=== PATIENT | male | born 1960 | race Caucasian/White ===

== ENCOUNTER 2022-02-05 01:37 | Inpatient (IN) | payer BC, OTHER ==
--- OUTSIDE RECORDS SUMMARY | 2022-02-05 01:39 | XMS REPORT | Continuity of Care Document ---
:1960 Author Organization [facility] t Address [address] [place] [address] Care Team Providers Name Role Phone Jorge Luis Gutierrez Jeffrey Attending Clinician Unavailable Eula Leal Attending Clinician Unavailable Eula Leal Admitting Clinician Unavailable Payers Payer Name Policy Type Policy Number Effective Date Expiration Date S ource Problems This patient has no known problems. Allergies, Adverse Reactions, Alerts This patient has no known allergies or adverse reactions. Medications This patient has no known medications. Procedures This patient has no known procedures. Encounters Start End Encounter Admission Attending Care Care Encounter Source Date/Time Date/Time Type Type Clinicians Facility Department ID 2021-07-07 Outpatient Matt AGUSTO [facility] Common 14:24:33 Jorge Luis [id number] [facility] 2021-07-07 Outpatient SHANELLE Gutierrez [facility] [id number] Common 14:15:52 Jorge Luis [id number] [facility] 2021-07-07 Outpatient Gutierrez, STLMLC [facility] [id number] Common 14:07:36 Jorge Luis 86893 [facility] 2021-07-07 Outpatient Gutierrez, STLMLC ST[facility] [id number] Common 13:48:57 Jorge Luis 32339 [facility] 2021-07-07 Outpatient Gutierrez, STLMLC STL[facility]C [id number] Common 13:38:11 Jorge Luis 54437 [facility] 2021-07-07 Outpatient Gutierrez, STLMLC STLMLC [id number] Common 13:37:43 Jorge Luis 36094 [facility] 2021-07-07 Outpatient Gutierrez, STLMLC STLMLC [id number] Common 13:37:06 Jorge Luis [id number] [facility] 2021-07-07 Outpatient Gutierrez, STLMLC STLMLC [id number] Common 13:16:26 Jorge Luis 40325 [facility] 2021-07-07 Outpatient Gutierrez, STLMLC STLMLC [id number] Common 13:06:08 Jorge Luis 80489 [facility] 2021-07-07 Outpatient Gutierrez, STLMLC STLMLC [id number] Common 12:05:34 Jorge Luis 24046 [facility] 2021-07-07 Outpatient Gutierrez, STLMLC ST[facility]C [id number] Common 11:49:58 Jorge Luis [id number] [facility] 2022-01-07 2022-01-07 [facility] [id number] 08:10:00 08:10:00 Eula [address] [facility] 2021-05-10 2021-05-10 ambulatory STLMLC STL[facility]C [id number] Common 00:00:00 00:00:00 [facility] 2021-04-15 2021-04-15 ambulatory STLMLC STL[facility]C [id number] Common 00:00:00 00:00:00 [facility] 2021-04-14 2021-04-14 ambulatory STLMLC ST[facility] [id number] Common 00:00:00 00:00:00 [facility] 2021-04-07 2021-04-07 Outpatient STLMLC [facility] [id number] Common : 00:00:00 [facility] 2021-03-18 2021-03-18 Outpatient STLMLC [facility] [id number] Common : 00:00:00 [facility] 2021-01-22 2021-01-22 Outpatient STLMLC STLMLC [id number] Common 00:00: 00:00:00 [facility] 2020-11-27 2020-11-27 Outpatient STLMLC STL[facility]C [id number] Common 00:00 00:00:00 [facility] 2020-10-30 2020-10-30 Outpatient STLMLC ST[facility]C [id number] Common 00:0000 00:00:00 [facility] 2020-04-06 2020-04-06 Outpatient STLMLC ST[facility] [id number] Common 00:00 00:00:00 [facility] 2020-03-27 2020-03-27 Outpatient STLMLC [facility] [id number] Common 00:0000 00:00:00 [facility] 2020-03-10 2020-03-10 Outpatient STLMLC ST[facility]C [id number] Common 00:00:00 00:00:00 [facility] Results Test Description Test Time Test Comments Results Result [facility] e Comments - CT LD LUNG CA 2022-01-10 SCREENING 00:00:00 [facility] Dia : 1960 Sex: M Name: JEB [facility] Berkey : 1960 Age/S: 61 / M [address] [place] [address] Unit #: [id number] Loc: [place] [address] Phys: Eula Leal MD Acct: [id number] Dis Date: Status: DEP CLI PHONE #: [phone] Exam Date: 01/07/2022 08 FAX #: [phone] Reason: TOBACCO USE EXAMS: CPT CODE: [id number] CT LD LUNG CA SCREENING 02981 PROCEDURE INFORMATION: Exam: CT Chest For Lung Cancer Screening Without Contrast Exam date and time: 01/07/2022 8:28 AM Age: 61 years old Clinical indication: Screening exam; Personal history of tobacco use/personal history of nicotine dependence Additional history: Asymptomatic patient meeting high-risk criteria for lung screening. Patient is currently a smoker. There is a 45 pack-year history of smoking. Baseline. TECHNIQUE: Imaging protocol: CT Chest. Low-dose for lung cancer screening without contrast. 3D rendering (Not supervised by radiologist): MIP and/or 3D reconstructed images were created by the technologist. Radiation optimization: All CT scans at this facility use at least one of these dose optimization techniques: automated exposure control; mA and/or kV adjustment per patient size (includes targeted exams where dose is matched to clinical indication); or iterative reconstruction. COMPARISON: No relevant prior studies available. FINDINGS: Lungs: The hypopharyngeal recesses are distended. The central tracheobronchial tree is grossly normal without intraluminal mass. Smooth interlobular septal thickening is noted at the lung bases which may represent mild pulmonary edema. Small nonspecific foci ground-glass pulmonary parenchymal opacity are noted at the lateral basal right lower lobe, ventral right middle lobe and the ventral upper lobes bilaterally. Ssoc-om-mtlhhovb centrilobular and paraseptal emphysema. A calcified granuloma at the ventral left upper lobe. Reticular scarring is present at the right middle lobe. Lung nodules: Nodule 1: Right lung. 4.5 mm solid nodule. Baseline. Series 4, image 42. Nodule 2: Right lung. 4.8 mm solid nodule. Baseline. Series 4, image 91. Nodule 3: Right lung. 3.2 mm solid nodule. Baseline. Series 4, image 119. Nodule 4: Right lung. 3.2 mm solid nodule. Baseline. Series 4, image 226. Nodule 5: Left lung. 4.2 mm solid nodule. Baseline. Series 4, image 211. Up to 5 most suspicious nodules are described. Pleural space: Nonspecific fissural thickening. No pneumothorax. No pleural effusion. PAGE 1 Signed Report (CONTINUED) Name: JEB [facility] Berkey : 1960 Age/S: 61 / M [address] [place] [address] Blvd Unit #: [id number] Loc: [place] [address] Phys: Eula Leal MD Acct: [id number] Dis Date: Status: DEP CLI PHONE #: [phone] Exam Date: 01/07/2022825 FAX #: [phone] Reason: TOBACCO USE EXAMS: CPT CODE: [id number] CT LD LUNG CA SCREENING 87699 (Continued) Heart: Yinh-hd-irvzftqx cardiomegaly with coronary artery calcifications. No pericardial fluid collection. Mediastinum: Unremarkable. Vasculature: Vascular calcification great vessels arising from the arch. Vascular calcification normal caliber thoracic aorta. Vascular calcification normal caliber proximal abdominal aorta with extension into the celiac and splenic arteries. Lymph nodes: Non threhold mediastinal lymph nodes. No enlarged lymph nodes. Stomach and bowel: Air is present within the esophageal lumen which may represent evidence of reflux and/or esophageal dysmotility. Physiologic fluid at the mediastinal pericardial recesses. Bones/joints: No acute osseous abnormality. Subcentimeter benign bone islands are noted at several of the thoracic and upper lumbar vertebral bodies. Soft tissues: Unremarkable. Other findings: None. IMPRESSION: 1.Category 2S: Negative, benign findings with no evidence of malignancy. Suggest next LDCT in 12 months if age less than 77 years. 2. Mild interstitial edema at the bases. 3. Scattered ground-glass pulmonary parenchymal opacities which could represent acute airspace disease. ASSESSMENT: Lung-RADS Score 2S at 1211 Reported and signed by: Milton Harris M.D. CC: Eula Leal MD Technologist:Chikis London RT(R)(CT) CTDI: DLP: Trnscb Date/Time: 01/10/2022 (1211) [email or web address] Orig Print D/T: S: 01/10/2022 (6222) PAGE 2 Signed Report COMPREHENSIVE METABOLIC PANEL 2021-11-22 03:38:27 Test Item Value Reference Range Interpretation Comme nts GLUCOSE (test code = 2216) 77 MG/DL 70-99 BUN (test code = 2207) 8 MG/DL 8-23 CREATININE (test code = 0.78 MG/DL 0.80-1.40 L 2213) eGFR (2020 CKD-EPI) (test 102 ML/MIN/1.73 >60 code = 23464) CALC BUN/CREAT (test code = 10 RATIO 6-28 2234) SODIUM (test code = 2230) 139 MEQ/L 133-146 POTASSIUM (test code = 4.1 MEQ/L 3.5-5.4 2227) CHLORIDE (test code = 2214) 99 MEQ/L 95-107 CARBON DIOXIDE (test code = 23 MEQ/L 19-31 2205) CALCIUM (test code = 2208) 9.9 MG/DL 8.5-10.5 PROTEIN, TOTAL (test code = 7.1 G/DL 6.1-8.3 2228) ALBUMIN (test code = 220) 4.6 G/DL 3.5-5.2 CALC GLOBULIN (test code = 2.5 G/DL 1.9-3.7 2239) CALC A/G RATIO (test code = 1.8 RATIO 1.0-2.6 2233) BILIRUBIN, TOTAL (test code 0.4 MG/DL See_Comment [Automated message] The = 2206) system which ge nerated this result transmit teresa reference range: <=1.2. T he reference range was not u sed to interpret this result as normal/abnormal . ALKALINE PHOSPHATASE (test 55 U/L 40-123 code = 2204) AST (test code = 2218) 31 U/L 9-50 ALT (test code = 2219) 20 U/L 5-50 UNLE SS OTHERWISE INDICATED, ALL TESTING PER FORMED [facility], [place] [address] [facility], [facility] [address] CTOR: MICHELLE BENTLEY M.D. CLIA NUMBER [id number] [place]. [id number]
[2022-02-05 02:06] LABS: Hematocrit 47.6 % (39.6-49.0); Lymphocytes % 16.4 % (15.3-44.8); MCV 99.4 fL (80-100); MPV 12.3 fL (7.6-11.3); RBC Red Blood Cell Count 4.79 M/uL (4.33-5.43)
[2022-02-05 02:26] LABS: Potassium 4.5 mmol/L (3.5-5.1); Troponin High Sensitivity 54.9 pg/mL (<58.9)
[2022-02-05 02:48] LABS: Blood Morphology Comment NOT SEEN (NOT SEEN); Platelet Estimate DECR; Platelets, Giant 1+; White Blood Cell Scan OK (OK)
--- NOTE | 2022-02-05 05:08 | EDPHYS ---
Physician Documentation [facility] Name: Jeb Choudhury Age: 61 yrs Sex: Male : 1960 Arrival Date: 02/05/2022 Time: 01:39 Bed 7 Private MD: ED Physician Jesse Alexandra HPI: 02/05 02:01 This 61 yrs old Male presents to ER via Ambulatory with complaints of Breathing ms3 Difficulty. 02:01 The patient has shortness of breath at rest. Onset: The symptoms/episode began/occurred ms3 acutely, 1.5 month(s) ago. Duration: The symptoms are continuous. The patient's shortness of breath has no apparent modifying factors. Associated signs and symptoms: The patient has no apparent associated signs or symptoms. Severity of symptoms: At their worst the symptoms were moderate in the emergency department the symptoms are unchanged. Historical: - Allergies: 01:54 No Known Allergies; bb - Home Meds: 01:54 trelegy [Active]; Atrovent Inhl [Active]; rosuvastatin oral [Active]; bb - PMHx: 01:54 Chronic obstructive lung disease; Hypertensive disorder; bb - Immunization history:: Flu vaccine is up to date. - Social history:: Smoking status: Patient/guardian denies using tobacco, Stopped _ months ago 1. ROS: 02:01 Constitutional: Negative for fever, and chills. Neck: Negative for injury, pain, and ms3 swelling, Cardiovascular: Negative for chest pain, and palpitations. Abdomen/GI: Negative for abdominal pain, nausea, vomiting, diarrhea, and constipation, MS/Extremity: Negative for injury and deformity, Skin: Negative for injury, rash, and discoloration, Neuro: Negative for headache, weakness, numbness, tingling. 02:01 Respiratory: Positive for dyspnea on exertion, orthopnea, shortness of breath. Exam: 02:01 Constitutional: This is a well developed, well nourished patient who is awake, alert, ms3 and in no acute distress. Head/Face: Normocephalic, atraumatic. Neck: Trachea midline, no cervical lymphadenopathy. Supple, full range of motion without nuchal rigidity, or vertebral point tenderness. No Meningismus. Chest/axilla: Normal chest wall appearance and motion. Nontender with no deformity. Respiratory: Lungs have equal breath sounds bilaterally, clear to auscultation and percussion. No rales, rhonchi or wheezes noted. No increased work of breathing, no retractions or nasal flaring. 02:01 Skin: Warm, dry with normal turgor. Normal color with no rashes, no lesions, and no evidence of cellulitis. Psych: Awake, alert, with orientation to person, place and time. Behavior, mood, and affect are within normal limits. 02:01 Cardiovascular: Rate: tachycardic, Rhythm: regular, Pulses: no pulse deficits are appreciated, Heart sounds: normal. 02:01 ECG was reviewed by the Attending Physician. Vital Signs: 01:51 BP 105 / 85; Pulse 124; Resp 28; Temp 98(A); Pulse Ox 95% on R/A; Weight 63.5 kg (R); bb Height 5 ft. 6 in. (167.64 cm) (R); 02:30 BP 113 / 88; Pulse 123; Resp 20; Pulse Ox 96% on R/A; jb4 04:00 BP 107 / 93; Pulse 124; Resp 20; Pulse Ox 100% on R/A; jb4 05:10 BP 120 / 91; Pulse 126; Resp 32; Pulse Ox 96% on R/A; tw5 06:01 BP 92 / 66; Pulse 111; Resp 25; Pulse Ox 93% on R/A; tw5 01:51 Body Mass Index 22.60 (63.50 kg, 167.64 cm) bb MDM: 02:01 Differential diagnosis: Anemia CHF exacerbation, Chronic Obstructive Pulmonary Disease ms3 Myocardial Infarction pulmonary edema. Data reviewed: vital signs, nurses notes, lab test result(s), EKG, radiologic studies, and as a result, I will admit patient. Data interpreted: monitoring analyst: rate is 125 beats/min, rhythm is sinus tachycardia, with no ectopy, Interpretation: normal rate, normal rhythm. Counseling: I had a detailed discussion with the patient and/or guardian regarding: the historical points, exam findings, and any diagnostic results supporting the discharge/admit diagnosis, lab results, radiology results, the need for further work-up and treatment in the hospital. ED course: No source of infection identified at this time. Pulmonary edema present 2/2 congestive heart failure. 02:16 Patient medically screened. ms3 02/05 01:53 Order name: Basic Metabolic Panel; Complete Time: 02:56 02/05 01:53 Order name: CBC with Diff; Complete Time: 02:56 02/05 01:53 Order name: Troponin HS; Complete Time: 02:56 tw02/05 01:54 Order name: SARS-COV-2 RT PCR (Document "Date of Onset" if Symptomatic); Complete Time: 02:56 02/05 02:12 Order name: CBC Smear Scan; Complete Time: 02:56 EDMS 02/05 02:57 Order name: BNP; Complete Time: 03:35 ms3 02/05 01:53 Order name: XRAY Chest (1 view) 02/05 01:53 Order name: EKG; Complete Time: 01:54 02/05 01:53 Order name: Cardiac monitoring; Complete Time: 01:53 tw02/05 01:53 Order name: EKG - Nurse/Tech; Complete Time: 02:01 02/05 01:53 Order name: IV Saline Lock; Complete Time: 01:53 02/05 02:17 Order name: CT Chest For PE Angio ms3 02/05 01:53 Order name: Labs collected and sent; Complete Time: 01:53 02/05 01:53 Order name: O2 Per Protocol; Complete Time: 02:01 02/05 01:53 Order name: O2 Sat Monitoring; Complete Time: 02:01 EC:01 Rate is 125 beats/min. Rhythm is regular. QRS [place] is Normal. [place] interval is normal. ms3 Clinical impression: Sinus tachycardia. Interpreted by me. Reviewed by me. Administered Medications: 05:11 Drug: Metoprolol 5 mg Route: IVP; Site: right antecubital; tw5 06:00 Follow up: Response: No adverse reaction 06:00 Drug: XANax (alprazolam) Tablet 0.5 mg Route: PO; tw5 Disposition Summary: 02/05/22 05:07 Hospitalization Ordered Hospitalization Status: Inpatient Admission ms3 Provider: Manish Gomes ms3 Condition: Stable ms3 Problem: new ms3 Symptoms: are unchanged ms3 Bed/Room Type: Standard ms3 Location: Telemetry/MedSurg (Inpatient)(08/27/22 10:56) dw Room Assignment: 416(02/05/22 10:56) dw Diagnosis - Tachycardia, unspecified ms3 - Shortness of breath ms3 - Congestive heart failure ms3 - pulmonary edema ms3 Forms: - Medication Reconciliation Form ms3 - SBAR form ms3 Signatures: Dispatcher [employer] EDMS Mercedes Clemente RN RN mw Woody, Diana, RN RN dw Ballard, Brenda, RN RN bb Sims, Marcus, DO DO ms3 Lisa Mackey tw5 Farrah Burton PA PA sb3 Corrections: (The following items were deleted from the chart) 05:12 05:08 This 61 yrs old Male presents to ER via Ambulatory with complaints of Breathing ms3 Difficulty. ms3 05:43 05:07 Telemetry/MedSurg (Inpatient) ms3 mw 05:43 05:07 ms3 mw 10:56 05:43 [facility] ER HOLD mw dw 10:56 05:43 ERHOLD- mw dw
--- NOTE | 2022-02-05 05:08 | ER ---
Nurse's Notes [facility] Name: Jeb Choudhury Age: 61 yrs Sex: Male : 1960 Arrival Date: 02/05/2022 Time: 01:39 Bed 7 Private MD: Diagnosis: Tachycardia, unspecified;Shortness of breath;Congestive heart failure;pulmonary edema Presentation: 02/05 01:51 Chief complaint: Spouse and/or significant other states: pt recently diagnosed with bb COPD and has had difficulty breathing for several months but it has gotten worse. Coronavirus screen: Client presents with at least one sign or symptom that may indicate coronavirus-19. Standard/surgical mask placed on the client. Ebola Screen: No symptoms or risks identified at this time. Initial Sepsis Screen: Does the patient meet any 2 criteria? No. Patient's initial sepsis screen is negative. Does the patient have a suspected source of infection? No. Patient's initial sepsis screen is negative. Risk Assessment: Do you want to hurt yourself or someone else? Patient reports no desire to harm self or others. Onset of symptoms was February 05, 2022. 01:51 Method Of Arrival: Ambulatory bb 01:51 Acuity: CHAD 3 bb Triage Assessment: 02:00 General: Appears uncomfortable, Behavior is appropriate for age, anxious. Respiratory: tw5 Reports shortness of breath at rest Onset: The symptoms/episode began/occurred the patient has moderate shortness of breath. Historical: - Allergies: 01:54 No Known Allergies; bb - Home Meds: 01:54 trelegy [Active]; Atrovent Inhl [Active]; rosuvastatin oral [Active]; bb - PMHx: 01:54 Chronic obstructive lung disease; Hypertensive disorder; bb - Immunization history:: Flu vaccine is up to date. - Social history:: Smoking status: Patient/guardian denies using tobacco, Stopped _ months ago 1. Screenin:53 Abuse screen: Denies threats or abuse. Denies injuries from another. Nutritional tw5 screening: No deficits noted. Tuberculosis screening: No symptoms or risk factors identified. Fall Risk None identified. Assessment: 01:43 General: Reports "I am not hurting, I just feel like I cannot breath. Pain: Denies tw5 pain. Neuro: Level of Consciousness is awake, alert, obeys commands, Oriented to person, place, time, situation. Cardiovascular:. Cardiovascular: Pulses are palpable in right radial artery and left radial artery. Respiratory: Airway is patent Trachea midline Respiratory effort is labored, Breath sounds are clear. 01:52 Cardiovascular: Rhythm is sinus tachycardia. tw5 03:00 Reassessment: Patient appears in no apparent distress at this time. Patient and/or jb4 family updated on plan of care and expected duration. Pain level reassessed. Patient is alert, oriented x 3, equal unlabored respirations, skin warm/dry/pink. 04:00 Reassessment: Patient appears in no apparent distress at this time. Patient and/or jb4 family updated on plan of care and expected duration. Pain level reassessed. Patient is alert, oriented x 3, equal unlabored respirations, skin warm/dry/pink. Patient states feeling better. 05:12 Reassessment: Patient appears in no apparent distress at this time. No changes from tw5 previously documented assessment. Patient and/or family updated on plan of care and expected duration. Pain level reassessed. Patient is alert, oriented x 3, equal unlabored respirations, skin warm/dry/pink. General: Appears in no apparent distress. Behavior is calm, cooperative. 05:52 Reassessment: Pt placed on 2L NC per providers instruction. jb4 Vital Signs: 01:51 BP 105 / 85; Pulse 124; Resp 28; Temp 98(A); Pulse Ox 95% on R/A; Weight 63.5 kg (R); bb Height 5 ft. 6 in. (167.64 cm) (R); 02:30 BP 113 / 88; Pulse 123; Resp 20; Pulse Ox 96% on R/A; jb4 04:00 BP 107 / 93; Pulse 124; Resp 20; Pulse Ox 100% on R/A; jb4 05:10 BP 120 / 91; Pulse 126; Resp 32; Pulse Ox 96% on R/A; tw5 06:01 BP 92 / 66; Pulse 111; Resp 25; Pulse Ox 93% on R/A; tw5 01:51 Body Mass Index 22.60 (63.50 kg, 167.64 cm) ED Course: 01:39 Patient arrived in ED. ja2 01:43 Lisa Mackey is Primary Nurse. tw5 01:53 Placed in gown. Bed in low position. Call light in reach. Side rails up X 1. Cardiac tw5 monitor on. Pulse ox on. NIBP on. Door closed. Noise minimized. Moved to private room. Warm blanket given. Verbal reassurance given. 01:53 Initial lab(s) drawn, by me, sent to lab. Inserted saline lock: 20 gauge in right tw5 antecubital area, using aseptic technique. Blood collected. 01:54 Triage completed. bb 02:00 Arm band placed on right wrist. tw5 02:01 Basic Metabolic Panel Sent. tw5 02:01 CBC with Diff Sent. tw5 02:01 Troponin HS Sent. tw5 02:01 SARS-COV-2 RT PCR (Document "Date of Onset" if Symptomatic) Sent. tw5 02:01 EKG done, by tech writer. reviewed by Jesse Alexandra DO. tw5 02:04 Jesse Alexandra DO is Attending Physician. ms3 02:09 XRAY Chest (1 view) In Process Unspecified. EDMS 03:26 CT Chest For PE Angio In Process Unspecified. EDMS 05:07 Manish Gomes is Hospitalizing Provider. ms3 05:11 No provider procedures requiring assistance completed. tw5 08:16 Patient admitted, IV remains in place. ph Administered Medications: 05:11 Drug: Metoprolol 5 mg Route: IVP; Site: right antecubital; tw5 06:00 Follow up: Response: No adverse reaction tw5 06:00 Drug: XANax (alprazolam) Tablet 0.5 mg Route: PO; tw5 Medication: 05:12 VIS not applicable for this client. tw5 Outcome: 05:07 Decision to Hospitalize by Provider. ms3 08:16 Admitted to ER Hold. Please see [facility] for further documentation. ph 08:16 Condition: stable 08:16 Instructed on the need for admit. 13:17 Patient left the ED. ll1 Signatures: Dispatcher [employer] Leonarda Adame RN RN bb Hall, Patricia, RN RN ph Bryson, James, RN RN jb4 Lewis, Lynsay, RN RN ll1 Jesse Alexandra DO DO ms3 Criselda Christian buddyShade Lisa Mackey tw5
[2022-02-05] MEDS ORDERED: METOPROLOL TARTRATE 5 MG/5 ML INJ IV ONE (05:17)
--- NOTE | 2022-02-05 05:48 | P.HP ---
Certification for Inpatient Patient admitted to: Inpatient With expected LOS: <2 Midnights Patient will require the following post-hospital care: None Practitioner: I am a practitioner with admitting privileges, knowledge of patient current condition, hospital course, and medical plan of care. Services: Services provided to patient in accordance with Admission requirements found in Title 42 Section 412.3 of the Code of Federal Regulations Patient History Date of Service: 02/05/22 Reason for admission: CHF/COPD History of Present Illness: Patient is a 61-year-old male with COPD and hypertension who presented to the ED with complaints of worsening shortness of breath. Patient states that he has been short of breath for about 2 months now but it has gotten worse to the point where he has to sit up when he sleeps at night he. He states he saw diesel technician mechanic about 2 weeks ago who started him on Trelegy and Atrovent and has been worse since starting those medications. He also reports that he saw a hotel reservationist for the first time today and was started on metoprolol and rosuvastatin. He is tachycardic and tachypneic upon arrival to the ER. Sa turating 95% on room air. CT chest showed small to moderate size right and small left pleural effusions. BNP elevated at 9000. WBC 12. 5 mg IV metoprolol given for tachycardia. He is admitted for further evaluation and treatment. Home medications list reviewed: Yes - Past Medical/Surgical History Diabetic: No -: Hypertension -: COPD Past Surgical History: Patient denies surgical history Psychosocial/ Personal History: Patient is . - Family History Family History: Reviewed- Non-Contributory - Social History Smoking Status: Former smoker Alcohol use: Yes CD- Drugs: No Caffeine use: Yes Place of Residence: Home Review of Systems Respiratory: Shortness of Breath Physical Examination - Physical Exam General: Alert, In no apparent distress, Mild distress HEENT: Atraumatic, PERRLA, EOMI, Sclerae nonicteric Neck: Supple, 2+ carotid pulse no bruit, No LAD, Without JVD or thyroid abnorm ality Respiratory: Clear to auscultation bilaterally, Normal air movement Cardiovascular: Regular rate/rhythm, Normal S1 S2 Gastrointestinal: Normal bowel sounds, No tenderness Musculoskeletal: No tenderness Integumentary: No rashes Neurological: Normal speech, Normal strength at 5/5 x4 extr, Normal tone, Normal affect - Studies Laboratory Data (last 24 hrs) 02/05/22 01:50: WBC 12.00 H, Hgb 15.8, Hct 47.6, Plt Count 91 L 02/05/22 01:50: Sodium 136, Potassium 4.5, BUN 14, Creatinine 1.30, Glucose 128 H Assessment and Plan - Problems (Diagnosis) (1) COPD (chronic obstructive pulmonary disease) Current Visit: Yes Status: Acute Qualifiers: COPD type: emphysema Emphysema type: unspecified Qualified Code(s): J43.9 - Emphysema, unspecified (2) CHF (congestive heart failure) Current Visit: Yes Status: Acute Qualifiers: Heart failure type: unspecified Heart failure chronicity: acute on chronic Qualified Code(s): I50.9 - Heart failure, unspecified (3) Hypertension Current Visit: Yes Status: Chronic Qualifiers: Hypertension type: primary hypertension Qualified Code(s): I10 - Essential (primary) hypertension - Plan -Patient denies history of CHF. BNP elevated and chest CT with pleural effusions. -Cardiology consulted. Echo ordered -Supplemental O2 and breathing treatments as needed. Monitor pulse ox -Lipid panel -Monitor and replete electrolytes per protocol -Reconcile and continue home medications -Lovenox for VTE ppx -Full code Discharge Plan: Home Plan to discharge in: 48 Hours - Advance Directives Does patient have a Living Will: No Does patient have a Durable POA for Healthcare: No - Code Status/Comfort Care Code Status Assessed: Yes (Full) Critical Care: No Time Spent Managing Pts Care (In Minutes): 50
[2022-02-05] MEDS ORDERED: ALPRAZOLAM 0.5 MG TABLET ONE (06:05)
[2022-02-05] MEDS ORDERED: ACETAMINOPHEN 500 MG TAB PO PRN (08:26)
[2022-02-05] MEDS ORDERED: ALBUTEROL 2.5 MG/3 ML NEB SOL NEB PRN (08:26)
[2022-02-05] MEDS ORDERED: ONDANSETRON 4 MG/2 ML VIAL IV PRN (08:26)
[2022-02-05] MEDS: ENOXAPARIN 40 MG/0.4 ML SQ SCH (09:00)
[2022-02-05] MEDS ORDERED: ENOXAPARIN 40 MG/0.4 ML SQ ONE (11:22)
[2022-02-05 11:42] VITALS: BMI 22.6
--- NOTE | 2022-02-05 13:10 | P.PN ---
Date of Service: 02/05/22 Patient seen and examined. He is still complaining of significant shortness of breath though his symptoms have improved. Physical examination reveal bilateral diminished breath sounds. Diagnosis: COPD exacerbation Acute CHF. Plan: IV steroid, scheduled bronchodilators. Start IV Lasix. Start oral Levaquin Echocardiogram is pending.
[2022-02-05] MEDS ORDERED: levoFLOXacin 750 MG TAB PO SCH (14:00)
[2022-02-05] MEDS: IPRATROPIUM BROM 0.5MG/2.5ML NEB SCH ×2 (14:34→20:35)
--- NOTE | 2022-02-05 15:18 | EKG ---
Test Date: 2022-02-05 Test Time: 02:01:41 Qa Software Test Engineer: ALINA MEASUREMENT RESULTS: Intervals: Rate: 125 GA: 160 QRSD: 98 QT: 314 QTc: 453 [place]: P: 23 GA: 160 QRS: 25 T: 79 INTERPRETIVE STATEMENTS: Sinus tachycardia Possible Left atrial enlargement Anterior infarct, age undetermined Abnormal ECG Compared to ECG 08/06/2010 20:06:28 Myocardial infarct finding now present Sinus rhythm no longer present Early repolarization no longer present Electronically Signed On 02-05-22 15:18:02 CDT by Remi Espinal
--- NOTE | 2022-02-05 15:42 | CON ---
Date of Consultation: 02/05/2022 Reason For Consultation: CHF/shortness of breath. History Of Present Illness: This is a 61-year-old male with history of COPD, hypertension, presented with worsening shortness of breath and some chest pressure that is happening for the past 2 months a nd worsening lately. The patient also has significant orthopnea, lower extremity edema, admitted wit h heart failure symptoms, started on diuresis. He feels better already. Past Medical History: Hypertension, COPD. Medications: Refer to reconciliation sheet for detailed list. Allergies: NO KNOWN DRUG ALLERGIES. Family History: No premature coronary artery disease or cancer. Social History: Ex-smoker. Does not drink or use any drugs. Review of Systems: All systems reviewed and they were negative except for what mentioned in HPI. Physical Examination: Vital Signs: Reviewed. Head and Neck: Pupils are equal, reactive to light. Intact eye movements. No JVD. No cervical lym phadenopathy. Neck is supple. Thyroid is not enlarged. Lungs: Clear to auscultation bilaterally. No rhonchi, wheezing, or crackles. No accessory muscle u se. Heart: Irregular. No extra sounds. Abdomen: Soft, nontender. Bowel sounds positive. No organomegaly. No masses or hernia. No rigidi ty or rebound. Extremities: No clubbing or cyanosis. Intact pulses. Skin: No rash. Neurologic: Alert, awake, oriented x3. No acute focal deficits appreciated. Investigations: BUN 14, creatinine 1.3. NT-proBNP is 9213 and his white blood cell count is 12,000, hemoglobin is 15.8. Assessment And Recommendations: 1.Chronic obstructive pulmonary disease exacerbation, on steroids and inhalers. 2.Congestive heart failure symptoms. The patient is known to have heart disease. Carefully use Las ix as his blood pressure is soft and maybe decrease the dose to 20 mg twice a day and monitor BUN, cr eatinine, and electrolytes very closely and we will plan for an echocardiogram and exercise stress te st as an outpatient. Please trend 2 more troponins. SR/MODL Voice ID: [id number] Report ID: [id number]
[2022-02-05] MEDS: FUROSEMIDE 40 MG/4 ML VIAL IV SCH ×2 (16:07→17:00)
[2022-02-05] MEDS: METHYLPREDNISOLONE 40 MG INJ IV SCH (17:52)
[2022-02-05 18:53] LABS: Urine Blood 2+ (Negative); Urine Clarity Clear (Clear); Urine Glucose Negative (Negative); Urine Protein 3+ (Negative)
[2022-02-05 19:08] LABS: Urine Color DK YELLOW (Yellow)
[2022-02-05 19:09] LABS: Urine Bacteria <20 /HPF (<20); Urine RBC <5 /HPF (None Seen)
[2022-02-05 19:17] LABS: Urine Bilirubin NEGATIVE (Negative)
[2022-02-06] MEDS: METHYLPREDNISOLONE 40 MG INJ IV SCH ×5 (00:46→23:40)
[2022-02-06] MEDS: IPRATROPIUM BROM 0.5MG/2.5ML NEB SCH ×4 (01:35→19:45)
[2022-02-06 06:23] LABS: Hematocrit 47.1 % (39.6-49.0); Lymphocytes % 6.6 % (15.3-44.8); MCV 99.1 fL (80-100); MPV 13.6 fL (7.6-11.3); RBC Red Blood Cell Count 4.75 M/uL (4.33-5.43)
[2022-02-06 06:38] LABS: Phosphorus 5.7 mg/dL (2.5-4.9); Potassium 4.7 mmol/L (3.5-5.1)
[2022-02-06 06:39] LABS: Magnesium 2.2 mg/dL (1.8-2.4); Thyroid Stimulating Hormone 1.71 uIU/mL (0.360-3.740)
[2022-02-06] MEDS: ENOXAPARIN 40 MG/0.4 ML SQ SCH (08:07)
[2022-02-06 08:14] LABS: Platelet Estimate ADEQ; Platelets, Giant 2
[2022-02-06 08:15] LABS: Blood Morphology Comment NOT SEEN (NOT SEEN)
[2022-02-06] MEDS ORDERED: FUROSEMIDE 40 MG/4 ML VIAL IV SCH (09:00)
--- NOTE | 2022-02-06 14:05 | PN ---
Date of Progress Note: 02/06/2022 Subjective: Seen by bedside. Continues to have significant shortness of breath on exertion. Review of Systems: No chest pain. Positive shortness of breath. No orthopnea. No nausea, vomiting, diarrhea, abdomina l pain. All other systems reviewed and they were negative. Physical Examination: Vital Signs: Reviewed. Head and Neck: Pupils are equal, reactive to light. Intact eye movements. No JVD. No cervical lym phadenopathy. Neck is supple. Thyroid is not enlarged. Lungs: Clear to auscultation bilaterally. No rhonchi, wheezing, or crackles. No accessory muscle u se. Heart: Regular rate and rhythm. No extra sounds. Abdomen: Soft, nontender. Bowel sounds positive. No organomegaly. No masses or hernia. No rigidi ty or rebound. Extremities: No clubbing or cyanosis. Intact pulses. Skin: No rash. Neurologic: Alert, awake, oriented x3. No acute focal deficits appreciated. Lymph Nodes: No cervical or axillary lymphadenopathy. Investigations: Creatinine is 1.77, up from 1.3. BUN is 33, up from 14. Hemoglobin 15.7. Assessment And Recommendations: 1.Shortness of breath, likely due to chronic obstructive pulmonary disease exacerbation. The patien t is on management with steroids and nebulizers. 2.Chronic diastolic heart failure. Please discontinue the Lasix. The patient is dehydrated and he might require some fluid boluses to restore the fluid status. 3.Acute renal failure due to diuresis. Discontinue Lasix and hydrate gently. SR/MODL Voice ID: [id number] Report ID: [id number]
--- NOTE | 2022-02-06 14:10 | P.PN ---
Subjective Date of Service: 02/06/22 Chief Complaint: CHF/COPD Patient states his shortness of breath is improved but states he is quite short of breath with ambulation. He is currently tolerating room air. Physical Examination - Vital Signs Temperature: 98.1 F Blood Pressure: 109/75 Pulse: 124 Respirations: 16 Pulse Ox (%): 94 Assessment And Plan - Plan Physical Exam General: Alert, In no apparent distress. Neck: Without JVD. Respiratory: Bilateral diminished breath sounds. No wheezes or rhonchi. Cardiovascular: Regular rate/rhythm, Normal S1 S2 Gastrointestinal: Normal bowel sounds, No tenderness Musculoskeletal: No tenderness Integumentary: No rashes Neurological: Normal speech, Normal strength at 5/5 x4 extr. Plan: Continue scheduled bronchodilators IV steroid Transition IV Lasix to p.o. Lasix. No indication for antibiotics at this time Home oxygen evaluation tomorrow. Increase activity as tolerated.
[2022-02-06] MEDS ORDERED: NA CHLORIDE 0.9% 1,000 ML ONE (23:41)
[2022-02-06] MEDS ORDERED: NA CHLORIDE 0.9% 1,000 ML IV SCH (23:45)
[2022-02-07] MEDS: IPRATROPIUM BROM 0.5MG/2.5ML NEB SCH ×2 (01:05→08:00)
[2022-02-07 05:44] LABS: Hematocrit 48.4 % (39.6-49.0); MCV 100.6 fL (80-100); MPV 12.5 fL (7.6-11.3); RBC Red Blood Cell Count 4.81 M/uL (4.33-5.43)
[2022-02-07 06:31] LABS: Blood Morphology Comment NOT SEEN (NOT SEEN); Platelet Estimate DECR; Platelets, Giant MANY
[2022-02-07] MEDS: METHYLPREDNISOLONE 40 MG INJ IV SCH ×2 (06:40→12:00)
--- NOTE | 2022-02-07 07:57 | RAD REPORT ---
EXAM DESCRIPTION: RAD - Chest Single View - 02/07/2022 6:54 am CLINICAL HISTORY: follow up pleural effusion COMPARISON: Chest Single View dated 02/05/2022; Chest For Pe Angio dated 02/05/2022 FINDINGS: Lines: None. Lungs: Increased right perihilar and left basilar opacities. Atelectasis is easily effusions. Increas ed pulmonary vascular markings. Pleural: Small effusions are present bilaterally. Cardiac: Cardiomegaly. Bones: No acute fractures. Other: IMPRESSION: Small pleural effusions without significant change. Increased perihilar and left basilar opacities likely representing atelectasis.
[2022-02-07] MEDS ORDERED: FUROSEMIDE 40 MG TABLET PO SCH (09:00)
[2022-02-07] MEDS ORDERED: ASPIRIN 81 MG CHEWABLE TABLET PO SCH (09:00)
[2022-02-07] MEDS ORDERED: ROSUVASTATIN 10 MG TAB PO SCH (09:00)
[2022-02-07] MEDS ORDERED: Fluticasone/Umeclidin/Vilanter [Trelegy Ellipta 100-62.5-25] Blst.W.Dev IH SCH (09:00)
--- NOTE | 2022-02-07 09:07 | P.DS ---
Admission Date: 02/05/22 Discharge Date: 02/07/22 Disposition: ROUTINE DISCHARGE Discharge Condition: FAIR Reason for Admission: CHF/COPD - Problems (1) Acute systolic heart failure Status: Acute (2) COPD exacerbation Status: Acute (3) Acute respiratory failure with hypoxia Status: Acute (4) Pleural effusion Status: Acute (5) Hypertension Status: Chronic Qualifiers: Hypertension type: primary hypertension Qualified Code(s): I10 - Essential (primary) hypertension Brief History of Present Illness: Patient is a 61-year-old male with COPD and hypertension who presented to the ED with complaints of worsening shortness of breath. Patient stated that he has been short of breath for about 2 months now but it got worse to the point where he had to sit up when he sleeps at night. He states he saw trestle mechanic about 2 weeks ago who started him on Trelegy and Atrovent made his symptoms worse. He also reported that he saw a supervisor/port director for the first time and was started on metoprolol and rosuvastatin. He was tachycardic and tachypneic upon arrival to the ER. Saturating 95% on room air. CT chest showed small to moderate size right and small left pleural effusions. BNP elevated at 9000. WBC 12. 5 mg IV metoprolol given for tachycardia. Patient admitted for further management. Hospital Course: Patient admitted to the medical floor and treated with scheduled bronchodilators, IV steroid for COPD exacerbation and IV Lasix for pleural effusion. Serum creatinine trended up a bit. IV Lasix was transitioned to oral Lasix. Serum creatinine trended down with oral Lasix No indication for antibiotics at this time Patient tolerated room air with good oxygen saturation. He is ambulatory Patient did echocardiogram which per cardiology report EF of 15 to 20%. Spouse mentioned patient is an alcoholic. 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 Case discussed with cardiology who follow-up with him in the office. He may also need a LifeVest Patient prescribed Entresto, Coreg. He is also prescribed bronchodilators and prednisone for COPD exacerbation. Vital Signs/Physical Exam: Temp Pulse Resp BP Pulse Ox 97.2 F 119 H 16 114/75 96 02/07/22 08:00 02/07/22 09:04 02/07/22 08:00 02/07/22 09:04 02/07/22 08:00 General: Alert, In no apparent distress, Oriented x3 HEENT: Mucous membr. moist/pink Neck: Supple, JVD not distended Respiratory: Normal air movement, Diminished (Bilateral) Cardiovascular: No edema, Regular rate/rhythm, Normal S1 S2 Gastrointestinal: Soft and benign, Non-distended, No ascites Integumentary: No rashes Neurological: Normal strength at 5/5 x4 extr Laboratory Data at Discharge: WBC 18.80 K/uL (4.3-10.9) H D 02/07/22 05:12 Hgb 15.9 g/dL (13.6-17.9) 02/07/22 05:12 Hct 48.4 % (39.6-49.0) 02/07/22 05:12 Plt Count 66 K/uL (152-406) L 02/07/22 05:12 Sodium 132 mmol/L (136-145) L 02/07/22 05:12 Potassium 4.0 mmol/L (3.5-5.1) 02/07/22 05:12 BUN 32 mg/dL (7-18) H 02/07/22 05:12 Creatinine 1.29 mg/dL (0.55-1.3) 02/07/22 05:12 Glucose 219 mg/dL (74-106) H 02/07/22 05:12 Phosphorus 5.7 mg/dL (2.5-4.9) H 02/06/22 05:41 Magnesium 2.2 mg/dL (1.8-2.4) 02/06/22 05:41 Triglycerides 90 mg/dL (<150) 02/06/22 05:41 Cholesterol 94 mg/dL (<200) 02/06/22 05:41 HDL Cholesterol 37 mg/dL (40-60) L 02/06/22 05:41 Cholesterol/HDL Ratio 2.54 02/06/22 05:41 Home Medications: Aspirin Chewable [Aspirin Chewable*] 81 mg PO DAILY 02/05/22 Fluticasone/Umeclidin/Vilanter [Trelegy Ellipta 100-62.5-25] 1 puff DAILY 02/05/22 Metoprolol Tartrate [Lopressor*] 25 mg PO BID 02/05/22 Rosuvastatin [Crestor*] 10 mg PO DAILY 02/05/22 Albuterol Neb [Proventil 0.083% Neb Soln] 2.5 mg NEB [id number] PRN #120 amp 02/07/22 Furosemide [Lasix*] 40 mg PO DAILY #30 tab 02/07/22 Ipratropium Neb [Atrovent*] 0.5 mg NEB [id number] #120 amp 02/07/22 Sacubitril/Valsartan [Entresto 24 mg-26 mg Tablet] 1 tab PO BID #60 tab 02/07/22 levoFLOXacin [Levaquin*] 750 mg PO Q48H #3 tab 02/07/22 predniSONE [Deltasone*] 10 mg PO DAILY #30 tab 02/07/22 New Medications: Ipratropium Neb [Atrovent*] 0.5 mg NEB [id number] #120 amp Albuterol Neb [Proventil 0.083% Neb Soln] 2.5 mg NEB [id number] PRN #120 amp PRN Reason: Shortness Of Breath predniSONE [Deltasone*] 10 mg PO DAILY #30 tab Sacubitril/Valsartan [Entresto 24 mg-26 mg Tablet] 1 tab PO BID #60 tab Furosemide [Lasix*] 40 mg PO DAILY #30 tab levoFLOXacin [Levaquin*] 750 mg PO Q48H #3 tab Physician Discharge Instructions: Alcohol cessation advised. Diet: AHA Activity: Fall precautions Followup: NONE,NONE [Primary Care Provider] - Time spent managing pt's care (in minutes): 36
[2022-02-07 09:19] VITALS: O2SAT 94
--- NOTE | 2022-02-07 11:30 | RAD REPORT ---
EXAM DESCRIPTION: CT - Chest For Pe Angio - 02/05/2022 6:21 am CLINICAL HISTORY: Shortness of breath, tachycardia COMPARISON: None Available TECHNIQUE: Multiple helical axial tomographic images were obtained of the chest following administra tion of intravenous contrast per angiographic protocol. MIP reformatted images were obtained. This exam was performed according to our departmental dose-optimization program, which includes autom ated exposure control, adjustment of the mA and/or kV according to patient size and/or use of iterati ve reconstruction technique. FINDINGS: Thyroid gland: unremarkable. Axilla: unremarkable. Pulmonary arteries: Evaluation of the peripheral subsegmental pulmonary arteries in the right lower l obe limited due to suboptimal opacification. Remainder of the pulmonary arteries appear patent. No ev idence of pulmonary embolism. Aorta: Aortic atherosclerosis is present. Evaluation of the aorta is limited due to suboptimal enhanc ement. Mediastinum: Unremarkable. No adenopathy. Heart: Heart is enlarged. Coronary artery calcifications are present. Lungs/airways: Airways are patent. There is a 3 mm nodule in the left lower lobe (series 401, image 6 1). There is a 3 mm subpleural nodule in the left upper lobe (series 401, image 124). There is a 3 mm subpleural nodule in the right middle lobe (series 401, image 59). There is a calcified granuloma in the left upper lobe anteriorly. There are few small opacities in both lungs. Mild centrilobular emph ysematous changes are present. Mild dependent atelectasis noted bilaterally. There is mild pulmonary interstitial thickening. Pleural spaces: There are small to moderate size right and small left pleural effusions. No pneumotho rax. Osseous: Unremarkable. Soft tissues: Unremarkable. Visualized abdomen: There is reflux of contrast into the hepatic veins and IVC suggesting right heart dysfunction. IMPRESSION: 1. Limited evaluation of the peripheral pulmonary arteries in the right lower lobe as ab ove. Otherwise, no evidence of pulmonary embolism. 2. Small to moderate size right and small left pleural effusions. 3. Few small opacities in both lungs which may be infectious or inflammatory. 4. Few small pulmonary nodules measuring up to 3 mm. A non-contrast Chest CT at 12 months is optional . If performed and the nodule is stable at 12 months, no further follow-up is recommended. These guid elines do not apply to immunocompromised patients and patients with cancer. Follow up in patients wit h significant comorbidities as clinically warranted. For lung cancer screening, adhere to Lung-RADS g uidelines. Reference: Radiology. 2017; 284(1):228-43. 5. Reflux of contrast into hepatic veins and IVC suggesting right heart dysfunction. 6. Emphysematous changes. 7. Mild pulmonary interstitial thickening which may reflect mild pulmonary edema. Electronically signed by: Ricky Wolff MD 02/05/2022 4:42 AM CDT Due to temporary technical issues with the PACS/Fluency reporting system, reports are being signed by the in house radiologists without review as a courtesy to insure prompt reporting. The interpreting radiologist is fully responsible for the content of the report.
--- NOTE | 2022-02-07 11:44 | RAD REPORT ---
EXAM DESCRIPTION: RAD - Chest Single View - 02/05/2022 2:07 am CLINICAL HISTORY: The patient is 61 years old and is Male; SOB TECHNIQUE: Frontal view of the chest. COMPARISON: No relevant prior studies available. FINDINGS: Lungs: Prominent interstitial markings which may indicate mild interstitial edema. No co nsolidation. Pleural space: Unremarkable. No pneumothorax. Heart: Cardiac silhouette appears enlarged. Mediastinum: Unremarkable. Bones/joints: Unremarkable. IMPRESSION: 1. Prominent interstitial markings which may indicate mild interstitial edema. No cons olidation. 2. Cardiac silhouette appears enlarged. Electronically signed by: Terrell Rivera MD 02/05/2022 2:36 AM CDT Due to temporary technical issues with the PACS/Fluency reporting system, reports are being signed by the in house radiologists without review as a courtesy to insure prompt reporting. The interpreting radiologist is fully responsible for the content of the report.
--- NOTE | 2022-02-07 12:09 | PN ---
Date of Progress Note: 02/07/2022 Mr. Choudhury was admitted to Dr. Gomes on 02/05/2022 with congestive heart failure and COPD exacerbat ion. He has elevated creatinine, sinus tachycardia, white count of 8000, creatinine of 1.29. BNP is 9213. He has COPD. We think he may be dehydrated. I think he needs to be gently hydrated. Lasix should be stopped. Continue inhalers, steroid, antibiotics, and Lovenox. Echocardiogram is pending for today. We will see what that shows before making further decisions. Meanwhile, hold the Lasix a nd hydrate gently. NB/MODL Voice ID: [id number] Report ID: [id number]
[2022-02-07 13:06] VITALS: BP 112/72; TEMP 97.4
--- NOTE | 2022-02-07 14:32 | ECHO ---
HEIGHT: 5 ft 6 in WEIGHT: 140 lb 0 oz DATE OF STUDY: 02/07/[address]: Farrah Burton 2-DIMENSIONAL: YES M.MODE: YES DOPPLER: YES COLOR FLOW: YES TDS: PORTABLE: YES DEFINITY: BUBBLE STUDY: DIAGNOSIS: CONGESTIVE HEART FAILURE CARDIAC HISTORY: CATHERIZATION: NO SURGERY: NO PROSTHETIC VALVE: NO PACEMAKER: NO MEASUREMENTS (cm) DIASTOLIC (NORMALS) SYSTOLIC (NORMALS) IVSd 1.1 (0.6-1.2) LA Diam 3.4 (1.9-4.0) LVEF 15-20% LVIDd 6.7 (3.5-5.7) LVIDs 5.9 (2.0-3.5) %FS 11% LVPWd 1.1 (0.6-1.2) Ao Diam 2.8 (2.0-3.7) 2 DIMENSIONAL ASSESSMENT: RIGHT ATRIUM: NORMAL LEFT ATRIUM: NORMAL RIGHT VENTRICLE: NORMAL LEFT VENTRICLE: SEVERELY DILATED TRICUSPID VALVE: MILD TRICUSPID REGURGITATION MITRAL VALVE: MODERATE MITRAL REGURGITATION PULMONIC VALVE: NORMAL AORTIC VALVE: NORMAL PERICARDIAL EFFUSION: TRACE AORTIC ROOT: NORMAL LEFT VENTRICULAR WALL MOTION: SEVERE GLOBAL HYPOKINESIS DOPPLER/COLOR FLOW: SEE BELOW COMMENTS: SEVERELY DEPRESSED LEFT VENTRICULAR EJECTION FRACTION 15-20%. SEVERE GLOBAL HYPOKINESIS. MODERATE MITRAL REGURGITATION. MILD TRICISPID REGURGITATION. LARGE PLEURAL EFFUSION. TECHNOLOGIST: BRYSON MALIK
--- NOTE | 2022-02-08 08:17 | EKG ---
Test Date: 2022-02-06 Test Time: 22:59:18 Industrial Relations Commissioner: RT-O MEASUREMENT RESULTS: Intervals: Rate: 126 AL: 164 QRSD: 104 QT: 322 QTc: 466 [place]: P: -11 AL: 164 QRS: -9 T: 118 INTERPRETIVE STATEMENTS: Sinus tachycardia Anterior infarct, age undetermined T wave abnormality, consider lateral ischemia Abnormal ECG Compared to ECG 02/05/2022 02:01:41 T-wave abnormality now present Possible ischemia now present Myocardial infarct finding still present Electronically Signed On 02-08-22 08:12:34 CDT by Artemio Christopher
== END 2022-02-07 13:00 | disposition home or self-care (01) | DRG 291 ==
LOC: ER 01:37 → ERHOLD 05:33 → 4TH 12:02
PROVIDERS: ADMIT Internal Medicine; ATTEND Internal Medicine
DX: I11.0 Hypertensive heart disease with heart failure (principal); I50.21 Acute systolic (congestive) heart failure; J96.01 Acute respiratory failure with hypoxia; N17.9 Acute kidney failure, unspecified; J43.9 Emphysema, unspecified; I42.6 Alcoholic cardiomyopathy; E86.0 Dehydration; T50.2X5A Adverse effect of carbonic-anhydrase inhibitors, benzothiadiazides and other diuretics, initial encounter; Z87.891 Personal history of nicotine dependence; Z79.899 Other long term (current) drug therapy; Z79.82 Long term (current) use of aspirin; Z79.52 Long term (current) use of systemic steroids; Z20.822 Contact with and (suspected) exposure to COVID-19
CPT/HCPCS: 36415; 71045; 71275; 80048; 80061; 81001; 83735; 83880; 84100; 84443; 84484; 85025; 93005; 93306; 94640; 94760; 96374; 99285; J1650; J1940; J2920; J7030; Q9967; U0003

== ENCOUNTER 2022-02-15 21:53 | Inpatient (IN) | payer OTHER ==
--- OUTSIDE RECORDS SUMMARY | 2022-02-15 21:56 | XMS REPORT | Continuity of Care Document ---
:1960 Author Organization [facility] t Address [address] [place] [address] Care Team Providers Name Role Phone Jorge Luis Gutierrez Jeffrey Attending Clinician Unavailable Eula Leal Attending Clinician Unavailable Eula Lela Admitting Clinician Unavailable Payers Payer Name Policy [...] Facility Department ID 2021-07-07 Outpatient Matt AGUSTO [facility] Common 14:24:33 Jorge Luis [id number] [facility] 2021-07-07 Outpatient SHANELLE Gutierrez [facility] [id number] Common 14:15:52 Jorge Luis [id number] [facility] 2021-07-07 Outpatient Gutierrez, STLMLC STLMLC [id number] Common 14:07:36 Jorge Luis 45807 [facility] 2021-07-07 Outpatient Gutierrez, STLMLC STLMLC [id number] Common 13:48:57 Jorge Luis 19361 [facility] 2021-07-07 Outpatient Gutierrez, STLMLC STLMLC [id number] Common 13:38:11 Jorge Luis 93218 [facility] 2021-07-07 Outpatient Gutierrez, STLMLC STLMLC [id number] Common 13:37:43 Jorge Luis 72416 [facility] 2021-07-07 Outpatient Gutierrez, STLMLC STLMLC [id number] Common 13:37:06 Jorge Luis [id number] [facility] 2021-07-07 Outpatient Gutierrez, STLMLC STLMLC [id number] Common 13:16:26 Jorge Luis 20421 [facility] 2021-07-07 Outpatient Gutierrez, STLMLC STLMLC [id number] Common 13:06:08 Jorge Luis 37008 [facility] 2021-07-07 Outpatient Gutierrez, STLMLC STLMLC [id number] Common 12:05:34 Jorge Luis 05513 [facility] 2021-07-07 Outpatient Gutierrez, STLMLC STLMLC [id number] Common 11:49:58 Jorge Luis 10207 [facility] 2022-01-07 2022-01-07 [facility] [id number] [facility] 08:10:00 08:10:00 Eula [address] [facility] 2021-05-10 2021-05-10 ambulatory STLMLC STLMLC [id number] Common 00:00:00 00:00:00 [facility] 2021-04-15 2021-04-15 ambulatory STLMLC STLMLC [id number] Common 00:00:00 00:00:00 [facility] 2021-04-14 2021-04-14 ambulatory STLMLC STLMLC [id number] Common 00:00:00 00:00:00 [facility] 2021-04-07 2021-04-07 Outpatient STLMLC STLMLC [id number] Common : 00:00:00 [facility] 2021-03-18 2021-03-18 Outpatient STLMLC STLMLC [id number] Common : 00:00:00 [facility] 2021-01-22 2021-01-22 Outpatient STLMLC STLMLC [id number] Common 00:00: 00:00:00 [facility] 2020-11-27 2020-11-27 Outpatient STLMLC STLMLC [id number] Common 00:00 00:00:00 [facility] 2020-10-30 2020-10-30 Outpatient STLMLC STLMLC [id number] Common 00:0000 00:00:00 [facility] 2020-04-06 2020-04-06 Outpatient STLMLC STLMLC [id number] Common 00:00 00:00:00 [facility] 2020-03-27 2020-03-27 Outpatient STLMLC STLMLC [id number] Common 00:0000 00:00:00 [facility] 2020-03-10 2020-03-10 Outpatient STLMLC STLMLC [id number] Common 00:00:00 00:00:00 [facility] Results Test Description Test Time Test Comments Results Result [facility] e Comments - CT LD LUNG CA 2022-01-10 SCREENING 00:00:00 [facility] ROBERJEB Dia : 1960 Sex: M Name: JEB HOSKINS [facility] Velma : 1960 Age/S: 61 / M [address] [place] [address] Unit #: [id number] Loc: [place] [address] Phys: Eula Leal MD Acct: [id number] Dis Date: Status: DEP CLI PHONE #: [phone] Exam Date: 01/07/2022 08 FAX #: [phone] Reason: TOBACCO USE EXAMS: CPT CODE: [id number] CT LD LUNG CA SCREENING 31921 PROCEDURE INFORMATION: Exam: CT Chest For Lung [...] lobe and the ventral upper lobes bilaterally. Xbdb-hj-icubfqgw centrilobular and paraseptal emphysema. A calcified granuloma [...] 1 Signed Report (CONTINUED) Name: JEB HOSKINS [facility] Velma : 1960 Age/S: 61 / M [address] [place] [address] Blvd Unit #: [id number] Loc: [place] [address] Phys: Eula Leal MD Acct: [id number] Dis Date: Status: DEP CLI PHONE #: [phone] Exam Date: 01/07/2022825 FAX #: [phone] Reason: TOBACCO USE EXAMS: CPT CODE: [id number] CT LD LUNG CA SCREENING 08026 (Continued) Heart: Xlly-cn-xcadnbio cardiomegaly with coronary artery calcifications. No pericardial [...] (1211) [email or web address] Orig Print D/T: S: 01/10/2022 (0992) PAGE 2 Signed Report COMPREHENSIVE METABOLIC PANEL 2021-11-22 03:38:27 Test Item Value Reference Range Interpretation Comme nts GLUCOSE (test code = 2216) 77 MG/DL 70-99 BUN (test code = 2207) 8 MG/DL 8-23 CREATININE (test code = 0.78 MG/DL 0.80-1.40 L 2213) eGFR (2020 CKD-EPI) (test 102 ML/MIN/1.73 >60 code = 41715) CALC BUN/CREAT (test code = 10 RATIO [...] [facility] [place] [address] [facility], [facility] [address] LABORATORY DIRE CTOR: MICHELLE BENTLEY M.D. CLIA NUMBER [id number] [place] [id number]
[2022-02-15 23:03] LABS: Protime INR 1.19
[2022-02-15 23:16] LABS: Absolute Lymphocytes (CBC) 2.4 K/uL (0.7-4.9); Lymphocytes % 16.2 % (15.3-44.8); MCV 97.9 fL (80-100); MPV 12.1 fL (7.6-11.3); RBC Red Blood Cell Count 5.01 M/uL (4.33-5.43)
[2022-02-15 23:41] LABS: Magnesium 1.8 mg/dL (1.8-2.4); Potassium 3.3 mmol/L (3.5-5.1)
[2022-02-15 23:44] LABS: Troponin High Sensitivity 124.3 pg/mL (<58.9)
[2022-02-15] MEDS ORDERED: NA CHLORIDE 0.9% 500 ML ONE (23:55)
[2022-02-16 00:19] LABS: Blood Morphology Comment NOT SEEN (NOT SEEN); Platelet Estimate DECR; White Blood Cell Scan OK (OK)
[2022-02-16 00:25] LABS: Urine Blood Negative (Negative); Urine Glucose Negative (Negative); Urine Protein Negative (Negative); Urine Specific Gravity 1.015 (1.005-1.030)
[2022-02-16 00:43] LABS: Urine Mucus Slight /HPF (None Seen); Urine RBC <5 /HPF (None Seen)
[2022-02-16] MEDS ORDERED: METOPROLOL TAR 25 MG TAB ONE (02:04)
[2022-02-16] MEDS ORDERED: NA CHLORIDE 0.9% 250 ML ONE (02:04)
[2022-02-16] MEDS ORDERED: VANCOMYCIN 1 GM/VIAL ONE (02:04)
[2022-02-16] MEDS ORDERED: DIGOXIN 0.25 MG/ML AMP ONE (02:04)
[2022-02-16] MEDS ORDERED: CEFEPIME 1 GM/VIAL ONE (02:05)
[2022-02-16] MEDS ORDERED: NA CHLORIDE 0.9% 100 ML ONE (02:05)
--- NOTE | 2022-02-16 02:19 | ER ---
Nurse's Notes [facility] Name: Jeb Choudhury Age: 61 yrs Sex: Male : 1960 Arrival Date: 02/15/2022 Time: 21:54 Bed 3 Private MD: Diagnosis: Unspecified combined systolic (congestive) and diastolic (congestive) heart failure;Cellulitis of abdominal wall;Hypotension, unspecified Presentation: 02/15 22:01 Chief complaint: Patient states: abdominal rash started 2 days ago and now spreading to 3 buttocks. Ebola Screen: No symptoms or risks identified at this time. Initial Sepsis Screen: Does the patient meet any 2 criteria? RR > 20 per min. Systolic BP < 90 mmHg. HR > 90 bpm. Does the patient have a suspected source of infection? Yes: Skin breakdown/wound If YES to both, name of provider notified: Drake Colon MD. 22:01 Method Of Arrival: Ambulatory [facility] 22:09 Coronavirus screen: Vaccine status: Patient reports receiving the 2nd dose of the covid eh3 vaccine. Initial Sepsis Screen: Does the patient meet any 2 criteria?. Risk Assessment: Do you want to hurt yourself or someone else? Patient reports no desire to harm self or others. Onset of symptoms was February 12, 2022. 22:09 Acuity: CHAD 2 eh3 Triage Assessment: 22:11 General: Appears in no apparent distress. comfortable, Behavior is calm, cooperative, eh3 appropriate for age. Pain: Denies pain. Neuro: Level of Consciousness is awake, alert, obeys commands, Oriented to person, place, time, situation. Cardiovascular: Capillary refill < 3 seconds Patient's skin is warm and dry. Respiratory: Airway is patent Respiratory effort is even, labored, shallow. GI: No signs and/or symptoms were reported involving the gastrointestinal system. : No signs and/or symptoms were reported regarding the genitourinary system. Derm: Rash noted that is papular, red, raised, on right lower quadrant and left lower quadrant. Musculoskeletal: No signs and/or symptoms reported regarding the musculoskeletal system. Historical: - Allergies: 22:11 No Known Allergies; eh3 - Home Meds: 22:11 Atrovent Inhl [Active]; rosuvastatin Oral [Active]; trelegy [Active]; eh3 - PMHx: 22:11 Chronic obstructive lung disease; Hypertensive disorder; eh3 - Immunization history:: Adult Immunizations up to date. - Social history:: Smoking status: Patient/guardian denies using tobacco, Stopped _ months ago 2 Patient uses alcohol, occasionally. Screenin:40 Abuse screen: Denies threats or abuse. Denies injuries from another. Nutritional kd3 screening: No deficits noted. Tuberculosis screening: No symptoms or risk factors identified. Fall Risk IV access (20 points). Assessment: 22:40 General: Appears in no apparent distress. Behavior is calm, cooperative. Neuro: Level kd3 of Consciousness is awake, alert, obeys commands, Oriented to person, place, time, situation. Cardiovascular: Patient's skin is warm and dry. Respiratory: Airway is patent Trachea midline Respiratory effort is even, unlabored, Respiratory pattern is regular, symmetrical. 23:22 Reassessment: No changes from previously documented assessment. Patient and/or family kd3 updated on plan of care and expected duration. Pain level reassessed. Patient is alert, oriented x 3, equal unlabored respirations, skin warm/dry/pink. 02/16 02:44 Reassessment: No changes from previously documented assessment. Patient and/or family kd3 updated on plan of care and expected duration. Pain level reassessed. Patient is alert, oriented x 3, equal unlabored respirations, skin warm/dry/pink. Patient denies pain at this time. Vital Signs: 02/15 22:09 BP 83 / 62; Pulse 99; Resp 24; Temp 98.2(TE); Pulse Ox 100% on R/A; Weight 65.77 kg; 3 Height 5 ft. 6 in. (167.64 cm); Pain 0/10; 22:15 BP 115 / 69; Pulse 103; Resp 20; Pulse Ox 98% on R/A; kd3 22:48 BP 89 / 61; Pulse 95; Resp 20; Pulse Ox 97% on R/A; kd3 23:22 BP 86 / 58; Pulse 95; Resp 20; Pulse Ox 97% on R/A; kd3 02/16 00:26 BP 102 / 73; Pulse 104; Resp 16; Pulse Ox 96% on R/A; kd3 01:20 BP 97 / 60; Pulse 127; Resp 19; Pulse Ox 96% on R/A; kd3 01:26 BP 90 / 63 RA (man/); aa9 01:26 BP 100 / 67 RA (man/); aa9 01:51 BP 105 / 67; Pulse 125; Resp 19; Pulse Ox 97% on R/A; kd3 02:21 BP 103 / 64; Pulse 122; Pulse Ox 96% on R/A; aa9 02:43 BP 118 / 75; Pulse 120; Resp 19; Pulse Ox 99% ; kd3 05:03 BP 90 / 59; Pulse 99; Resp 18; Pulse Ox 98% on R/A; kd3 06:17 BP 91 / 64; Pulse 102; Resp 18; Pulse Ox 95% on R/A; kd3 02/15 22:09 Body Mass Index 23.40 (65.77 kg, 167.64 cm) 3 ED Course: 02/15 21:54 Patient arrived in ED. ja2 21:57 Drake Soto PA is PHCP. cp 21:57 Drake Colon MD is Attending Physician. cp 22:10 Triage completed. eh3 22:11 Arm band placed on right wrist. eh3 22:36 Camilla Vuong, JESSI is Primary Nurse. kd3 22:40 Patient has correct armband on for positive identification. kd3 22:40 No provider procedures requiring assistance completed. Inserted saline lock: 20 gauge kd3 in right forearm, using aseptic technique. Blood collected. 22:46 Troponin HS Sent. kd3 22:46 PT-INR Sent. kd3 22:46 NT PRO-BNP Sent. kd3 22:46 Magnesium Sent. kd3 22:46 CBC with Diff Sent. kd3 22:46 Basic Metabolic Panel Sent. kd3 22:57 XRAY Chest (1 view) In Process Unspecified. EDMS 23:54 US Extremity Venous W Compression Merlin In Process Unspecified. EDMS 02/16 00:20 Blood Culture Adult (2) Sent. kd3 00:20 Lactate Sent. kd3 00:20 Procalcitonin Sent. kd3 00:26 Urine Microscopic Only Sent. kd3 02:16 Manish Gomes is Hospitalizing Provider. cp 05:05 Patient admitted, IV remains in place. kd3 Administered Medications: 02/15 23:48 Drug: NS 0.9% 500 ml Route: IV; Rate: bolus; Site: right forearm; aa9 02/16 05:07 Follow up: IV Status: Completed infusion kd3 02:13 Drug: vancoMYCIN 1 grams Route: IVPB; Infused Over: 2 hrs; Site: right antecubital; kd3 05:04 Follow up: IV Status: Completed infusion kd3 02:13 Drug: Cefepime 1 grams Route: IVPB; Rate: 200 ml/hr; Infused Over: 30 mins; Site: left kd3 antecubital; 05:04 Follow up: IV Status: Completed infusion; IV Intake: 250ml kd3 02:13 Drug: Digoxin 0.5 mg Route: IVP; Site: right antecubital; kd3 05:04 Follow up: Response: No adverse reaction kd3 02:13 Drug: Metoprolol 25 mg Route: PO; kd3 05:04 Follow up: Response: No adverse reaction kd3 02:43 Drug: Potassium Effervescent Tablet 25 mEq Route: PO; kd3 05:04 Follow up: Response: No adverse reaction kd3 02:43 Drug: Lovenox (enoxaparin) 1 mg/kg Route: Sub-Q; Site: right upper arm; kd3 05:04 Follow up: Response: No adverse reaction kd3 Medication: 02/15 22:40 VIS not applicable for this client. kd3 Intake: 02/16 05:04 IV: 250ml; Total: 250ml. kd3 Outcome: 02:18 Decision to Hospitalize by Provider. cp 05:05 Admitted to ER Hold. Please see [facility] for further documentation. kd3 05:05 Condition: stable 05:05 Discharge instructions given to patient, family, Instructed on the need for admit, Demonstrated understanding of instructions. 20:26 Patient left the ED. bb Signatures: Dispatcher [employer] Leonarda Adame RN RN bb Drake Soto PA PA cp Alexander, Jessica ja2 Doucette, Kyli, RN RN kd3 Juana Howard RN RN eh3 Paulette Robb RN RN aa9
--- NOTE | 2022-02-16 02:19 | EDPHYS ---
Physician Documentation [facility] Name: Jeb Choudhury Age: 61 yrs Sex: Male : 1960 Arrival Date: 02/15/2022 Time: 21:54 Bed 3 Private MD: ED Physician Drake Colon HPI: 02/15 22:30 This 61 yrs old Male presents to ER via Ambulatory with complaints of Rash, Leg cp Swelling. 22:30 The patient's rash thought to be caused by an unknown cause. The rash is located on the cp lower abdomen and buttock and soles of feet. The rash can be described as erythematous. Onset: The symptoms/episode began/occurred several days ago. Associated signs and symptoms: Pertinent positives: swelling of lower legs, Pertinent negatives: fever, Pain. Severity of symptoms: in the emergency department the symptoms are worse. Historical: - Allergies: 22:11 No Known Allergies; eh3 - Home Meds: 22:11 Atrovent Inhl [Active]; rosuvastatin Oral [Active]; trelegy [Active]; eh3 - PMHx: 22:11 Chronic obstructive lung disease; Hypertensive disorder; eh3 - Immunization history:: Adult Immunizations up to date. - Social history:: Smoking status: Patient/guardian denies using tobacco, Stopped _ months ago 2 Patient uses alcohol, occasionally. ROS: 22:35 Constitutional: Negative for body aches, chills, fever, poor PO intake. cp 22:35 Cardiovascular: Positive for edema, Negative for chest pain, palpitations. cp 22:35 Respiratory: Negative for cough, shortness of breath, wheezing. 22:35 Abdomen/GI: Negative for abdominal pain, nausea, vomiting, and diarrhea. 22:35 ENT: Negative for drainage from ear(s), ear pain, sore throat, difficulty swallowing, cp difficulty handling secretions. 22:35 Skin: Positive for rash, of the lower abdomen and buttocks and soles of feet. cp 22:35 Neuro: Negative for altered mental status. Exam: 22:40 Constitutional: The patient appears in no acute distress, alert, awake, cp non-diaphoretic, non-toxic, well developed, well nourished. 22:40 Head/Face: Normocephalic, atraumatic. cp 22:40 Eyes: Periorbital structures: appear normal, Conjunctiva: normal, no exudate, no injection, Sclera: no appreciated abnormality, Lids and lashes: appear normal, bilaterally. 22:40 ENT: External ear(s): are unremarkable, Nose: is normal, Mouth: Lips: moist, Oral mucosa: pink and intact, moist, Posterior pharynx: Airway: no evidence of obstruction, patent. 22:40 Neck: ROM/movement: is normal, is supple, without pain, no range of motions limitations. 22:40 Chest/axilla: Inspection: normal, Palpation: is normal, no crepitus, no tenderness. 22:40 Cardiovascular: Rate: tachycardic, Rhythm: regular, Edema: is not appreciated, JVD: is not appreciated. 22:40 Respiratory: the patient does not display signs of respiratory distress, Respirations: normal, no use of accessory muscles, no retractions, labored breathing, is not present, Breath sounds: are clear throughout, no decreased breath sounds, no stridor, no wheezing. 22:40 Abdomen/GI: Inspection: well circumscribed, erythematous rash to lower abdomen, Bowel cp sounds: active, all quadrants, Palpation: soft, in all quadrants, mild abdominal tenderness, in the right lower quadrant and left lower quadrant, rebound tenderness, is not appreciated, involuntary guarding, is not appreciated. 22:40 Neuro: Orientation: to person, place \T\ time. Mentation: is normal, Motor: moves all fours, strength is normal, Gait: is steady. 22:45 ECG was reviewed by the Attending Physician. cp Vital Signs: 22:09 BP 83 / 62; Pulse 99; Resp 24; Temp 98.2(TE); Pulse Ox 100% on R/A; Weight 65.77 kg; eh3 Height 5 ft. 6 in. (167.64 cm); Pain 0/10; 22:15 BP 115 / 69; Pulse 103; Resp 20; Pulse Ox 98% on R/A; kd3 22:48 BP 89 / 61; Pulse 95; Resp 20; Pulse Ox 97% on R/A; kd3 23:22 BP 86 / 58; Pulse 95; Resp 20; Pulse Ox 97% on R/A; kd3 09/07 00:26 BP 102 / 73; Pulse 104; Resp 16; Pulse Ox 96% on R/A; kd3 01:20 BP 97 / 60; Pulse 127; Resp 19; Pulse Ox 96% on R/A; kd3 01:26 BP 90 / 63 RA (man/); aa9 01:26 BP 100 / 67 RA (man/); aa9 01:51 BP 105 / 67; Pulse 125; Resp 19; Pulse Ox 97% on R/A; kd3 02:21 BP 103 / 64; Pulse 122; Pulse Ox 96% on R/A; aa9 02:43 BP 118 / 75; Pulse 120; Resp 19; Pulse Ox 99% ; kd3 05:03 BP 90 / 59; Pulse 99; Resp 18; Pulse Ox 98% on R/A; kd3 06:17 BP 91 / 64; Pulse 102; Resp 18; Pulse Ox 95% on R/A; kd3 02/15 22:09 Body Mass Index 23.40 (65.77 kg, 167.64 cm) eh3 MDM: 02/15 22:09 Patient medically screened. [facility] 02/16 02:00 Data reviewed: vital signs, nurses notes, lab test result(s), EKG, radiologic studies, cp CT scan, plain films, I have discussed the patient's presentation/case with the attending Emergency Department Physician; and as a result, I will admit patient. 02:00 Test interpretation: by ED physician or midlevel provider: ECG, plain radiologic cp studies. 02/15 22:25 Order name: Basic Metabolic Panel; Complete Time: 23:45 cp 02/15 23:45 Interpretation: Normal except: K 3.3; BUN 19. cp 02/15 22:25 Order name: CBC with Diff; Complete Time: 00:35 cp 02/15 23:44 Interpretation: Normal except: WBC 14.50; PLT 68; MPV 12.1; NEUT A 10.2; MNA 1.8. cp 02/15 22:25 Order name: Magnesium; Complete Time: 23:45 cp 02/15 22:25 Order name: NT PRO-BNP; Complete Time: 23:45 cp 02/15 23:45 Interpretation: Abnormal: NT PRO-BNP 2523. cp 02/15 22:25 Order name: PT-INR; Complete Time: 23:44 cp 02/15 22:25 Order name: Troponin HS; Complete Time: 23:45 cp 02/16 00:36 Interpretation: Abnormal: Troponin HS 124.3. cp 02/15 23:21 Order name: CBC Smear Scan; Complete Time: 00:35 EDMS 02/16 00:35 Interpretation: Reviewed. cp 02/15 23:50 Order name: Urine Microscopic Only cp 02/15 23:50 Order name: Lactate cp 02/15 23:50 Order name: Procalcitonin cp 02/15 23:50 Order name: Blood Culture Adult (2) cp 02/16 00:25 Order name: Urine Dipstick-Ancillary; Complete Time: 00:35 EDMS 02/16 00:44 Order name: Urine Microscopic Only; Complete Time: 01:21 EDMS 02/16 01:07 Order name: Lactate; Complete Time: 01:21 EDMS 02/15 22:25 Order name: XRAY Chest (1 view) 02/15 22:26 Order name: US Extremity Venous W Compression Merlin 02/15 23:54 Order name: CT Chest For PE Angio cp 02/15 23:54 Order name: CT Abd/Pelvis - IV Contrast Only 02/16 01:07 Order name: Procalcitonin; Complete Time: 01:21 EDDE 02/16 02:46 Order name: CT EDDE 02/16 02:47 Order name: CT EDDE 02/16 07:17 Order name: CBC with Automated Diff EDDE 02/16 07:21 Order name: Basic Metabolic Panel EDDE 02/16 07:21 Order name: Creatine Phosphokinase EDDE 02/16 07:21 Order name: CKMB Creatine Kinase MB EDDE 02/16 07:21 Order name: Troponin High Sensitivity EDDE 02/16 07:21 Order name: Magnesium EDDE 02/16 09:06 Order name: SARS RAPID bd 02/16 10:19 Order name: SARS-COV-2 Antigen Rapid EDDE 02/16 18:28 Order name: Troponin High Sensitivity EDDE 02/15 22:25 Order name: EKG; Complete Time: 22:38 cp 02/15 22:25 Order name: Cardiac monitoring; Complete Time: 22:44 cp 02/15 22:25 Order name: EKG - Nurse/Tech; Complete Time: 22:44 cp 02/15 22:25 Order name: IV Saline Lock; Complete Time: 22:44 cp 02/15 22:25 Order name: Labs collected and sent; Complete Time: 22:44 cp 02/15 22:25 Order name: O2 Per Protocol; Complete Time: 22:44 cp 02/15 22:25 Order name: O2 Sat Monitoring; Complete Time: 22:44 cp 02/15 23:50 Order name: Urine Dipstick-Ancillary (obtain specimen); Complete Time: 00:26 cp EC/06 22:45 Rate is 95 beats/min. Rhythm is regular. OK interval is normal. QRS interval is cp prolonged at 104 msec. QT interval is prolonged at 402 msec. T waves are Inverted in leads I, aVL, V4, V5, V6. Interpreted by me. Reviewed by me. Administered Medications: 23:48 Drug: NS 0.9% 500 ml Route: IV; Rate: bolus; Site: right forearm; aa9 02/16 05:07 Follow up: IV Status: Completed infusion kd3 02:13 Drug: vancoMYCIN 1 grams Route: IVPB; Infused Over: 2 hrs; Site: right antecubital; kd3 05:04 Follow up: IV Status: Completed infusion kd3 02:13 Drug: Cefepime 1 grams Route: IVPB; Rate: 200 ml/hr; Infused Over: 30 mins; Site: left kd3 antecubital; 05:04 Follow up: IV Status: Completed infusion; IV Intake: 250ml kd3 02:13 Drug: Digoxin 0.5 mg Route: IVP; Site: right antecubital; kd3 05:04 Follow up: Response: No adverse reaction kd3 02:13 Drug: Metoprolol 25 mg Route: PO; kd3 05:04 Follow up: Response: No adverse reaction kd3 02:43 Drug: Potassium Effervescent Tablet 25 mEq Route: PO; kd3 05:04 Follow up: Response: No adverse reaction kd3 02:43 Drug: Lovenox (enoxaparin) 1 mg/kg Route: Sub-Q; Site: right upper arm; kd3 05:04 Follow up: Response: No adverse reaction kd3 Disposition Summary: 02/16/22 02:18 Hospitalization Ordered Hospitalization Status: Inpatient Admission cp Provider: Manish Gomes cp Condition: Stable cp Problem: new cp Symptoms: are unchanged cp Bed/Room Type: Standard cp Location: Telemetry/MedSurg (Inpatient)(02/16/22 19:54) Room Assignment: 223(02/16/22 19:54) dw Diagnosis - Unspecified combined systolic (congestive) and diastolic (congestive) heart failure cp - Cellulitis of abdominal wall cp - Hypotension, unspecified cp Discharge Instructions: - Discharge Summary Sheet kd3 Forms: - Medication Reconciliation Form cp - SBAR form kd3 Signatures: Dispatcher [employer] Karli Del Castillo RN RN Drake Wood MD MD cha Page, Corey, Matilde Chowdary cp RN Camilla Sanchez RN RN 3 Juana Howard RN RN 3 Paulette Robb, RN RN aa9 Corrections: (The following items were deleted from the chart) 04: 02:18 Telemetry/MedSurg (Inpatient) cp cg 04: 02:18 cp cg 06:21 06:19 Constitutional: The patient appears in no acute distress, alert, awake, cp non-diaphoretic, non-toxic, well developed, well nourished, unkempt, cp 19:54 04:29 [facility] ER HOLD cg dw 19:54 04:29 ERHOLD- cg dw
[2022-02-16] MEDS ORDERED: POTASSIUM 25 MEQ EFFERV TAB ONE (02:43)
[2022-02-16] MEDS ORDERED: ENOXAPARIN 60 MG/0.6 ML SQ ONE (02:44)
--- NOTE | 2022-02-16 02:45 | RAD REPORT ---
EXAM DESCRIPTION: CT - Chest For Pe Angio - 02/16/2022 12:51 am CLINICAL HISTORY: edema COMPARISON: Chest For Pe Angio dated 02/05/2022; Lung Cancer Screening CT W/O dated 03/20/2020 TECHNIQUE: Dynamically enhanced axial 3 mm thick images of the chest were obtained during administra tion of <100> mL Isovue 370 IV contrast. Coronal and oblique reconstruction images were generated and reviewed. Exam utilizes a protocol for optimal evaluation of pulmonary arterial tree. Maximum intensity projections 3D imaging was utilized All CT scans are performed using dose optimization technique as appropriate and may include automated exposure control or mA/KV adjustment according to patient size. FINDINGS: Chest Wall: No suspicious thyroid nodules or pathologic lymphadenopathy. Lungs: Emphysema. Calcifications along the left upper lobe. No acute process. Subpleural, non masslik e nodularity along the right upper lobe is noted. A few other tiny pulmonary nodules noted. Pleura: Small pleural effusions. Mediastinum/kvng: No pathologic lymphadenopathy. Pulmonary arteries/Aorta: No filling defect identified. No aortic aneurysm. Heart: No significant pericardial effusion. Normal heart size. Scattered coronary artery calcificatio ns. Upper abdomen: No acute abnormality. Bones: No acute abnormality. IMPRESSION: Negative for pulmonary embolism. Small pleural effusions which are decreased from prior. Overall, there has been improved aeration of the lungs compared with 02/05/2022. Pulmonary nodules which can be further evaluated with a 12 month follow-up chest CT.
--- NOTE | 2022-02-16 02:47 | RAD REPORT ---
EXAM DESCRIPTION: CTAbdomen Pelvis W Contrast - 02/16/2022 12:51 am CLINICAL HISTORY: abdomen pain COMPARISON: No comparisons TECHNIQUE: CT of the abdomen and pelvis was performed. All CT scans are performed using dose optimization technique as appropriate and may include automated exposure control or mA/KV adjustment according to patient size. FINDINGS: Lower chest: Small pleural effusions. Liver: No acute abnormality or suspicious lesions. Biliary: Contracted gallbladder. Stomach: No significant focal abnormality. Duodenum: No significant focal abnormality. Pancreas: No significant abnormality. Spleen: No significant abnormality. Adrenal: No suspicious lesions. Kidney/ureter: No hydronephrosis. No renal calculi. Retroperitoneum: No retroperitoneal adenopathy. Vascular: No aneurysm. Atherosclerosis. Bowel: No significant focal abnormality. Moderate stool in the colon. No appendicitis. Peritoneum: No ascites or free air. Bladder: Grossly unremarkable. Reproductive: No adnexal masses. Bones: No acute fracture. Sclerotic focus in T12 is likely a bone island. Other: n/a IMPRESSION: No acute intra-abdominal or pelvic finding.
--- NOTE | 2022-02-16 04:40 | P.HP ---
Certification for Inpatient Patient admitted to: Inpatient With expected LOS: >2 Midnights Patient will require the following post-hospital care: None Practitioner: I am a practitioner with admitting privileges, knowledge of patient current condition, hospital course, and medical plan of care. Services: Services provided to patient in accordance with Admission requirements found in Title 42 Section 412.3 of the Code of Federal Regulations Patient History Date of Service: 02/16/22 Reason for admission: CHF, Elevated Troponin History of Present Illness: Patient is a 61-year-old male with COPD, hypertension, alcohol abuse, and systolic CHF (EF 15-20%) who presented to the ED with complaints of lower abdominal circumferential rash and pedal edema. He states he first noticed the rash about 2 days ago and states that it itches. Patient was discharged from this facility 1 week ago after new diagnosis of CHF and treatment of COPD exacerbation. He was discharged with entresto, coreg, bronchodilators, lasix, and prednisone. He states he has been taking his medications as prescribed. His labs today are significant for WBC 14.5, K 3.3, trop HS 124, BNP 2500, procal 0.33, lactic acid 1.8. Patient is afebrile and tachycardic (although he is chronically tachycardic). He also got slightly hypotensive in the ED. He received 1/2 fluid and was started on vanc and cefepime for suspected cellulitus. He denies chest pain. He is admitted for further evaluation and treatment of CHF, cellulitus, and hypotension. Allergies No Known Allergies Allergy (Unverified 02/05/22 08:26) Home medications list reviewed: Yes Home Medications: Aspirin Chewable [Aspirin Chewable*] 81 mg PO DAILY 02/05/22 Fluticasone/Umeclidin/Vilanter [Trelegy Ellipta 100-62.5-25] 1 puff DAILY 02/05/22 Metoprolol Tartrate [Lopressor*] 25 mg PO BID 02/05/22 Rosuvastatin [Crestor*] 10 mg PO DAILY 02/05/22 Albuterol Neb [Proventil 0.083% Neb Soln] 2.5 mg NEB [id number] PRN #120 amp 02/07/22 Furosemide [Lasix*] 40 mg PO DAILY #30 tab 02/07/22 Ipratropium Neb [Atrovent*] 0.5 mg NEB [id number] #120 amp 02/07/22 Sacubitril/Valsartan [Entresto 24 mg-26 mg Tablet] 1 tab PO BID #60 tab 02/07/22 levoFLOXacin [Levaquin*] 750 mg PO Q48H #3 tab 02/07/22 predniSONE [Deltasone*] 10 mg PO DAILY #30 tab 02/07/22 - Past Medical/Surgical History Diabetic: No -: Hypertension -: COPD Past Surgical History: Patient denies surgical history Psychosocial/ Personal History: Patient is . - Family History Family History: Reviewed- Non-Contributory - Social History Smoking Status: Former smoker Alcohol use: Yes CD- Drugs: No Caffeine use: Yes Place of Residence: Home Review of Systems Musculoskeletal: Pedal edema Integumentary: Rash Physical Examination - Physical Exam General: Alert, In no apparent distress HEENT: Atraumatic, PERRLA, EOMI, Sclerae nonicteric Neck: Supple, 2+ carotid pulse no bruit, No LAD, Without JVD or thyroid abnormality Respiratory: Clear to auscultation bilaterally, Normal air movement Cardiovascular: Edema, Irregular heart rate/rhythm Gastrointestinal: Normal bowel sounds, No tenderness Integumentary: Rash(es) Neurological: Normal speech, Normal strength at 5/5 x4 extr, Normal tone, Normal affect - Studies Laboratory Data (last 24 hrs) 02/15/22 22:34: WBC 14.50 H D, Hgb 16.5, Hct 49.0, Plt Count 68 L 02/15/22 22:34: Sodium 138, Potassium 3.3 L, BUN 19 H, Creatinine 0.88, Glucose 102, Magnesium 1.8 02/15/22 22:25: PT 13.1 H, INR 1.19 Assessment and Plan - Problems (Diagnosis) (1) Sinus tachycardia Current Visit: Yes Status: Chronic (2) Elevated troponin Current Visit: Yes Status: Acute (3) Rash and nonspecific skin eruption Current Visit: Yes Status: Acute (4) CHF (congestive heart failure) Current Visit: Yes Status: Chronic Qualifiers: Heart failure type: systolic Heart failure chronicity: acute on chronic Qualified Code(s): I50.23 - Acute on chronic systolic (congestive) heart failure (5) COPD (chronic obstructive pulmonary disease) Current Visit: Yes Status: Chronic Qualifiers: COPD type: unspecified COPD Qualified Code(s): J44.9 - Chronic obstructive pulmonary disease, unspecified (6) Hypertension Current Visit: Yes Status: Chronic Qualifiers: Hypertension type: primary hypertension Qualified Code(s): I10 - Essential (primary) hypertension - Plan -Initial troponin elevated at 124. Recent history of CHF. Could be secondary to demand ischemia. Will repeat and trend. -Cardiology consult -Rash could be secondary to new medications although unknown at this point. He complains only of itch. Received cefepime and vanc in ED. -Chest xray showed bilateral pleural effusions, improved, but similar to previous imaging. 1+ pedal edema bilaterally noted. -Monitor on telemetry -Reconcile and continue home medications -Monitor and replete electrolytes per protocol -Lovenox for VTE ppx -Full code Discharge Plan: Home Plan to discharge in: 48 Hours - Advance Directives Does patient have a Living Will: No Does patient have a Durable POA for Healthcare: No - Code Status/Comfort Care Code Status Assessed: Yes (Full) Critical Care: No Time Spent Managing Pts Care (In Minutes): 50
[2022-02-16] MEDS ORDERED: ACETAMINOPHEN 500 MG TAB PO PRN (06:00)
[2022-02-16] MEDS ORDERED: ALBUTEROL 2.5 MG/3 ML NEB SOL NEB PRN ×2 (06:00→13:00)
[2022-02-16] MEDS ORDERED: ONDANSETRON 4 MG/2 ML VIAL IV PRN (06:00)
[2022-02-16 07:03] LABS: Absolute Lymphocytes (CBC) 2.1 K/uL (0.7-4.9); Hematocrit 46.7 % (39.6-49.0); MCV 98.2 fL (80-100); MPV 11.5 fL (7.6-11.3); RBC Red Blood Cell Count 4.76 M/uL (4.33-5.43)
[2022-02-16 07:20] LABS: CKMB Creatine Kinase MB 2.4 ng/mL (1.0-3.6); Magnesium 1.9 mg/dL (1.8-2.4); Potassium 4.1 mmol/L (3.5-5.1)
[2022-02-16 07:21] LABS: Troponin High Sensitivity 118.5 pg/mL (<58.9)
[2022-02-16 10:18] LABS: SARS-CoV-2 Antigen Rapid Res Positive (Negative)
[2022-02-16] MEDS ORDERED: HYDROCORTISONE 1 % CREAM 30GM TOP PRN (11:00)
--- NOTE | 2022-02-16 12:47 | EKG ---
Test Date: 2022-02-15 Test Time: 22:40:21 Housetrailer Servicer: ALEJANDRINA MEASUREMENT RESULTS: Intervals: Rate: 95 SD: 168 QRSD: 104 QT: 402 QTc: 505 [place]: P: 60 SD: 168 QRS: -20 T: 85 INTERPRETIVE STATEMENTS: Normal sinus rhythm Possible Left atrial enlargement T wave abnormality, consider lateral ischemia Prolonged QT Abnormal ECG Compared to ECG 02/06/2022 22:59:18 Prolonged QT interval now present Sinus tachycardia no longer present Myocardial infarct finding no longer present T-wave abnormality still present Possible ischemia still present Electronically Signed On 02-16-22 12:46:36 CDT by Remi Espinal
[2022-02-16] MEDS ORDERED: ENOXAPARIN 40 MG/0.4 ML SQ SCH (15:00)
--- NOTE | 2022-02-16 16:26 | P.PN ---
Date of Service: 02/16/22 Patient seen and examined. Patient has pruritic rash-erythematous, maculopapular. I suspect contact dermatitis versus psoriasis. Patient seen by cardiology for advanced heart failure, EF 15 to 20%. Dr. Espinal is planning cardiac catheterization. He is COVID-positive but asymptomatic. Plan: Start hydrocortisone cream for the dermatitis. Resume Home medications for heart failure. Resume Lasix. Cardiology is planning cardiac catheterization. Monitor and optimize electrolytes.
--- NOTE | 2022-02-16 19:34 | CON ---
Date of Consultation: 02/16/2022 Reason For Consultation: Elevated troponin and congestive heart failure. History Of Present Illness: This 61-year-old male known to me very well, saw him recently in the [facility]. EF is below 20%. No ischemia workup was done on him in the past. The patient was stabilized and sent home. Apparently he comes back short of breath, generally weak and troponin is elevated an d also he was diagnosed with COVID. He is having some low-grade fever, but no significant cough or s hortness of breath. Past Medical History: Severe systolic heart failure with ejection fraction less than 20%. He has hi story of hypertension, COPD. He is alcoholic. Medications: Refer reconciliation sheet for detailed list. Medication list reviewed. Allergies: NO KNOWN DRUG ALLERGIES. Family History: No premature coronary artery disease or cancers. Social History: He is an ex-smoker. He drinks alcohol on a regular basis heavily and does not use a ny drugs. Review of Systems: All systems reviewed and are negative except as mentioned in HPI. Physical Examination: Vital Signs: Reviewed. Head And Neck: Pupils are equal and reactive to light. Intact eye movements. No JVD. No cervical lymphadenopathy. Neck is supple. Thyroid is not enlarged. Lungs: Clear to auscultation bilaterally. No rhonchi, rales, or crackles. No accessory muscle use. Heart: Regular rate and rhythm. No extra sounds. Abdomen: Soft, nontender. Bowel sounds positive. No organomegaly. No masses or hernia. No rigidi ty or rebound. Extremities: No clubbing or cyanosis. Positive edema bilaterally 1+. Neurologic: Alert, awake, and oriented x3. No acute focal deficits appreciated. Investigations: Troponin 124 and then 118. BUN is 19, creatinine 0.7. Hemoglobin is 15.4, white bl ood cell count 14.2. Assessment And Recommendations: 1.Elevated troponin. This is likely demand. Patient has tested positive for COVID. The patient is known to have severely depressed heart function and will need ischemic evaluation once his COVID con dition is more stable. 2.Severe systolic heart failure, borderline elevated troponin. Patient will need a coronary angiogr am, however, not on an emergent basis. We will wait until his COVID status is under control and plan for coronary angiogram and likely we plan to do it before discharge during this hospital stay. Thank you for the consult. SR/MODL Voice ID: [id number] Report ID: [id number]
[2022-02-16] MEDS: SACUBITRIL/VALSARTAN 24/26 MG TAB PO SCH (20:16)
[2022-02-17 02:36] VITALS: BMI 22.4
[2022-02-17 06:29] LABS: Absolute Lymphocytes (CBC) 1.6 K/uL (0.7-4.9); Hematocrit 45.8 % (39.6-49.0); Lymphocytes % 11.6 % (15.3-44.8); RBC Red Blood Cell Count 4.67 M/uL (4.33-5.43)
[2022-02-17 06:43] LABS: Magnesium 1.8 mg/dL (1.8-2.4); Potassium 3.8 mmol/L (3.5-5.1)
[2022-02-17] MEDS ORDERED: POTASSIUM CL SA 10 MEQ TAB PO ONE (09:00)
[2022-02-17] MEDS ORDERED: MAGNESIUM SULFATE 1 gm IVPB 1 GM/100 ML BAG IV ONE (09:00)
[2022-02-17] MEDS: ASPIRIN 81 MG CHEWABLE TABLET PO SCH (09:40)
[2022-02-17] MEDS: FUROSEMIDE 40 MG TABLET PO SCH (09:40)
[2022-02-17] MEDS: SACUBITRIL/VALSARTAN 24/26 MG TAB PO SCH ×2 (09:40→21:45)
[2022-02-17] MEDS: carvediloL 3.125 MG TAB PO SCH ×2 (09:41→17:02)
[2022-02-17] MEDS: ROSUVASTATIN 10 MG TAB PO SCH (09:41)
--- NOTE | 2022-02-17 11:15 | RAD REPORT ---
EXAM DESCRIPTION: US - Extrem Venous W Compress Merlin - 02/15/2022 11:48 pm CLINICAL HISTORY: The patient is 61 years old and is Male; SWELLING TECHNIQUE: Real-time duplex ultrasound scan of the bilateral lower extremity veins integrating B-mod e two-dimensional vascular structure, Doppler spectral analysis, color flow Doppler imaging and compr ession. COMPARISON: No relevant prior studies available. FINDINGS: Right deep veins: Unremarkable. No DVT in the visualized common femoral, femoral, or p opliteal veins. The veins demonstrate normal color flow, are normally compressible where visualized , with normal phasic flow and/or augmentation response. Left deep veins: Unremarkable. No DVT in the visualized common femoral, femoral, or popliteal v eins. The veins demonstrate normal color flow, are normally compressible where visualized, with nor mal phasic flow and/or augmentation response. Soft tissues: No acute findings. IMPRESSION: No evidence of DVT in the bilateral lower extremity veins. Electronically signed by: Terrell Rivera MD 02/16/2022 12:12 AM CDT Due to temporary technical issues with the PACS/Fluency reporting system, reports are being signed by the in house radiologists without review as a courtesy to insure prompt reporting. The interpreting radiologist is fully responsible for the content of the report.
--- NOTE | 2022-02-17 11:26 | RAD REPORT ---
EXAM DESCRIPTION: RAD - Chest Single View - 02/15/2022 10:56 pm CLINICAL HISTORY: 61 years Male edema COMPARISON: None TECHNIQUE: AP view of the chest was obtained. FINDINGS: Cardiac silhouette is enlarged. Central vessels are moderately increased. Small bilateral pleural effusions. Mild perihilar and infrahilar airspace opacities bilaterally. No p neumothorax. IMPRESSION: Enlarged heart with mild congestive heart failure. Atelectatic change versus infiltrate or pulmonary congestion lower lungs bilaterally. Electronically signed by: Ashley Pack MD 02/15/2022 11:24 PM CDT Due to temporary technical issues with the PACS/Fluency reporting system, reports are being signed by the in house radiologists without review as a courtesy to insure prompt reporting. The interpreting radiologist is fully responsible for the content of the report.
--- NOTE | 2022-02-17 14:21 | P.PN ---
Subjective Date of Service: 02/17/22 Chief Complaint: CHF, Elevated Troponin Patient denies any shortness of breath. He is not orthopnea. He has an inguinal and suprapubic skin rash which is improving. Physical Examination - Vital Signs Temperature: 97.9 F Blood Pressure: 102/67 Pulse: 95 Respirations: 20 Pulse Ox (%): 97 Assessment And Plan - Current Problems (Diagnosis) (1) Chronic systolic heart failure Current Visit: Yes Status: Acute (2) Elevated troponin Current Visit: Yes Status: Acute (3) Rash and nonspecific skin eruption Current Visit: Yes Status: Acute (4) COPD (chronic obstructive pulmonary disease) Current Visit: Yes Status: Chronic Qualifiers: COPD type: unspecified COPD Qualified Code(s): J44.9 - Chronic obstructive pulmonary disease, unspecified (5) Sinus tachycardia Current Visit: Yes Status: Chronic (6) Pleural effusion Current Visit: No Status: Acute - Plan Physical Exam General: Alert, In no apparent distress Neck: Supple, No LAD, Without JVD. Respiratory: Clear to auscultation bilaterally, Normal air movement Cardiovascular: Edema, Irregular heart rate/rhythm Gastrointestinal: Normal bowel sounds, No tenderness Integumentary: Rash-inguinal, suprapubic area, bilateral gluteal and posterior aspect of right upper thigh which is improving Neurological: Normal speech, Normal strength at 5/5 x4 extr, Normal affect. Plan: Patient appears to be compensated for CHF. Continue maintenance Lasix, Entresto. Added Coreg given tachycardia. Cardiology-Dr. Espinal recommend cardiac catheterization for newly diagnosed LV dysfunction. LV dysfunction likely alcohol related. I suspect contact dermatitis and treating with hydrocortisone cream. Rash is improving. Bronchodilators as needed for COPD. Cardiology to follow.
--- NOTE | 2022-02-17 21:40 | PN ---
Date of Progress Note: 02/17/2022 Subjective: Seen at bedside, lying comfortably in the bed. No complaints. Review of Systems: No chest pain, but has shortness of breath on minimal exertion. No orthopnea. No nausea, vomiting, or diarrhea. No abdominal pain. No dysuria, polyuria, or urinary urgency. No skin rash. All other systems were reviewed and they were negative. Objective: Vital Signs: Reviewed. Head and Neck: Pupils are equal and reactive to light. Intact eye movements. No JVD. No cervical lymphadenopathy. Neck is supple. Thyroid is not enlarged. Lungs: Clear to auscultation bilaterally. No rhonchi, rales, or crackles. No accessory muscle use. Heart: Irregularly irregular. No extra sounds. Abdomen: Soft, nontender. Bowel sounds positive. No organomegaly. No masses or hernia. No rigidi ty or rebound. Extremities: No edema, clubbing, or cyanosis. Intact pulses. Skin: No rash. Neurologic: Alert, awake, oriented x3. No acute focal deficits appreciated. Investigation: Labs were reviewed. Assessment And Recommendation: 1.Severe systolic heart failure. I recommend to start low-dose Entresto and continue with Coreg and will adjust the doses based on the blood pressure response. We will start the patient on Entresto t kristina and evaluate his blood pressure. 2.Elevated troponin with severely depressed LV function. Plan for coronary angiogram tomorrow. 3.Positive COVID, however, no signs of active pneumonia. We will monitor. SR/MODL Voice ID: [id number] Report ID: [id number]
[2022-02-18 05:05] LABS: Hematocrit 49.3 % (39.6-49.0); Lymphocytes % 11.7 % (15.3-44.8); MCV 100.3 fL (80-100); MPV 10.7 fL (7.6-11.3); RBC Red Blood Cell Count 4.91 M/uL (4.33-5.43)
[2022-02-18 05:18] LABS: Magnesium 1.8 mg/dL (1.8-2.4); Potassium 3.9 mmol/L (3.5-5.1)
[2022-02-18] MEDS: carvediloL 3.125 MG TAB PO SCH ×3 (06:00→17:42)
[2022-02-18] MEDS ORDERED: HEPA 1000U/500MLS 1,000 UNIT/500 ML BAG IV ONE ×3 (06:27→12:54)
[2022-02-18] MEDS ORDERED: LIDOCAINE 1% 20 ML MDV ONE (06:27)
[2022-02-18] MEDS: ASPIRIN 81 MG CHEWABLE TABLET PO SCH (06:50)
[2022-02-18] MEDS: SACUBITRIL/VALSARTAN 24/26 MG TAB PO SCH ×2 (06:50→21:41)
[2022-02-18] MEDS ORDERED: NA CHLORIDE 0.9% 250 ML ONE (08:37)
[2022-02-18] MEDS: FUROSEMIDE 40 MG TABLET PO SCH (08:58)
[2022-02-18] MEDS: ROSUVASTATIN 10 MG TAB PO SCH (08:59)
[2022-02-18] MEDS ORDERED: KCL 20 MEQ/100 mL IVPB 20 MEQ/100 ML BAG IV SCH (09:00)
[2022-02-18] MEDS ORDERED: CLOPIDOGREL 75 MG TABLET ONE (09:52)
[2022-02-18] MEDS ORDERED: ATROPINE SULF 1 MG/10 ML SYR IV ONE (09:52)
[2022-02-18] MEDS ORDERED: ASPIRIN 325 MG TAB ONE (09:52)
[2022-02-18] MEDS ORDERED: TICAGRELOR 90 MG TABLET PO ONE (09:52)
[2022-02-18] MEDS ORDERED: MAGNESIUM SULFATE 1 gm IVPB 1 GM/100 ML BAG IV ONE (11:00)
[2022-02-18 12:14] LABS: Hematocrit 52.9 % (39.6-49.0); Lymphocytes % 11.8 % (15.3-44.8); MCV 98.8 fL (80-100); MPV 12.5 fL (7.6-11.3); RBC Red Blood Cell Count 5.35 M/uL (4.33-5.43)
[2022-02-18] MEDS ORDERED: NA CHLORIDE 0.9% 500 ML ONE (12:36)
[2022-02-18] MEDS ORDERED: MIDAZOLAM HCL 2 MG/2 ML INJ ONE (12:42)
[2022-02-18] MEDS ORDERED: FENTANYL CITR 100 MCG/2 ML ONE (12:42)
[2022-02-18] MEDS ORDERED: METOPROLOL TARTRATE 5 MG/5 ML INJ IV ONE (13:04)
--- NOTE | 2022-02-18 18:13 | P.PN ---
Subjective Date of Service: 02/18/22 Chief Complaint: CHF, Elevated Troponin Patient has no complaint today and wants to go home. His inguinal and suprapubic skin rash continue to improve. Physical Examination - Vital Signs Temperature: 97.6 F Blood Pressure: 82/61 Pulse: 107 Respirations: 20 Pulse Ox (%): 98 Assessment And Plan - Current Problems (Diagnosis) (1) Chronic systolic heart failure Current Visit: Yes Status: Acute (2) Elevated troponin Current Visit: Yes Status: Acute (3) Rash and nonspecific skin eruption Current Visit: Yes Status: Acute (4) COPD (chronic obstructive pulmonary disease) Current Visit: Yes Status: Chronic Qualifiers: COPD type: unspecified COPD Qualified Code(s): J44.9 - Chronic obstructive pulmonary disease, unspecified (5) Sinus tachycardia Current Visit: Yes Status: Chronic (6) Pleural effusion Current Visit: No Status: Acute - Plan Physical Exam General: Alert, In no apparent distress Neck: Supple, No LAD, Without JVD. Respiratory: Clear to auscultation bilaterally, Normal air movement Cardiovascular: Edema, Irregular heart rate/rhythm Gastrointestinal: Normal bowel sounds, No tenderness Integumentary: Rash-inguinal, suprapubic area, bilateral gluteal and posterior aspect of right upper thigh is improving Neurological: Normal speech, Normal strength at 5/5 x4 extr, Normal affect. Plan: Patient appears to be compensated for CHF. Continue maintenance Lasix, Entresto. Status post cardiac catheterization today. Patient has normal coronary arteries per Dr. Espinal. Change Coreg to metoprolol XL to control his heart rate per Dr. Espinal recommendation. Patient's systolic blood pressure is running low in the high 80s to 90s and will avoid beta-blockers for now. Midodrine as needed for hypotension LV dysfunction likely alcohol related. Continue hydrocortisone cream for contact dermatitis. Bronchodilators as needed for COPD. Possible discharge in a.m.
[2022-02-18] MEDS: MIDODRINE HCL 5 MG TABLET PO SCH (21:41)
[2022-02-18] MEDS ORDERED: NA CHLORIDE 0.9% 250 ML IV ONE (22:30)
--- NOTE | 2022-02-18 23:10 | PN ---
Date of Progress Note: 02/18/2022 Subjective: Seen at bedside. His breathing is significantly better. He does not have any shortness of breath, orthopnea, cough, nausea, vomiting, or diarrhea. All other systems reviewed and are nega tive. Status post coronary angiogram with clean coronaries. Objective: Vital Signs: Temperature is 97.5, heart rate 104, breathing at 16, blood pressure is 103 /75, saturating 99%. General: A pleasant middle-aged male, in no apparent distress. Head And Neck: Pupils are equal and reactive to light. Intact eye movements. No JVD. No cervical lymphadenopathy. Neck: Supple. Thyroid is not enlarged. Lungs: Clear to auscultation bilaterally. No rhonchi, rales, or crackles. No accessory muscle use. Heart: Regular rate and rhythm. No extra sounds. Abdomen: Soft, nontender. Bowel sounds positive. No organomegaly. No masses or hernia. No rigidi ty or rebound. Extremities: No edema, clubbing, or cyanosis. Intact pulses. Skin: No rash. Neurologic: Alert, awake, and oriented x3. No acute focal deficits appreciated. Lymph Nodes: No cervical or axillary lymphadenopathy. Investigations: Labs reviewed. Assessment And Recommendations: 1.Severe systolic heart failure, ejection fraction less than 20%. Coronary angiogram was done today and has normal coronary arteries and he appears to be euvolemic. His LVEDP was within normal range. Recommendations will be to discontinue the Coreg and start Toprol-XL 25 mg daily and adjust further as needed. His heart rate is very high and need to control the heart rate and if blood pressure vincent erates that, then the next step will be to increase the Entresto. 2.Elevated troponin. This is demand ischemia. Coronary angiogram was done today and was totally no rmal. SR/MODL Voice ID: [id number] Report ID: [id number]
--- NOTE | 2022-02-19 00:22 | OP ---
Date of Procedure: 02/18/2022 Surgeon: SUSSY MINA Procedures Performed: 1.Selective coronary angiogram. 2.Left heart catheterization. Indications: 1.Severe systolic heart failure with ejection fractions less than 20%. 2.Elevated troponin. Access: Right femoral artery 6-English closed with StarClose. Complications: None. Estimated Blood Loss: Bleeding less than 10 mL. Anesthesia: Total sedation time was 25 minutes, used fentanyl and Versed. Description Of Procedure: After risks, benefits, and alternatives were explained, the patient agreed to the procedure and signed informed consent. The patient was brought into the cardiac catheterizat ion laboratory and prepped and draped in sterile fashion. Then we accessed right femoral artery usin g micropuncture kit, fluoroscopy ultrasound guidance and placed 6-English [place] sheath. I then too k 6-English JL4 catheter in the aortic root, engaged left main, took standard views and exchanged for a 6-English JR4 catheter and engaged the RCA and took standard views and then catheter was pushed acro ss aortic valve into the LV, measured LVEDP and then pullback did not record any gradient. Then, we removed the catheter and the sheath and StarClose was used with good hemostasis. Findings: 1.Left main: Large and normal. 2.LAD: Large vessel, normal. Normal diagonal branches. 3.Left circumflex: Small, nondominant and normal. 4.RCA: Very large and dominant and normal. 5.LVEDP borderline at 12 mmHg. Conclusion: 1.Normal coronary arteries and this is nonischemic cardiomyopathy. 2.Borderline LVEDP at 12 mmHg. Recommendations: To use guideline directed medical therapy for a systolic heart failure including En tresto and beta-austin and follow medically. SR/MODL Voice ID: [id number] Report ID: [id number]
[2022-02-19] MEDS: carvediloL 3.125 MG TAB PO SCH (06:00)
[2022-02-19 06:33] LABS: Absolute Lymphocytes (CBC) 1.5 K/uL (0.7-4.9); Hematocrit 46.3 % (39.6-49.0); Lymphocytes % 10.3 % (15.3-44.8); MCV 98.1 fL (80-100); MPV 11.6 fL (7.6-11.3); RBC Red Blood Cell Count 4.72 M/uL (4.33-5.43)
[2022-02-19 06:50] LABS: Magnesium 1.8 mg/dL (1.8-2.4); Potassium 3.7 mmol/L (3.5-5.1)
[2022-02-19] MEDS: ROSUVASTATIN 10 MG TAB PO SCH (08:42)
[2022-02-19] MEDS: MIDODRINE HCL 5 MG TABLET PO SCH (08:42)
[2022-02-19] MEDS: ASPIRIN 81 MG CHEWABLE TABLET PO SCH (08:42)
[2022-02-19] MEDS: FUROSEMIDE 40 MG TABLET PO SCH (08:42)
[2022-02-19] MEDS: SACUBITRIL/VALSARTAN 24/26 MG TAB PO SCH ×2 (08:42→20:15)
[2022-02-19] MEDS ORDERED: POTASSIUM CL SA 10 MEQ TAB PO ONE (08:45)
[2022-02-19] MEDS ORDERED: MAGNESIUM SULFATE 1 gm IVPB 1 GM/100 ML BAG IV ONE (08:45)
[2022-02-19] MEDS ORDERED: METOPROLOL XL 25 MG TAB PO SCH (11:00)
[2022-02-19 11:45] VITALS: O2SAT 98
--- NOTE | 2022-02-19 11:58 | P.DS ---
Admission Date: 02/16/22 Discharge Date: 02/20/22 Disposition: ROUTINE DISCHARGE Discharge Condition: FAIR Reason for Admission: CHF, Elevated Troponin - Problems (1) Chronic systolic heart failure Status: Acute (2) Elevated troponin Status: Acute (3) Rash and nonspecific skin eruption Status: Acute (4) COPD (chronic obstructive pulmonary disease) Status: Chronic Qualifiers: COPD type: unspecified COPD Qualified Code(s): J44.9 - Chronic obstructive pulmonary disease, unspecified (5) Sinus tachycardia Status: Chronic (6) Pleural effusion Status: Acute (7) COVID-19 virus infection Status: Acute Brief History of Present Illness: Patient is a 61-year-old male with COPD, hypertension, alcohol abuse, and systolic CHF (EF 15-20%) who presented to the ED with complaints of lower abdominal circumferential pruritic rash and pedal edema. He states he first noticed the rash about 2 days prior. Patient was discharged from this facility 1 week prior after new diagnosis of CHF and treatment of COPD exacerbation. He was discharged with entresto, coreg, bronchodilators, lasix, and prednisone. He states he has been taking his medications as prescribed. His labs today are significant for WBC 14.5, K 3.3, trop HS 124, BNP 2500, procal 0.33, lactic acid 1.8. Patient was afebrile and tachycardic (although he is chronically tachycardic). He also got slightly hypotensive in the ED. He received 1/2 fluid and was started on vanc and cefepime for suspected cellulitus. He denied chest pain. He was admitted for further management. Hospital Course: Patient admitted to the medical floor and treated with hydrocortisone cream for contact dermatitis. He appeared compensated for CHF. His home medications for heart failure were continued as much as his BP will tolerate. His troponin was mildly elevated, patient was seen in consultation by cardiology Dr. Espinal who performed cardiac catheterization due to recently diagnosed CHF with EF of 15 to 20%. Cardiac cath did not show any coronary artery occlusion, Dr. Espinal recommended medical management, and specifically Toprol-XL to control his tachycardia. His blood pressure was soft occasionally hypotensive limiting use of beta-blockers and Entresto. He tested positive for COVID-19 but has been asymptomatic. Patient is clinically stable, he denies any symptoms, his lower abdomen rash has significantly improved. His intermittent hypotension is chronic. Patient is deemed stable for discharge. Vital Signs/Physical Exam: Temp Pulse Resp BP Pulse Ox 97.8 F 133 H 18 104/78 98 02/19/22 11:44 02/19/22 11:44 02/19/22 11:44 02/19/22 11:44 02/19/22 11:44 General: Alert, In no apparent distress, Oriented x3 HEENT: Mucous membr. moist/pink Neck: JVD not distended Respiratory: Clear to auscultation bilaterally, Normal air movement Cardiovascular: No edema, Normal S1 S2, Other (Tachycardia) Gastrointestinal: Soft and benign, Non-distended, No tenderness Musculoskeletal: No swelling Integumentary: Other (Scaly erythematous rash-groin and suprapubic area, bilateral gluteal and posterior right thigh.) Neurological: Normal strength at 5/5 x4 extr Lymphatics: No axilla or inguinal lymphadenopathy Laboratory Data at Discharge: WBC 14.30 K/uL (4.3-10.9) H D 02/19/22 05:54 Hgb 15.5 g/dL (13.6-17.9) 02/19/22 05:54 Hct 46.3 % (39.6-49.0) 02/19/22 05:54 Plt Count 89 K/uL (152-406) L 02/19/22 05:54 PT 13.1 SECONDS (9.5-12.5) H 02/15/22 22:25 INR 1.19 02/15/22 22:25 Sodium 137 mmol/L (136-145) 02/19/22 05:54 Potassium Cancelled 02/19/22 Unknown BUN 15 mg/dL (7-18) 02/19/22 05:54 Creatinine 0.72 mg/dL (0.55-1.3) 02/19/22 05:54 Glucose 104 mg/dL (74-106) 02/19/22 05:54 Magnesium 1.8 mg/dL (1.8-2.4) 02/19/22 05:54 Home Medications: Aspirin Chewable [Aspirin Chewable*] 81 mg PO DAILY 02/05/22 Rosuvastatin [Crestor*] 10 mg PO DAILY 02/05/22 Albuterol Neb [Proventil 0.083% Neb Soln] 2.5 mg NEB [id number] PRN #120 amp 02/07/22 Furosemide [Lasix*] 40 mg PO DAILY #30 tab 02/07/22 Ipratropium Neb [Atrovent*] 0.5 mg NEB [id number] #120 amp 02/07/22 Sacubitril/Valsartan [Entresto 24 mg-26 mg Tablet] 1 tab PO BID #60 tab 02/07/22 Aspirin Chewable [Aspirin Chewable*] See Rx Instructions .ROUTE .COMPLEX 02/16/22 Digoxin [Lanoxin*] 0.25 mg PO DAILY #30 tab 02/19/22 Hydrocortisone Cream [Hydrocortisone 1% Cream*] 1 appl TOP TID #1 tube 02/19/22 Metoprolol Succinate [Toprol Xl*] 25 mg PO [id number] #30 tab 02/19/22 New Medications: Hydrocortisone Cream [Hydrocortisone 1% Cream*] 1 appl TOP TID #1 tube Digoxin [Lanoxin*] 0.25 mg PO DAILY #30 tab Metoprolol Succinate [Toprol Xl*] 25 mg PO [id number] #30 tab Diet: AHA Activity: Ad mark Followup: NONE,NONE [Primary Care Provider] - 1-2 Weeks Remi Espinal MD [ACTIVE - CAN ADMIT] - (2-4 weeks) Time spent managing pt's care (in minutes): 37
[2022-02-19] MEDS ORDERED: DIGOXIN 0.25 MG/ML AMP IV ONE (16:32)
[2022-02-19] MEDS ORDERED: METOPROLOL TARTRATE 5 MG/5 ML INJ IV STA (17:45)
[2022-02-19 20:02] VITALS: BP 127/85; TEMP 98
--- NOTE | 2022-02-22 15:44 | EKG ---
Test Date: 2022-02-19 Test Time: 03:00:13 Labeling Machine Operator: RT-O MEASUREMENT RESULTS: Intervals: Rate: 102 DC: 158 QRSD: 100 QT: 360 QTc: 469 [place]: P: 25 DC: 158 QRS: 9 T: 154 INTERPRETIVE STATEMENTS: Sinus tachycardia with premature atrial complexes Anterior infarct, age undetermined Abnormal ECG Compared to ECG 02/18/2022 21:30:28 Atrial premature complex(es) now present Myocardial infarct finding still present Electronically Signed On 02-22-22 15:41:20 CDT by Remi Espinal
--- NOTE | 2022-02-22 15:44 | EKG ---
Test Date: 2022-02-18 Test Time: 21:30:28 Leather Lacer: RT-O MEASUREMENT RESULTS: Intervals: Rate: 138 [place]: 160 QRSD: 96 QT: 270 QTc: 409 [place]: P: 10 [place]: 160 QRS: -11 T: 93 INTERPRETIVE STATEMENTS: Sinus tachycardia Possible Left atrial enlargement Anterior infarct, age undetermined Abnormal ECG Compared to ECG 02/15/2022 22:40:21 Myocardial infarct finding now present Sinus rhythm no longer present T-wave abnormality no longer present Possible ischemia no longer present Prolonged QT interval no longer present Electronically Signed On 02-22-22 15:41:27 CDT by Remi Espinal
== END 2022-02-19 20:20 | disposition home or self-care (01) | DRG 286 ==
LOC: ER 21:53 → ERHOLD 02-16 03:44 → 2ND 02-16 20:18
PROVIDERS: ADMIT Internal Medicine; ATTEND Internal Medicine
PROC: 4A023N7 Measurement of Cardiac Sampling and Pressure, Left Heart, Percutaneous Approach (ICD-10-PCS; principal; 2022-02-18)
PROC: B2111ZZ Fluoroscopy of Multiple Coronary Arteries using Low Osmolar Contrast (ICD-10-PCS; 2022-02-18)
DX: I11.0 Hypertensive heart disease with heart failure (principal); U07.1 COVID-19; I50.23 Acute on chronic systolic (congestive) heart failure; L03.311 Cellulitis of abdominal wall; J44.9 Chronic obstructive pulmonary disease, unspecified; I95.9 Hypotension, unspecified; L30.9 Dermatitis, unspecified; I42.8 Other cardiomyopathies; F10.10 Alcohol abuse, uncomplicated; R77.8 Other specified abnormalities of plasma proteins; R00.0 Tachycardia, unspecified; R21 Rash and other nonspecific skin eruption; Z79.82 Long term (current) use of aspirin; Z79.52 Long term (current) use of systemic steroids; Z87.891 Personal history of nicotine dependence; Z79.899 Other long term (current) drug therapy
CPT/HCPCS: 36415; 71045; 71275; 74177; 80048; 81003; 81015; 82550; 82553; 83605; 83735; 83880; 84145; 84484; 85025; 85610; 87040; 87811; 93005; 93458; 93970; 94760; 96372; 99285; C1893; J0692; J1160; J1644; J1650; J2250; J3010; J3370; J3475; J3480; J7040; J7050; Q9966; Q9967

== ENCOUNTER 2024-07-09 07:00 | Day surgery (SDC) | payer MEDICAID, OTHER ==
[2024-07-04 15:57] LABS: Absolute Basophils 0.3 K/uL (0-0.5); Absolute Eosinophils 0.2 K/uL (0-0.5); Absolute Lymphocytes (CBC) 2.4 K/uL (0.7-4.9); Absolute Neutrophil 5.7 K/uL (1.8-8.0); Basophils % 2.7 % (0-1.3); Eosinophils % 1.6 % (0-4.4); Hematocrit 43.5 % (39.6-49.0); Hemoglobin 14.8 g/dL (13.6-17.9); Lymphocytes % 25.2 % (15.3-44.8); MCH 34.7 pg (27.0-35.0); MPV 11.4 fL (7.6-11.3); Monocytes % 10.8 % (3.3-12.3); Neutrophils % 59.7 % (41.7-73.7); Nucleated Red Blood Cells % 0.1 % (0-0); Platelets 168 thou/uL (152-406); RBC Red Blood Cell Count 4.26 M/uL (4.33-5.43); Red Cell Distribution Width 13.6 % (12.1-15.2)
[2024-07-04 16:03] LABS: Anion Gap 8.4 mEq/L (5.0-15.0); Potassium 3.4 mEq/L (3.5-5.1)
[2024-07-04 16:04] LABS: PTT, Activated Partial Thromb 30.9 SECONDS (24.3-36.9); Protime INR 0.95
--- NOTE | 2024-07-05 15:07 | EKG ---
Test Date: 2024-07-04 Test Time: 16:17:18 [facility]: LEILANI MEASUREMENT RESULTS: Intervals: Rate: 91 [place]: 166 QRSD: 98 QT: 396 QTc: 487 [place]: P: 21 [place]: 166 QRS: 74 T: 81 INTERPRETIVE STATEMENTS: Normal sinus rhythm Nonspecific ST and T wave abnormality Prolonged QT Abnormal ECG Compared to ECG 12/08/2023 20:28:51 ST (T wave) deviation now present Prolonged QT interval now present Sinus tachycardia no longer present Left ventricular hypertrophy no longer present Electronically Signed On 07-05-24 15:05:51 MCAT INSTRUCTOR by Remi Espinal
[2024-07-09] MEDS ORDERED: NA CHLORIDE 0.9% 500 ML ONE (07:05)
[2024-07-09] MEDS ORDERED: HEPA 1000U/500MLS 2,000 UNIT/1,000 ML BAG IV ONE (07:28)
[2024-07-09] MEDS ORDERED: LIDOCAINE 1% 20 ML MDV ONE (07:29)
[2024-07-09] MEDS ORDERED: MIDAZOLAM HCL 2 MG/2 ML INJ ONE (07:30)
[2024-07-09] MEDS ORDERED: FENTANYL CITR 100 MCG/2 ML ONE (07:31)
[2024-07-09 09:08] VITALS: TEMP 98
[2024-07-09 10:26] VITALS: O2SAT 95
[2024-07-09 11:55] VITALS: BP 155/70
--- NOTE | 2024-07-09 21:08 | OP ---
Date of Procedure: 07/09/2024 Surgeon: Justino Arrieta Procedure Performed: Bilateral carotid angiogram. Indication For Procedure: Abnormal carotid duplex. Complications: None. Estimated Blood Loss: Less than 50 cc. Access: Right common femoral artery, closed by Mynx. Sedation Time: 20 minutes with 1 of Versed and 25 fentanyl. Description Of Procedure: After risks, benefits, and alternatives were explained to the patient, the patient agreed to proceed with procedure and signed informed consent. The patient was brought back to the label machine operator, prepped and draped in sterile fashion. Time-out was performed. Sedation was admini stered. Next, right common femoral artery, ultrasound-guided micropuncture technique, access was obt ained. Alexandra 1 catheter was advanced to the aortic root. Selective angiogram of the right and left c ommon carotid arteries was done. At the end of procedure, catheter was removed over a J-wire. Sheat h was removed. Mynx was applied. Hemostasis was achieved. The patient was moved back to recovery i n stable condition. Findings: 1.Right internal carotid artery: Proximal calcified 40% to 50% disease, then mild luminal irregular ities. 2.Right external carotid artery: Proximal 80% disease, then mild luminal irregularities. 3.Left internal carotid artery: Proximal calcified 20% disease, then mild luminal irregularities. 4.Left external carotid artery: Patent. Assessment And Plan: 1.Moderate right internal carotid artery disease. 2.Mild left internal carotid artery disease. Plan will be to continue medical management. HEATH/LIAN Voice ID: [id number] Report ID: [id number]
== END 2024-07-09 10:55 | disposition home or self-care (01) ==
LOC: CCL 07:00
PROVIDERS: ATTEND Internal Medicine Interventional Cardiology
DX: I65.23 Occlusion and stenosis of bilateral carotid arteries (principal); I73.9 Peripheral vascular disease, unspecified; I11.0 Hypertensive heart disease with heart failure; I50.9 Heart failure, unspecified; J44.9 Chronic obstructive pulmonary disease, unspecified; F17.210 Nicotine dependence, cigarettes, uncomplicated; Z79.82 Long term (current) use of aspirin; Z79.899 Other long term (current) drug therapy
CPT/HCPCS: 36222; 36415; 76937; 80048; 85025; 85610; 85730; 93005; 99152; 99153; C1760; C1893; J2003; J2250; J3010; J7040; Q9966

== ENCOUNTER 2024-10-06 17:04 | Emergency (ER) | payer OTHER ==
--- OUTSIDE RECORDS SUMMARY | 2024-10-06 17:10 | XMS REPORT | Continuity of Care Document ---
Author Name Unknown Address [address] [facility] [place] [address] [facility] Address [address] [facility] [place] [address] Care Team Providers Care Nutrition Services Assistant Name Role Phone Domonique MORALES, Baljeet Wei Primary Care Physician Jorge Luis Gutierrez Attending Clinician Unavailable KILEY FULLER Attending Clinician Unavailable VIKKI MALONEY Attending Clinician Unavailable TIM JONES Attending Clinician Unavailable Dirk BOWEN, Kirsten Murphy Attending Clinician [phone] BELIA BATISTA Attending Clinician Unavailable Sanjuana Pitts Attending Clinician [phone] Ranjana Velasquez Attending Clinician [phone] Belia Batista MD Attending Clinician [phone] RANJANA CADE Attending Clinician Unavailable RANJANA CADE Attending Clinician Unavailable Remi Espinal Attending Clinician Unavailable NGA HERNANDEZ Attending Clinician Unavailable YAMILET SINGLETARY Attending Clinician Unavailab le LAB90 Attending Clinician Unavailable Lyudmila MORALES, Nga Attending Clinician [phone] Juancarlos MORALES, Sendil K.H. Attending Clinician + [phone] JUANCARLOS SENDIL K.H. Attending Clinician Unavailyuki Ley MD, Jorje Miller Attending Clinician + Belia Batista MD Attending Clinician [phone] Eula Leal Attending Clinician Unavailable BELIA BATISTA Admitting Clinician Unavailable Lester MORALES, Belia Admitting Clinician [phone] RANJANA CADE Admitting Clinician Unavailable Physician, No Primary or Family Admitting Clinic donna Unavailable JUANCARLOS, SENDIL K.H. Admitting Clinician UnavailBelia Masterson MD Admitting Clinician [phone] Eula Leal Admitting Clinician Unavailable Payers Payer Name Policy Type Policy Number Effective Date Expirati on Date Source [facility] CATHLEEN SANDERSON COPAY FOCUS 9 [id number] 2024 00:00:00 [employer] HMO [id number] 2022 00:00:00 2023 00:00:00 Blue Cross Blue Shield HMO 6 [id number] 2022 00:00:00 [facility] Ambetter from [facility] [id number] [facility] Ambetter from [facility] [id number] [facility] Ambetter from [facility] [id number] [facility]etter [facility] [id number] [facility]etter from [facility] [id number] [facility] Ambetter from [facility] [id number] [facility] Ambetter from [facility] [id number] 2020 00:00:00 [facility] Blue [facility] C1 [id number] [facility] Problems Condition Name Condition Details Condition Category Status Onset Date Resolution Date Last Treatment Date Treating Clinician Comments Source Pulmonary fibrosis, unspecifie d (multi HCC) Pulmonary fibrosis, unspecifie d (multi HCC) Disease Active 2-10 00:00: 00 Judith Bowen - Externa emanuel COPD with acute exacerbati on COPD with acute exacerbati on Disease Active 2-04 00:00: 00 [facility] Prediabete s Prediabete s Disease Active 01-25 00:00: 00 Judith Bowen - Externa emanuel Well adult exam Well adult exam Disease Active 01-25 00:00: 00 Judith Bowen - Externa l Immunodefi ciency due to conditions classified elsewhere ([facility]) Immunodefi ciency due to conditions classified elsewhere ([facility]) Disease Active 01-25 00:00: 00 Judith Bowen - Externa l Absent pedal pulses Absent pedal pulses Disease Active 02-28 00:00: 00 [facility] Has been smoking tobacco for 30 years or more Has been smoking tobacco for 30 years or more Disease Active 02-28 00:00: 00 [facility] Coronary artery calcificat ion seen on CT scan Coronary artery calcificat ion seen on CT scan Disease Active 02-28 00:00: 00 [facility] Abnormal EKG Abnormal EKG Disease Active 02-28 00:00: 00 [facility] 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 Disease Active 02-05 00:00: 00 [facility] Dyslipidem ia Dyslipidem ia Disease Active 02-05 00:00: 00 [facility] Essential hypertensi on Essential hypertensi on Disease Active 02-05 00:00: 00 [facility] Chest pain, unspecifie d type Chest pain, unspecifie d type Disease Active 02-03 00:00: 00 [facility] Precordial pain Precordial pain Disease Active 02-03 00:00: 00 [facility] Atypical chest pain Atypical chest pain Disease Active 02-03 00:00: 00 [facility] HTN (hypertens ion) HTN (hypertens ion) Disease Active Judith Seybold - Externa l COPD (chronic obstructiv e pulmonary disease) (multi HCC) COPD (chronic obstructiv e pulmonary disease) (multi HCC) Disease Active Judith Seybold - Externa l Congestive heart failure, NYHA class 3, chronic, systolic (multi HCC) Congestive heart failure, NYHA class 3, chronic, systolic (multi HCC) Disease Active Judith Seybold - Externa l Tobacco abuse Tobacco abuse Disease Active Judith Seybold - Externa l Positive colorectal cancer screening using Cologuard test Positive colorectal cancer screening using Cologuard test Disease Active Judith Seybold - Externa l Alcohol abuse Alcohol abuse Disease Active Judith Seybold - Externa l Hyperlipid emia Hyperlipid emia Disease Active Judith Seybold - Externa l [id number] Primary insomnia Problem [facility] [id number] Congestive heart failure, unspecifie d HF chronicity , unspecifie d heart failure type Problem [facility] [id number] Leukocytos is, unspecifie d type Problem Active [facility] [id number] Mixed hyperlipid emia Problem Active [facility] [id number] Tobacco use disorder, continuous Problem Active [facility] [id number] Current moderate episode of major depressive disorder without prior episode Problem Active [facility] FH: hypertensi on FH: hypertensi on Disease Resolve d 02-05 00:00: 00 2023-02-05 00:00:00 2023-02-05 18:08:44 [facility] Allergies, Adverse Reactions, Alerts Allergy Name Allergy Type Status Severity Reaction(s) Onset Date Inactive Date Treating Clinician Comments Source No Known Allergie s DA Active U 2023-06 00:00: 00 [facility] NO KNOWN ALLERGIE S Drug Class Active [facility] Social History Social Habit Start Date Stop Date Quantity Comments Source Sexual orientation Sanjuana Bowen - External History of Occupation Judith Bowen - External History of tobacco use Chews Tobacco Judith Bowen - External Gender identity [facility] Alcoholic beverage intake 2024-07-22 00:00:00 2024-07-22 00:00:00 6.86 /d Judith Bowen - External Cigarettes smoked current (pack per day) - Reported 2024-01-26 00:00:00 2024-01-26 00:00:00 Judith Bowen - External Cigarette pack-years 2024-01-26 00:00:00 2024-01-26 00:00:00 Judith Bowen - External Tobacco use and exposure 2024-01-26 00:00:00 2024-01-26 00:00:00 User of smokeless tobacco Judith Bowen - External History of Social function 2024-01-12 00:00:00 2024-01-12 00:00:00 Judith Bowen - External Education 2024-01-12 00:00:00 2024-01-12 00:00:00 9 Judith Bowen - External Sex 2023-11-15 13:32:55 2023-11-15 13:32:55 Male (finding) Judith Bowen - External Sex assigned at 1960 00:00:00 1960 00:00:00 Judith Bowen - External Smoking Status Start Date Stop Date Source Smokes tobacco daily 2024-01-26 00:00:00 Judith Rogers Tobacco smoking consumption unknown [facility] Medications Ordered Medication Name Filled Medication Name Start Date Stop Date Current Medication? Ordering Clinician Indication Dosage Frequency Signature (SIG) Comments Components Source methocarbam ol 500 mg tablet 07-23 00:00: 00 Yes 1mg Clay Rosas prednisone 10 mg tablet 07-23 00:00: 00 Yes 1mg Clay Rosas Augmentin 500 mg-125 mg tablet 07-23 00:00: 00 Yes 1mg Clay Rosas Daliresp 500 mcg tablet 07-23 00:00: 00 Yes 1mcg Clay Rosas albuterol sulfate 1.25 mg/3 mL solution for nebulizatio n 07-23 00:00: 00 Yes 1mg/3 mL Clay Rosas Metoprolol Succinate 50 MG oral TABLET SR 24 HR 07-19 00:00: 00 Yes 50mg 1 tablet (50 mg total). Judith castellanos KCL (KLOR-CON M20) tablet 20 mEq 07-18 13:15: 00 07-18 12:27 :00 No 20meq 20 mEq, Oral, ONCE, 1 dose, On Mon07/18/24 at 0715, Routine [facility] Benzonatate 100 MG oral Capsule 07-18 00:00: 00 Yes 100mg [id number] 3D Take 1 capsule (100 mg total) by mouth 3 times daily as needed. Judith castellanos predniSONE 20 mg tablet 07-18 00:00: 00 07-21 05:59 :00 Yes [id number] 40mg Take 2 tablets by mouth in the morning for 2 days. [facility] azithromyci n (ZITHROMAX) tablet 500 mg 07-17 18:15: 00 07-18 17:45 :00 No 500mg 500 mg, Oral, Q24H ABX, 2 doses, First dose on Mon07/17/24 at 1215, Last dose on Arlyn 07/18/24 at 1215, Routine, Reason for Anti-Infec tive: Documented Infection, Documented Infection Site: Respirator y, Duration of Therapy: 7 days [facility] rosuvastati n (CRESTOR) tablet 10 mg 07-17 15:00: 00 07-18 18:53 :24 No 10mg 10 mg, Oral, DAILY, First dose on Mon07/17/24 at 0900, Until Discontinu ed [facility] furosemide (LASIX) tablet 40 mg 07-17 15:00: 00 07-18 18:53 :24 No 40mg 40 mg, Oral, DAILY, First dose on Mon07/17/24 at 0900, Until Discontinu ed, Routine [facility] methylPREDN ISolone sod succ (SOLU-MEDRO L (PF)) injection 40 mg 07-17 15:00: 00 07-18 18:53 :24 No 40mg 40 mg, Intravenou s, DAILY, 4 doses, First dose on Mon07/17/24 at 0900, Last dose on Mon07/20/24 at 0900, 1 mL [facility] enoxaparin (LOVENOX) injection 40 mg 07-17 15:00: 00 07-18 18:53 :23 No 40mg 40 mg, Subcutaneo us, DAILY, First dose on Mon07/17/24 at 0900, Until Discontinu ed, Routine [facility] sacubitriL- valsartan (ENTRESTO) 49-51 mg tablet 1 tablet 07-17 14:00: 00 07-18 18:53 :24 No 1{tbl} 1 tablet, Oral, BID, First dose on Mon07/17/24 at 0800, Until Discontinu ed, Routine [facility] metoprolol succinate XL (TOPROL XL) tablet 50 mg 07-17 14:00: 00 07-18 18:53 :24 No 50mg 50 mg, Oral, BID, First dose on Mon07/17/24 at 0800, Until Discontinu ed, Routine [facility] nicotine (NICODERM) 14 mg/24 hr patch 1 Patch 07-17 12:30: 00 07-18 18:53 :24 No 1{patch } 1 Patch, Topical, Administer over 24 Hours, Q24H, First dose on Mon07/17/24 at 0630, Until Discontinu ed, Routine [facility] ipratropium (ATROVENT) 0.02 % nebulizer solution 0.5 mg 07-17 12:09: 39 07-18 18:53 :24 No .5mg 0.5 mg, Inhalation , TIDPRN, Starting on Mon07/17/24 at 0609, Until Arlyn 07/18/24 at 1253, Routine, Wheezing, Shortness of Breath, Bronchospa sm, Chest tightness [facility] levalbutero l (XOPENEX) nebulizer solution 1.25 mg 07-17 12:09: 18 07-18 18:53 :24 No 1.25mg 1.25 mg, Inhalation , TIDPRN, Starting on Mon07/17/24 at 0609, Until Arlyn 07/18/24 at 1253, Routine, Wheezing, Shortness of Breath, Bronchospa sm, Chest tightness [facility] benzonatate (TESSALON PERLES) capsule 100 mg 07-17 11:28: 09 Yes 100mg 100 mg, Oral, Q8HPRN, Starting on Mon07/17/24 at 0528, Until Discontinu ed, Routine, Cough [facility] codeine-gua ifenesin (ROBITUSSIN AC) 10-100 mg/5 mL oral solution 5 mL 07-17 11:27: 54 07-18 18:53 :24 No 5mL 5 mL, Oral, Q4HPRN, Starting on Mon07/17/24 at 0527, Until Arlyn 07/18/24 at 1253, Routine, Cough [facility] methocarbam oL (ROBAXIN) tablet 500 mg 07-17 03:14: 38 07-18 18:53 :24 No 500mg [facility] ipratropium (ATROVENT) 0.02 % nebulizer solution 0.5 mg 2024-05 02:00: 00 07-18 18:53 :23 No .5mg 0.5 mg, Inhalation , Q4H, First dose on Mon07/16/24 at 1999, Until Discontinu ed, Routine [facility] levalbutero l (XOPENEX) nebulizer solution 0.63 mg 2024-0 05 02:00: 00 07-18 18:53 :23 No .63mg 0.63 mg, Inhalation , Q4H, First dose on Mon07/16/24 at 1999, Until Discontinu ed, Routine [facility] metoprolol tartrate (LOPRESSOR) tablet 50 mg 07-16 23:45: 00 07-17 03:14 :49 No 50mg 50 mg, Oral, BID, First dose (after last modificati on) on Mon07/16/24 at 1745, Until Discontinu ed, LEIGHANN [facility] metoprolol (LOPRESSOR) injection 5 mg 2024-07-16 23:17: 15 07-18 18:53 :24 No 5mg 5 mg, Slow IV Push, Q4HPRN, Starting on Mon07/16/24 at 1717, Until Mon07/18/24 at 1253, Routine, HR >110 [facility] iopamidol (ISOVUE 370-500 mL) injection 85 mL 07-16 21:00: 00 07-16 21:00 :00 No [id number] 85mL 85 mL, Intravenou s, ONCE, 1 dose, On Mon07/16/24 at 1500, Routine [facility] metoprolol (LOPRESSOR) injection 5 mg 2024-0 04 20:00: 00 07-16 19:59 :00 No 5mg 5 mg, Slow IV Push, ONCE, 1 dose, On Mon07/16/24 at 1400, LEIGHANN [facility] levalbutero l (XOPENEX) nebulizer solution 1.25 mg 2024-07-16 19:15: 00 07-16 18:23 :00 No 1.25mg 1.25 mg, Inhalation , ONCE, 1 dose, On Mon07/16/24 at 1315, Routine [facility] NaCl 0.9% (NS) bolus infusion 1,000 mL 07-16 19:15: 07-16 19:15 :00 No 1000mL at 999 mL/hr, 1,000 mL, IV Infusion, ONCE, 1 dose, On Mon07/16/24 at 1315, STAT [facility] magnesium sulfate in water 2 gram/50 mL (4 %) infusion 2 g 07-16 19:00: 00 07-16 19:15 :00 No 2g 2 g, IV Piggyback, Administer over 60 Minutes, ONCE, 1 dose, On Mon07/16/24 at 1300, Routine [facility] ipratropium (ATROVENT) 0.02 % nebulizer solution 0.5 mg 07-16 18:15: 07-16 18:23 :00 No .5mg 0.5 mg, Inhalation , ONCE, 1 dose, On Mon07/16/24 at 1215, LEIGHANN [facility] azithromyci n (ZITHROMAX) tablet 500 mg 07-16 18:00: 00 07-16 18:05 :00 No 500mg 500 mg, Oral, ONCE, 1 dose, On Mon07/16/24 at 1200, LEIGHANN, Reason for Anti-Infec tive: Documented Infection, Documented Infection Site: Respirator y, Duration of Therapy: Once (ED) [facility] cefTRIAXone (ROCEPHIN) 1,000 mg in water for injection, sterile 10 mL IV Push 07-16 18:00: 00 07-16 18:05 :00 No 1000mg 1,000 mg, Intravenou s, ONCE, 1 dose, On Mon07/16/24 at 1200, 10 mL, Reason for Anti-Infec tive: Documented Infection, Documented Infection Site: Respirator y, Duration of Therapy: Once (ED) [facility] NaCl 0.9% (NS) bolus infusion 1,000 mL 07-16 17:45: 00 07-16 18:05 :00 No 1000mL at 999 mL/hr, 1,000 mL, IV Infusion, ONCE, 1 dose, On Mon07/16/24 at 1145, STAT [facility] methylpredn isolone sod succ (SOLU-MEDRO L) injection 125 mg 07-16 17:45: 00 07-16 16:50 :00 No 125mg 125 mg, Slow IV Push, ONCE, 1 dose, On Mon07/16/24 at 1145, Routine [facility] levalbutero l (XOPENEX) nebulizer solution 1.25 mg 07-16 17:30: 00 07-16 16:45 :00 No 1.25mg 1.25 mg, Inhalation , ONCE, 1 dose, On Mon07/16/24 at 1130, Routine [facility] acetaminoph en (TYLENOL) tablet 1,000 mg 07-16 16:45: 00 07-16 16:50 :00 No 1000mg 1,000 mg, Oral, ONCE, 1 dose, On Mon07/16/24 at 1045, Routine [facility] ipratropium (ATROVENT) 0.02 % nebulizer solution 0.5 mg 07-16 16:45: 00 07-16 16:45 :00 No .5mg 0.5 mg, Inhalation , ONCE, 1 dose, On Mon07/16/24 at 1045, LEIGHANN [facility] Wixela Inhub 250-50 MCG/ACT inhalation AEROSOL POWDER, BREATH ACTIVATED 07-10 00:00: 00 Yes Judith castellanos aspirin 81 mg tablet,carlos yed release 07-09 00:00: 00 Yes 1mg Clay Rosas Chantix 0.5 mg tablet 07-09 00:00: 00 Yes 1mg Clay Rosas Rosuvastati n Calcium 10 MG oral Tablet 07-08 00:00: 00 Yes [id number] 10mg QD TAKE 1 TABLET(10 MG) BY MOUTH EVERY NIGHT Judith castellanos Metoprolol Succinate 25 MG oral TABLET SR 24 HR 07-08 00:00: 00 07-22 00:00 :00 No [id number] TAKE 1 TABLET BY MOUTH DAILY HOLD IF HR IS LESS THAN 60 OR BLOOD PRESSURE LESS THAN 100/60 Judith castellanos metoprolol succinate ER 25 mg tablet,exte nded release 24 hr 06-26 00:00: 00 Yes 1mg Clay Rosas ketorolac (TORADOL) injection 15 mg 2023-06 03:45: 00 06-08 03:56 :00 No 15mg 15 mg, Slow IV Push, ONCE, 1 dose, On Mon06/07/24 at 2145, LEIGHANN [facility] iopamidol (ISOVUE 370-500 mL) injection 115 mL 2023-06 02:30: 00 06-08 02:27 :00 No [id number] 115mL 115 mL, Intravenou s, ONCE, 1 dose, On Mon06/07/24 at 2030, Routine [facility] NaCl 0.9% (NS) IV infusion 1,000 mL 2023-06 02:30: 00 06-08 03:55 :00 No 1000mL at 999 mL/hr, Intravenou s, ONCE, 1 dose, On Mon06/07/24 at 2030, Routine [facility] Methocarbam ol 500 MG oral Tablet 2023-06 00:00: 00 Yes 500mg [id number] 3D Take 1 tablet (500 mg total) by mouth 3 times daily as needed. Judith castellanos dicyclomine 10 mg capsule 2023-06 00:00: 00 07-18 00:00 :00 No [id number] 10mg Take 1 capsule by mouth 3 (three) times daily as needed for Abdominal pain. [facility] Entresto 49-51 MG oral Tablet 2023-06 00:00: 00 Yes 1{tbl} Q.5D Take 1 tablet by mouth 2 times daily. Judith castellanos furosemide 20 mg tablet 2023-06- 00:00: 00 Yes mg Clay Rosas digoxin 250 mcg (0.25 mg) tablet 2023-06- 00:00: 00 Yes (0.25 mg) Clay Rosas Furosemide (LASIX) 20 MG oral Tablet 2023-06 1-04 00:00: 00 Yes [id number] TAKE 1 TABLET(20 MG) BY MOUTH DAILY NEEDED FOR SWELLING Judith castellanos Bevespi Aerosphere 9 mcg-4.8 mcg HFA aerosol inhaler 2023-06 0-15 00:00: 00 Yes mcg Clay Rosas Digoxin 250 MCG oral Tablet 2023-06 0- 00:00: 00 Yes [id number] TAKE 1 TABLET BY MOUTH DAILY, HOLD IF HR IS LESS THAN 60 Judith castellanos Potassium Chloride Nicky ER 20 MEQ oral Tab CR tablet 2023-06 0 00:00: 00 07-22 00:00 :00 No [id number] TAKE 1 TABLET BY MOUTH DAILY WITH LASIX ONLY Judith castellanos nicotine 21 mg/24 hr daily transdermal patch 03-01 00:00: 00 Yes mg/24 hr Clay Rosas albuterol sulfate HFA 90 mcg/actuati on aerosol inhaler 02-13 00:00: 00 Yes mcg/act uation Clay Rosas Fluticasone Furoate-Nirmal anterol (Breo Ellipta) 100-25 MCG/ACT inhalation AEROSOL POWDER, BREATH ACTIVATED - 00:00: 00 Yes [id number] 1{puff} QD Inhale 1 puff into the lungs daily. Judith castellanos potassium chloride ER 20 mEq tablet,exte nded release(par t/cryst) 8- 00:00: 00 Yes mEq Clay Rosas Albuterol HFA 108 (90 Base) MCG/ACT IN AERS 805 00:00: 00 Yes [id number] 2{puff} Q.25D Inhale 2 puffs into the lungs every 6 hours as needed for wheezing or shortness of breath. Judith castellanos Aspirin 81 MG oral Tablet Delayed Response 01-14 00:00: 00 Yes [id number] 81mg QD Take 1 tablet (81 mg total) by mouth daily. Judith castellanos Digoxin 250 MCG oral Tablet 01-14 00:00: 00 Yes [id number] 250ug QD Take 1 tablet (250 mcg total) by mouth daily HOLD if HR is less than 60. Judith castellanos Rosuvastati n Calcium (Crestor) 10 MG oral Tablet 01-14 00:00: 00 Yes [id number] 10mg QD Take 1 tablet (10 mg total) by mouth nightly. Judith castellanos Potassium Chloride Nicky ER (Klor-Con M20) 20 MEQ oral Tab CR tablet 01-14 00:00: 00 Yes [id number] 20meq QD Take 1 tablet (20 mEq total) by mouth daily Take with Lasix only. Judith castellanos Metoprolol Succinate 25 MG oral TABLET SR 24 HR 01-14 00:00: 00 Yes [id number] 25mg QD Take 1 tablet (25 mg total) by mouth daily HOLD medication if HR less than 60 or BP less than 100/60. Judith castellanos Furosemide (LASIX) 20 MG oral Tablet 01-14 00:00: 00 Yes [id number] 20mg QD Take 1 tablet (20 mg total) by mouth daily as needed (edema). Jduith castellanos aspirin 81 mg tablet,carlos yed release 01-14 00:00: 00 Yes mg Clay Rosas prednisone 10 mg tablet 01-14 00:00: 00 Yes mg Clay Kvng Rosas rosuvastati n 10 mg tablet 01-14 00:00: 00 Yes mg Clay Kvng Rosas Sacubitril- Valsartan (Entresto) 24-26 MG oral Tablet 01-14 00:00: 00 07-22 00:00 :00 No [id number] 1{tbl} QD Take 1 tablet by mouth daily. Judith castellanos Mometasone Furo-Formot isha Fum (Dulera) 100-5 MCG/ACT inhalation Aerosol 01-14 00:00: 00 01-25 00:00 :00 No [id number] 2{puff} Q.5D Inhale 2 puffs into the lungs 2 times daily. Judith castellanos predniSONE (DELTASONE) 10 MG oral tablet 01-11 00:00: 00 Yes [id number] 1 pill twice daily for 5 days then 1 pill once daily for 5 days. Judith castellanos Albuterol HFA 108 (90 Base) MCG/ACT IN AERS 01-11 00:00: 00 Yes [id number] 2{puff} Q.25D Inhale 2 puffs into the lungs every 6 hours as needed for wheezing or shortness of breath. Judith castellanos Mometasone Furo-Formot isha Fum (Dulera) 100-5 MCG/ACT inhalation Aerosol 01-11 00:00: 00 Yes [id number] 2{puff} Q.5D Inhale 2 puffs into the lungs 2 times daily. Judith castellanos Aspirin 81 MG oral Tablet Delayed Response 01-11 00:00: 00 Yes [id number] 81mg QD Take 1 tablet (81 mg total) by mouth daily. Judith castellanos Rosuvastati n Calcium (Crestor) 10 MG oral Tablet 01-11 00:00: 00 Yes [id number] 10mg QD Take 1 tablet (10 mg total) by mouth nightly. Judith castellanos Sacubitril- Valsartan (Entresto) 24-26 MG oral Tablet 01-11 00:00: 00 Yes [id number] 1{tbl} QD Take 1 tablet by mouth daily. Judith castellanos Metoprolol Succinate 25 MG oral TABLET SR 24 HR 01-11 00:00: 00 Yes [id number] 25mg QD Take 1 tablet (25 mg total) by mouth daily HOLD medication if HR less than 60 or BP less than 100/60. Judith castellanos Digoxin 250 MCG oral Tablet 01-11 00:00: 00 Yes [id number] 250ug QD Take 1 tablet (250 mcg total) by mouth daily HOLD if HR is less than 60. Judith castellanos Furosemide (LASIX) 20 MG oral Tablet 01-11 00:00: 00 Yes [id number] 20mg QD Take 1 tablet (20 mg total) by mouth daily as needed (edema). Judith castellanos Potassium Chloride Nicky ER (Klor-Con M20) 20 MEQ oral Tab CR tablet 01-11 00:00: 00 Yes [id number] 20meq QD Take 1 tablet (20 mEq total) by mouth daily Take with Lasix only. Judith castellanos predniSONE (DELTASONE) 20 MG oral tablet 12-09 00:00: 00 Yes 20mg 1 tablet (20 mg total). Judith castellanos Ipratropium (ATROVENT) 0.02 % inhalation Solution 12-09 00:00: 00 Yes 500ug 2.5 mL (500 mcg total). Judith castellanos Potassium Chloride Nicky ER 20 MEQ oral Tab CR tablet 12-09 00:00: 00 Yes 20meq 1 tablet (20 mEq total). Judith castellanos Triamcinolo ne Acetonide 0.1 % Triamcinolo ne Acetonide 0.1 % 08-10 00:00: 00 No 1{appli cation} BID Triamcinol one Acetonide 0.1 % Triamcinolo ne Acetonide 0.1 % Triamcinolo ne Acetonide 0.1 % 08-10 00:00: 00 No 1{appli cation} BID Triamcinol one Acetonide 0.1 % Triamcinolo ne Acetonide 0.1 % Triamcinolo ne Acetonide 0.1 % 08-10 00:00: 00 No 1{appli cation} BID Triamcinol one Acetonide 0.1 % sacubitriL- valsartan (ENTRESTO) 49-51 mg tablet 9 10:56: 24 Yes Take by mouth 2 (two) times daily. [facility] furosemide (LASIX) 40 mg tablet 02-28 10:56: 24 Yes 40mg Take 1 tablet by mouth in the morning. [facility] rosuvastati n 10 mg CpSP 02-28 10:56: 24 Yes Take by mouth. [facility] metoprolol succinate XL 50 mg 24 hr tablet 02-28 00:00: 00 Yes [id number] 50mg Take 1 tablet by mouth in the morning and 1 tablet in the evening. [facility] metoprolol succinate XL 50 mg 24 hr tablet 02-22 16:26: 18 02-22 00:00 :00 No 50mg Take 1 tablet by mouth in the morning. [facility] metoprolol succinate XL 50 mg 24 hr tablet 02-22 00:00: 00 02-28 00:00 :00 No [id number] 50mg Take 1 tablet by mouth in the morning. [facility] traZODone HCl 100 MG traZODone HCl 100 MG 2022-02-07 00:00: 00 No 1{table t_at_be dtime_a s_neede d} QD traZODone HCl 100 MG traZODone HCl 100 MG traZODone HCl 100 MG 02-07 00:00: 00 No 1{table t_at_be dtime_a s_neede d} QD traZODone HCl 100 MG traZODone HCl 100 MG traZODone HCl 100 MG 02-07 00:00: 00 No 1{table t_at_be dtime_a s_neede d} QD traZODone HCl 100 MG traZODone HCl 100 MG traZODone HCl 100 MG 2022-0 02-07 00:00: 00 No 1{table t_at_be dtime_a s_neede d} QD traZODone HCl 100 MG traZODone HCl 100 MG traZODone HCl 100 MG 2022-0 02-07 00:00: 00 No 1{table t_at_be dtime_a s_neede d} QD traZODone HCl 100 MG traZODone HCl 100 MG traZODone HCl 100 MG 02-07 00:00: 00 No 1{table t_at_be dtime_a s_neede d} QD traZODone HCl 100 MG traZODone HCl 100 MG traZODone HCl 100 MG 02-07 00:00: 00 No 1{table t_at_be dtime_a s_neede d} QD traZODone HCl 100 MG traZODone HCl 100 MG traZODone HCl 100 MG 02-07 00:00: 00 No 1{table t_at_be dtime_a s_neede d} QD traZODone HCl 100 MG metoprolol succinate XL (TOPROL XL) tablet 50 mg 02-04 14:00: 00 Yes 50mg 50 mg, Oral, DAILY, First dose on 02/04/23 at 0900, Until Discontinu ed, Routine [facility] aspirin chewable tablet 81 mg 02-04 14:00: 00 Yes 81mg 81 mg, Oral, DAILY, First dose on 02/04/23 at 0900, Until Discontinu ed, Routine [facility] enoxaparin (LOVENOX) injection 40 mg 02-04 14:00: 00 Yes 40mg 40 mg, Subcutaneo us, DAILY, First dose on 02/04/23 at 0900, Until Discontinu ed, Routine [facility] sacubitriL- valsartan (ENTRESTO) 49-51 mg tablet 02-04 13:33: 42 Yes Take by mouth 2 (two) times daily. [facility] metoprolol succinate XL 50 mg 24 hr tablet 02-04 13:33: 42 Yes 50mg Take 1 tablet by mouth in the morning. [facility] rosuvastati n 10 mg CpSP 02-04 13:33: 42 Yes Take by mouth. [facility] rosuvastati n (CRESTOR) tablet 10 mg 02-04 02:00: 00 Yes 10mg 10 mg, Oral, QHS, First dose on Mon02/03/23 at 2100, Until Discontinu ed [facility] nitroglycer in (NITROSTAT) sublingual tablet 0.4 mg 02-04 00:07: 44 Yes .4mg 0.4 mg, Sublingual , Q5MIN PRN, Starting on Mon02/03/23 at 1907, Until Discontinu ed, Routine, Chest pain [facility] ondansetron (ZOFRAN (PF)) injection 4 mg 02-04 00:07: 23 Yes 4mg 4 mg, Slow IV Push, Q6HPRN, Starting on Mon02/03/23 at 1907, Until Discontinu ed, Routine, Nausea and Vomiting (N/V) [facility] morpHINE (2 mg/mL) injection 4 mg 02-04 00:07: 14 02-05 00:06 :14 No 4mg 4 mg, Slow IV Push, Q4HPRN, Starting on Mon02/03/23 at 1907, Until 02/04/23 at 1906, Routine, Pain (scale 7-10) [facility] HYDROcodone -acetaminop hen (NORCO 5) 5-325 mg tablet 1 tablet 02-04 00:07: 12 02-06 00:06 :12 No 1{tbl} 1 tablet, Oral, Q6HPRN, Starting on Mon02/03/23 at 1907, Until Mon02/05/23 at 1906, Routine, Pain (scale 4-6) [facility] acetaminoph en (TYLENOL) tablet 650 mg 02-04 00:07: 01 Yes 650mg 650 mg, Oral, Q6HPRN, Starting on Mon02/03/23 at 1907, Until Discontinu ed, Routine, Pain (scale 1-3), Temp > 38 C [facility] metoprolol succinate XL 25 mg 24 hr tablet 02-04 00:00: 00 03-07 04:59 :00 No [id number] 25mg Take 1 tablet by mouth at bedtime for 30 days. [facility] iopamidol (ISOVUE 370-500 mL) injection 70 mL 02-03 22:00: 00 02-03 22:00 :00 No [id number] 70mL 70 mL, Intravenou s, ONCE, 1 dose, On Mon02/03/23 at 1700, Routine [facility] aspirin chewable tablet 324 mg 02-03 19:20: 00 02-03 19:22 :00 No 324mg 324 mg, Oral, ONCE, 1 dose, On Mon02/03/23 at 1430, STAT [facility] INHALE 2 PUFFS BY MOUTH EVERY 4-6 HOURS NEEDED FOR WHEEZING 02-23 00:00: 00 Yes Clay Rosas USE 1 VIAL WITH NEBULIZER EVERY 6 HOURS 02-23 00:00: 00 Yes Clay Rosas Escitalopra m Oxalate 10 MG Escitalopra m Oxalate 10 MG 2020-06 0 00:00: 00 No QD Escitalopr am Oxalate 10 MG Escitalopra m Oxalate 10 MG Escitalopra m Oxalate 10 MG 2020-06 0 00:00: 00 No QD Escitalopr am Oxalate 10 MG Losartan Potassium 50 MG Losartan Potassium 50 MG No 1{table t} QD Losartan Potassium 50 MG Zoloft 50 MG Zoloft 50 MG No QD Zoloft 50 MG Zoloft 50 MG Zoloft 50 MG No QD Zoloft 50 MG Losartan Potassium 50 MG Losartan Potassium 50 MG No 1{table t} QD Losartan Potassium 50 MG Losartan Potassium 100 MG Losartan Potassium 100 MG No 1{table t} QD Losartan Potassium 100 MG Escitalopra m Oxalate 20 MG Escitalopra m Oxalate 20 MG No 1{table t} QD Escitalopr am Oxalate 20 MG Ipratropium -Albuterol 0.5-2.5 (3) MG/3ML Ipratropium -Albuterol 0.5-2.5 (3) MG/3ML No 3{ml_as _needed } QID Ipratropiu m-Albutero l 0.5-2.5 (3) MG/3ML Metoprolol Succinate ER 50 MG Metoprolol Succinate ER 50 MG No 1{table t} BID Metoprolol Succinate ER 50 MG Aspirin 81 81 MG Aspirin 81 81 MG No 1{table t} QD Aspirin 81 81 MG Albuterol Sulfate (2.5 MG/3ML) 0.083% Albuterol Sulfate (2.5 MG/3ML) 0.083% No 3{ml_as _needed } QID Albuterol Sulfate (2.5 MG/3ML) 0.083% Ipratropium -Albuterol 0.5-2.5 (3) MG/3ML Ipratropium -Albuterol 0.5-2.5 (3) MG/3ML No 3{ml_as _needed } QID Ipratropiu m-Albutero l 0.5-2.5 (3) MG/3ML Metoprolol Succinate ER 50 MG Metoprolol Succinate ER 50 MG No 1{table t} BID Metoprolol Succinate ER 50 MG Aspirin 81 81 MG Aspirin 81 81 MG No 1{table t} QD Aspirin 81 81 MG Albuterol Sulfate (2.5 MG/3ML) 0.083% Albuterol Sulfate (2.5 MG/3ML) 0.083% No 3{ml_as _needed } QID Albuterol Sulfate (2.5 MG/3ML) 0.083% Ipratropium -Albuterol 0.5-2.5 (3) MG/3ML Ipratropium -Albuterol 0.5-2.5 (3) MG/3ML No 3{ml_as _needed } QID Ipratropiu m-Albutero l 0.5-2.5 (3) MG/3ML Metoprolol Succinate ER 50 MG Metoprolol Succinate ER 50 MG No 1{table t} BID Metoprolol Succinate ER 50 MG Furosemide 40 MG Furosemide 40 MG No Furosemide 40 MG Aspirin 81 81 MG Aspirin 81 81 MG No 1{table t} QD Aspirin 81 81 MG Albuterol Sulfate (2.5 MG/3ML) 0.083% Albuterol Sulfate (2.5 MG/3ML) 0.083% No 3{ml_as _needed } QID Albuterol Sulfate (2.5 MG/3ML) 0.083% Ipratropium -Albuterol 0.5-2.5 (3) MG/3ML Ipratropium -Albuterol 0.5-2.5 (3) MG/3ML No 3{ml_as _needed } QID Ipratropiu m-Albutero l 0.5-2.5 (3) MG/3ML Metoprolol Succinate ER 50 MG Metoprolol Succinate ER 50 MG No 1{table t} BID Metoprolol Succinate ER 50 MG Furosemide 40 MG Furosemide 40 MG No Furosemide 40 MG Aspirin 81 81 MG Aspirin 81 81 MG No 1{table t} QD Aspirin 81 81 MG Albuterol Sulfate (2.5 MG/3ML) 0.083% Albuterol Sulfate (2.5 MG/3ML) 0.083% No 3{ml_as _needed } QID Albuterol Sulfate (2.5 MG/3ML) 0.083% Ipratropium -Albuterol 0.5-2.5 (3) MG/3ML Ipratropium -Albuterol 0.5-2.5 (3) MG/3ML No 3{ml_as _needed } QID Ipratropiu m-Albutero l 0.5-2.5 (3) MG/3ML Metoprolol Succinate ER 50 MG Metoprolol Succinate ER 50 MG No 1{table t} BID Metoprolol Succinate ER 50 MG Furosemide 40 MG Furosemide 40 MG No Furosemide 40 MG Aspirin 81 81 MG Aspirin 81 81 MG No 1{table t} QD Aspirin 81 81 MG Albuterol Sulfate (2.5 MG/3ML) 0.083% Albuterol Sulfate (2.5 MG/3ML) 0.083% No 3{ml_as _needed } QID Albuterol Sulfate (2.5 MG/3ML) 0.083% Furosemide 40 MG Furosemide 40 MG No Furosemide 40 MG Rosuvastati n Calcium 10 MG Rosuvastati n Calcium 10 MG No 1{table t} QD Rosuvastat in Calcium 10 MG Ipratropium -Albuterol 0.5-2.5 (3) MG/3ML Ipratropium -Albuterol 0.5-2.5 (3) MG/3ML No 3{ml_as _needed } QID Ipratropiu m-Albutero l 0.5-2.5 (3) MG/3ML Albuterol Sulfate (2.5 MG/3ML) 0.083% Albuterol Sulfate (2.5 MG/3ML) 0.083% No 3{ml_as _needed } QID Albuterol Sulfate (2.5 MG/3ML) 0.083% Aspirin 81 81 MG Aspirin 81 81 MG No 1{table t} QD Aspirin 81 81 MG Metoprolol Succinate ER 50 MG Metoprolol Succinate ER 50 MG No 1{table t} BID Metoprolol Succinate ER 50 MG Furosemide 40 MG Furosemide 40 MG No Furosemide 40 MG Rosuvastati n Calcium 10 MG Rosuvastati n Calcium 10 MG No 1{table t} QD Rosuvastat in Calcium 10 MG Ipratropium -Albuterol 0.5-2.5 (3) MG/3ML Ipratropium -Albuterol 0.5-2.5 (3) MG/3ML No 3{ml_as _needed } QID Ipratropiu m-Albutero l 0.5-2.5 (3) MG/3ML Albuterol Sulfate (2.5 MG/3ML) 0.083% Albuterol Sulfate (2.5 MG/3ML) 0.083% No 3{ml_as _needed } QID Albuterol Sulfate (2.5 MG/3ML) 0.083% Aspirin 81 81 MG Aspirin 81 81 MG No 1{table t} QD Aspirin 81 81 MG Metoprolol Succinate ER 50 MG Metoprolol Succinate ER 50 MG No 1{table t} BID Metoprolol Succinate ER 50 MG Wellbutrin SR 150 MG Wellbutrin SR 150 MG No 1{table t_in_ yarelis_nissa ng} QD Wellbutrin SR 150 MG Rosuvastati n Calcium 10 MG Rosuvastati n Calcium 10 MG No 1{table t} QD Rosuvastat in Calcium 10 MG Aspirin 81 81 MG Aspirin 81 81 MG No 1{table t} QD Aspirin 81 81 MG Metoprolol Succinate ER 50 MG Metoprolol Succinate ER 50 MG No 1{table t} BID Metoprolol Succinate ER 50 MG Albuterol Sulfate (2.5 MG/3ML) 0.083% Albuterol Sulfate (2.5 MG/3ML) 0.083% No 3{ml_as _needed } QID Albuterol Sulfate (2.5 MG/3ML) 0.083% Furosemide 40 MG Furosemide 40 MG No 1{table t} QD Furosemide 40 MG Ipratropium -Albuterol 0.5-2.5 (3) MG/3ML Ipratropium -Albuterol 0.5-2.5 (3) MG/3ML No 3{ml_as _needed } QID Ipratropiu m-Albutero l 0.5-2.5 (3) MG/3ML Losartan Potassium-H CTZ 50-12.5 MG Losartan Potassium-H CTZ 50-12.5 MG No 1{table t} QD Losartan Potassium- HCTZ 50-12.5 MG Albuterol Sulfate (2.5 MG/3ML) 0.083% Albuterol Sulfate (2.5 MG/3ML) 0.083% No 3{ml_as _needed } QID Albuterol Sulfate (2.5 MG/3ML) 0.083% Furosemide 40 MG Furosemide 40 MG No 1{table t} QD Furosemide 40 MG Metoprolol Succinate ER 50 MG Metoprolol Succinate ER 50 MG No 1{table t} BID Metoprolol Succinate ER 50 MG Ipratropium -Albuterol 0.5-2.5 (3) MG/3ML Ipratropium -Albuterol 0.5-2.5 (3) MG/3ML No 3{ml_as _needed } QID Ipratropiu m-Albutero l 0.5-2.5 (3) MG/3ML Rosuvastati n Calcium 10 MG Rosuvastati n Calcium 10 MG No 1{table t} QD Rosuvastat in Calcium 10 MG Aspirin 81 81 MG Aspirin 81 81 MG No 1{table t} QD Aspirin 81 81 MG Albuterol Sulfate (2.5 MG/3ML) 0.083% Albuterol Sulfate (2.5 MG/3ML) 0.083% No 3{ml_as _needed } QID Albuterol Sulfate (2.5 MG/3ML) 0.083% Furosemide 40 MG Furosemide 40 MG No 1{table t} QD Furosemide 40 MG Metoprolol Succinate ER 50 MG Metoprolol Succinate ER 50 MG No 1{table t} BID Metoprolol Succinate ER 50 MG Ipratropium -Albuterol 0.5-2.5 (3) MG/3ML Ipratropium -Albuterol 0.5-2.5 (3) MG/3ML No 3{ml_as _needed } QID Ipratropiu m-Albutero l 0.5-2.5 (3) MG/3ML Rosuvastati n Calcium 10 MG Rosuvastati n Calcium 10 MG No 1{table t} QD Rosuvastat in Calcium 10 MG Aspirin 81 81 MG Aspirin 81 81 MG No 1{table t} QD Aspirin 81 81 MG Immunizations Ordered Immunization Name Filled Immunization Name Date Status Comments Source Afluria Afluria 2021-03-18 09:07:00 Completed [facility] Afluria Afluria 2021-03-18 09:07:00 Completed [facility] Moderna COVID-19 Vaccine Moderna COVID-19 Vaccine 2020-11-27 10:15:00 Completed [facility] Moderna COVID-19 Vaccine Moderna COVID-19 Vaccine 2020-11-27 10:15:00 Completed [facility] Moderna COVID-19 Vaccine Moderna COVID-19 Vaccine 2020-10-30 10:01:00 Completed [facility] Moderna COVID-19 Vaccine Moderna COVID-19 Vaccine 2020-10-30 10:01:00 Completed [facility] Afluria single dose Afluria single dose 10:16:00 Completed [facility] Afluria single dose Afluria single dose 10:16:00 Completed [facility] Pneumovax (PPSV23) Pneumovax (PPSV23) 2020-03-10 10:24:00 Completed [facility] Pneumovax (PPSV23) Pneumovax (PPSV23) 2020-03-10 10:24:00 Completed [facility] Adacel (Tdap) Adacel (Tdap) 2020-03-10 10:23:00 Completed [facility] Adacel (Tdap) Adacel (Tdap) 2020-03-10 10:23:00 Completed [facility] Covid-19 Vaccine Moderna (Spikevax), Mrna-lnp, Augusto Protein, Pf Unknown Completed [facility] Pneumococcal Vaccine, Conjugate 20 Unknown Completed [facility] AFLURIA TRIVALENT PF(0.5mL) Unknown Completed [facility] Covid-19 Vaccine Moderna (Spikevax), Mrna-lnp, Augusto Protein, Pf Unknown Completed [facility] Pneumococcal Vaccine, Conjugate 20 Unknown Completed [facility] Moderna COVID-19 Vaccine Moderna COVID-19 Vaccine Unknown Completed [facility] Afluria single dose Afluria single dose Unknown Completed [facility] Afluria Afluria Unknown Completed [facility] Pneumovax (PPSV23) Pneumovax (PPSV23) Unknown Completed [facility] Adacel (Tdap) Adacel (Tdap) Unknown Completed [facility] Moderna COVID-19 Vaccine Moderna COVID-19 Vaccine Unknown Completed [facility] Afluria single dose Afluria single dose Unknown Completed [facility] Afluria Afluria Unknown Completed [facility] Pneumovax (PPSV23) Pneumovax (PPSV23) Unknown Completed [facility] Adacel (Tdap) Adacel (Tdap) Unknown Completed [facility] Moderna COVID-19 Vaccine Moderna COVID-19 Vaccine Unknown Completed [facility] Afluria single dose Afluria single dose Unknown Completed [facility] Afluria Afluria Unknown Completed [facility] Pneumovax (PPSV23) Pneumovax (PPSV23) Unknown Completed [facility] Adacel (Tdap) Adacel (Tdap) Unknown Completed [facility] Moderna COVID-19 Vaccine Moderna COVID-19 Vaccine Unknown Completed [facility] Afluria (IIV4) - 3 years and older - SDS - 0.5mL Afluria (IIV4) - 3 years and older - SDS - 0.5mL Unknown Completed [facility] Afluria Afluria Unknown Completed [facility] Pneumovax (PPSV23) Pneumovax (PPSV23) Unknown Completed [facility] Adacel (Tdap) Adacel (Tdap) Unknown Completed [facility] Moderna COVID-19 Vaccine Moderna COVID-19 Vaccine Unknown Completed [facility] Afluria (IIV4) - 3 years and older - SDS - 0.5mL Afluria (IIV4) - 3 years and older - SDS - 0.5mL Unknown Completed [facility] Afluria Afluria Unknown Completed [facility] Pneumovax (PPSV23) Pneumovax (PPSV23) Unknown Completed [facility] Adacel (Tdap) Adacel (Tdap) Unknown Completed [facility] Moderna COVID-19 Vaccine Moderna COVID-19 Vaccine Unknown Completed [facility] Afluria (IIV4) - 3 years and older - SDS - 0.5mL Afluria (IIV4) - 3 years and older - SDS - 0.5mL Unknown Completed [facility] Afluria Afluria Unknown Completed [facility] Pneumovax (PPSV23) Pneumovax (PPSV23) Unknown Completed [facility] Adacel (Tdap) Adacel (Tdap) Unknown Completed [facility] Moderna COVID-19 Vaccine Moderna COVID-19 Vaccine Unknown Completed [facility] Afluria (IIV4) - 3 years and older - SDS - 0.5mL Afluria (IIV4) - 3 years and older - SDS - 0.5mL Unknown Completed [facility] Afluria Afluria Unknown Completed [facility] Pneumovax (PPSV23) Pneumovax (PPSV23) Unknown Completed [facility] Adacel (Tdap) Adacel (Tdap) Unknown [facility] COVID-19 Vaccine Unknown Completed [facility] Afluria (IIV4) - 3 years and older - SDS - 0.5mL Afluria (IIV4) - 3 years and older - SDS - 0.5mL Unknown Completed [facility] Afluria Afluria Unknown Completed [facility] Pneumovax (PPSV23) Pneumovax (PPSV23) Unknown Completed [facility] Adacel (Tdap) Adacel (Tdap) Unknown [facility] Moderna COVID-19 Vaccine Unknown Completed [facility] Afluria (IIV4) - 3 years and older - SDS - 0.5mL Afluria (IIV4) - 3 years and older - SDS - 0.5mL Unknown Completed [facility] Afluria Afluria Unknown Completed [facility] Pneumovax (PPSV23) Pneumovax (PPSV23) Unknown Completed [facility] Adacel (Tdap) Adacel (Tdap) Unknown [facility] Moderna COVID-19 Vaccine Unknown Completed [facility] Afluria (IIV4) - 3 years and older - SDS - 0.5mL Afluria (IIV4) - 3 years and older - SDS - 0.5mL Unknown Completed [facility] Afluria Afluria Unknown Completed [facility] Pneumovax (PPSV23) Pneumovax (PPSV23) Unknown Completed [facility] Adacel (Tdap) Adacel (Tdap) Unknown Completed [facility] Vital Signs Vital Name Observation Time Observation Value Comments S ource Systolic blood pressure 2024-07-22 20:44:00 134 mm[Hg] Judith Seybo ld - External Diastolic blood pressure 2024-07-22 20:44:00 68 mm[Hg] Judith Pichardo ld - External Heart rate 2024-07-22 20:44:00 90 /min Zach Bowen - External Body temperature 2024-07-22 20:44:00 36.78 Sanjuana Judith Bowen - External Respiratory rate 2024-07-22 20:44:00 20 /min Judith Bowen - External Body height 2024-07-22 20:44:00 167.6 cm Jenna Bowen - External Body weight 2024-07-22 20:44:00 62.71 kg Jenna clemente Seybold - External BMI 2024-07-22 20:44:00 22.31 kg/m2 Jenna Bowen - External Oxygen saturation in Arterial blood by Pulse oximetry 2024-07-22 20:44:00 96 /min Judith Pichardo ld - External Heart rate 2024-07-18 17:24:00 94 /min [facility] Respiratory rate 2024-07-18 17:24:00 16 /min [facility] Oxygen saturation in Arterial blood by Pulse oximetry 2024-07-18 17:24:00 94 /min [facility] Systolic blood pressure 2024-07-18 17:14:00 161 mm[Hg] [facility] Diastolic blood pressure 2024-07-18 17:14:00 87 mm[Hg] [facility] Body temperature 2024-07-18 17:13:00 36.33 Sanjuana [facility] Body weight 2024-07-18 10:00:00 56.881 kg [facility] BMI 2024-07-18 10:00:00 22.21 kg/m2 [facility] Body height 2024-07-16 23:19:00 160 cm [facility] Systolic blood pressure 2024-06-08 06:07:00 129 mm[Hg] [facility] Diastolic blood pressure 2024-06-08 06:07:00 93 mm[Hg] [facility] Heart rate 2024-06-08 06:07:00 78 /min [facility] Body temperature 2024-06-08 06:07:00 36.61 Sanjuana [facility] Respiratory rate 2024-06-08 06:07:00 17 /min [facility] Oxygen saturation in Arterial blood by Pulse oximetry 2024-06-08 06:07:00 96 /min [facility] Body height 2024-06-08 01:05:00 172.7 cm [facility] Body weight 2024-06-08 01:05:00 61.236 kg [facility] BMI 2024-06-08 01:05:00 20.53 kg/m2 [facility] Systolic blood pressure 2024-01-26 16:35:00 136 mm[Hg] Judith Seybo ld - External Diastolic blood pressure 2024-01-26 16:35:00 80 mm[Hg] Judith Seybo ld - External Heart rate 2024-01-26 16:35:00 84 /min Kelse y Seybold - External Body temperature 2024-01-26 16:35:00 37.11 Sanjuana Judith Seybold - External Respiratory rate 2024-01-26 16:35:00 20 /min Judith Seybold - External Body height 2024-01-26 16:35:00 167.6 cm Jenna ey Seybold - External Body weight 2024-01-26 16:35:00 61.406 kg Jenna ey Seybold - External BMI 2024-01-26 16:35:00 21.85 kg/m2 Jenna ey Seybold - External Oxygen saturation in Arterial blood by Pulse oximetry 2024-01-26 16:35:00 95 /min Judith Seybo ld - External Systolic blood pressure 2024-01-12 20:08:00 139 mm[Hg] Judith Seybo ld - External Diastolic blood pressure 2024-01-12 20:08:00 87 mm[Hg] Judith Seybo ld - External Heart rate 2024-01-12 20:08:00 85 /min Kelse y Seybold - External Body temperature 2024-01-12 20:08:00 37.06 Sanjuana Judith Seybold - External Body height 2024-01-12 20:08:00 167.6 cm Jenna ey Seybold - External Body weight 2024-01-12 20:08:00 60.782 kg Jenna clemente Seybold - External BMI 2024-01-12 20:08:00 21.63 kg/m2 Jenna clemente Seybold - External Oxygen saturation in Arterial blood by Pulse oximetry 2024-01-12 20:08:00 95 /min Judith Pichardo ld - External height 2023-09-01 10:10:00 66 [in_i] Commo n [facility] weight 2023-09-01 10:10:00 135.8 [lb_av] Co [facility] temperature 2023-09-01 10:10:00 97.9 [degF] Com [facility] bmi 2023-09-01 10:10:00 21.92 kg/m2 Comm on [facility] oximetry 2023-09-01 10:10:00 96 % Commo n [facility] blood pressure systolic 2023-09-01 10:10:00 138 mm[Hg] Common [facility] blood pressure diastolic 2023-09-01 10:10:00 72 mm[Hg] Common [facility] height 2023-08-11 09:00:00 66 [in_i] Commo n [facility] weight 2023-08-11 09:00:00 135.4 [lb_av] Co [facility] temperature 2023-08-11 09:00:00 98.1 [degF] Com [facility] bmi 2023-08-11 09:00:00 21.85 kg/m2 Comm on [facility] oximetry 2023-08-11 09:00:00 98 % Commo n [facility] respiratory rate 2023-08-11 09:00:00 17 /min [facility] blood pressure systolic 2023-08-11 09:00:00 142 mm[Hg] [facility] blood pressure diastolic 2023-08-11 09:00:00 80 mm[Hg] [facility] Systolic blood pressure 2023-02-28 15:56:00 138 mm[Hg] [facility] Diastolic blood pressure 2023-02-28 15:56:00 75 mm[Hg] [facility] Heart rate 2023-02-28 15:56:00 73 /min [facility] Body height 2023-02-28 15:56:00 167.6 cm [facility] Body weight 2023-02-28 15:56:00 60.328 kg [facility] BMI 2023-02-28 15:56:00 21.47 kg/m2 [facility] Oxygen saturation in Arterial blood by Pulse oximetry 2023-02-28 15:56:00 100 /min [facility] height 2023-02-07 11:30:00 66 [in_i] Commo n [facility] weight 2023-02-07 11:30:00 137.0 [lb_av] Co mmon [facility] temperature 2023-02-07 11:30:00 98.1 [degF] Com mon [facility] bmi 2023-02-07 11:30:00 22.11 kg/m2 Comm on [facility] oximetry 2023-02-07 11:30:00 96 % Commo n [facility] respiratory rate 2023-02-07 11:30:00 17 /min [facility] blood pressure systolic 2023-02-07 11:30:00 122 mm[Hg] [facility] blood pressure diastolic 2023-02-07 11:30:00 73 mm[Hg] [facility] Systolic blood pressure 2023-02-04 16:23:00 120 mm[Hg] [facility] Diastolic blood pressure 2023-02-04 16:23:00 77 mm[Hg] [facility] Heart rate 2023-02-04 16:23:00 82 /min [facility] Body temperature 2023-02-04 16:23:00 36.33 Sanjuana [facility] Respiratory rate 2023-02-04 16:23:00 17 /min [facility] Oxygen saturation in Arterial blood by Pulse oximetry 2023-02-04 16:23:00 95 /min [facility] Body height 2023-02-04 00:32:00 170.2 cm [facility] Body weight 2023-02-04 00:32:00 61.961 kg [facility] BMI 2023-02-04 00:32:00 21.39 kg/m2 [facility] height 2022-10-17 08:00:00 66 [in_i] Commo n [facility] weight 2022-10-17 08:00:00 141.0 [lb_av] Co [facility] temperature 2022-10-17 08:00:00 98.0 [degF] Com [facility] bmi 2022-10-17 08:00:00 22.76 kg/m2 Comm on [facility] oximetry 2022-10-17 08:00:00 97 % Commo n [facility] respiratory rate 2022-10-17 08:00:00 17 /min [facility] blood pressure systolic 2022-10-17 08:00:00 131 mm[Hg] [facility] blood pressure diastolic 2022-10-17 08:00:00 70 mm[Hg] [facility] height 2022-08-04 09:20:00 66 [in_i] Commo n [facility] weight 2022-08-04 09:20:00 139.1 [lb_av] Co mmon [facility] temperature 2022-08-04 09:20:00 98.4 [degF] Com [facility] bmi 2022-08-04 09:20:00 22.45 kg/m2 Comm on [facility] oximetry 2022-08-04 09:20:00 98 % Commo n [facility] respiratory rate 2022-08-04 09:20:00 18 /min Common [facility] blood pressure systolic 2022-08-04 09:20:00 137 mm[Hg] Common [facility] blood pressure diastolic 2022-08-04 09:20:00 82 mm[Hg] [facility] height 2021-05-10 09:20:00 66 [in_i] Commo n [facility] weight 2021-05-10 09:20:00 142.1 [lb_av] Co mmon [facility] temperature 2021-05-10 09:20:00 99.0 [degF] Com [facility] bmi 2021-05-10 09:20:00 22.93 kg/m2 Comm on [facility] oximetry 2021-05-10 09:20:00 99 % Commo n [facility] respiratory rate 2021-05-10 09:20:00 18 /min [facility] blood pressure systolic 2021-05-10 09:20:00 159 mm[Hg] [facility] blood pressure diastolic 2021-05-10 09:20:00 85 mm[Hg] [facility] height 2021-04-07 08:10:00 66 [in_i] Commo n [facility] weight 2021-04-07 08:10:00 145.3 [lb_av] Co mmon [facility] temperature 2021-04-07 08:10:00 98.0 [degF] Com [facility] bmi 2021-04-07 08:10:00 23.45 kg/m2 Comm on [facility] oximetry 2021-04-07 08:10:00 97 % Commo n [facility] respiratory rate 2021-04-07 08:10:00 17 /min [facility] blood pressure systolic 2021-04-07 08:10:00 137 mm[Hg] [facility] blood pressure diastolic 2021-04-07 08:10:00 76 mm[Hg] Common [facility] bmi 2021-03-18 08:40:00 23.08 kg/m2 Comm on [facility] oximetry 2021-03-18 08:40:00 98 % Commo n [facility] respiratory rate 2021-03-18 08:40:00 16 /min [facility] blood pressure systolic 2021-03-18 08:40:00 149 mm[Hg] Common [facility] blood pressure diastolic 2021-03-18 08:40:00 76 mm[Hg] [facility] height 2021-03-18 08:40:00 66 [in_i] Commo n [facility] weight 2021-03-18 08:40:00 143.0 [lb_av] Co [facility] temperature 2021-03-18 08:40:00 98.2 [degF] Com [facility] height 2021-01-22 10:40:00 66 [in_i] Commo n [facility] weight 2021-01-22 10:40:00 145.5 [lb_av] Co [facility] temperature 2021-01-22 10:40:00 99.3 [degF] Com [facility] bmi 2021-01-22 10:40:00 23.48 kg/m2 Comm on [facility] oximetry 2021-01-22 10:40:00 97 % Commo n [facility] respiratory rate 2021-01-22 10:40:00 17 /min [facility] blood pressure systolic 2021-01-22 10:40:00 158 mm[Hg] [facility] blood pressure diastolic 2021-01-22 10:40:00 84 mm[Hg] [facility] BP Systolic 2024-08-06 10:45:00 145 mm[Hg] Step hen F Ralph BP Diastolic 2024-08-06 10:45:00 70 mm[Hg] Claudy phen F Ralph Weight Measured 2024-08-06 10:45:00 137.20 pounds Clay F Ralph Height Measured 2024-08-06 10:45:00 67.00 inches Clay F Ralph Body Temperature 2024-08-06 10:45:00 98.00 degrees Clay F Ralph Heart Rate 2024-08-06 10:45:00 87.00 /min Ashley en F Ralph Respiratory Rate 2024-08-06 10:45:00 Clay F Ralph BP Systolic 2024-07-23 13:21:00 143 mm[Hg] Step hen F Ralph BP Diastolic 2024-07-23 13:21:00 71 mm[Hg] Claudy phen F Ralph Weight Measured 2024-07-23 13:21:00 138.60 pounds Clay F Ralph Height Measured 2024-07-23 13:21:00 67.00 inches Clay F Ralph Body Temperature 2024-07-23 13:21:00 98.90 degrees Clay F Ralph Heart Rate 2024-07-23 13:21:00 99.00 /min Ashley en F Ralph Respiratory Rate 2024-07-23 13:21:00 Clay F Ralph BP Systolic 2022-02-23 10:03:00 119 mm[Hg] Step hen F Ralph BP Diastolic 2022-02-23 10:03:00 84 mm[Hg] Claudy phen F Ralph Weight Measured 2022-02-23 10:03:00 132.00 pounds Clay F Ralph Height Measured 2022-02-23 10:03:00 67.00 inches Clay F Ralph Body Temperature 2022-02-23 10:03:00 98.40 degrees Clay F Ralph Heart Rate 2022-02-23 10:03:00 129.00 /min Step hen F Ralph Respiratory Rate 2022-02-23 10:03:00 Clay F Ralph BP Systolic 2021-11-19 14:41:00 116 mm[Hg] Step hen F Ralph BP Diastolic 2021-11-19 14:41:00 82 mm[Hg] Claudy phen F Ralph Weight Measured 2021-11-19 14:41:00 137.88 pounds Clay Rosas Height Measured 2021-11-19 14:41:00 67.00 inches Clay F Ralph Body Temperature 2021-11-19 14:41:00 98.40 degrees Clay F Ralph Heart Rate 2021-11-19 14:41:00 109.00 /min Step hen F Ralph Respiratory Rate 2021-11-19 14:41:00 Clay F Ralph BP Systolic 2015-04-06 15:37:00 151 mm[Hg] Step hen F Ralph BP Diastolic 2015-04-06 15:37:00 95 mm[Hg] Claudy phen F Ralph Weight Measured 2015-04-06 15:37:00 144.80 pounds Clay F Ralph Height Measured 2015-04-06 15:37:00 67.00 inches Clay F Ralph Body Temperature 2015-04-06 15:37:00 97.80 degrees Clay F Ralph Heart Rate 2015-04-06 15:37:00 110.00 /min Step hen F Ralph Respiratory Rate 2015-04-06 15:37:00 14.00 /min Clay F Ralph Height Measured 2015-04-06 15:36:00 67.00 inches Clay Rosas Body Temperature 2015-04-06 15:36:00 97.80 degrees Clay F Ralph Heart Rate 2015-04-06 15:36:00 110.00 /min Step hen F Ralph Respiratory Rate 2015-04-06 15:36:00 14.00 /min Clay F Ralph BP Systolic 2015-04-06 15:36:00 151 mm[Hg] Step hen F Ralph BP Diastolic 2015-04-06 15:36:00 95 mm[Hg] Claudy phen F Ralph Weight Measured 2015-04-06 15:36:00 144.80 pounds Clay Rosas Procedures Procedure Date / Time Performed Performing Clinician Source BASIC METABOLIC PANEL (NA, K, CL, CO2, GLUCOSE, BUN, CREATININE, CA) 2024-07-18 10:42:00 Belia Batista [facility] CBC WITH DIFF 2024-07-18 10:42:00 Belia Batista [facility] SPUTUM CULTURE 2024-07-17 22:08:00 Nica Rajput [facility] DIGOXIN 2024-07-17 09:54:00 Ranjana Cade [facility] BASIC METABOLIC PANEL (NA, K, CL, CO2, GLUCOSE, BUN, CREATININE, CA) 2024-07-17 09:53:00 Regulo [facility] CBC WITH DIFF 2024-07-17 09:53[facility] 2024-07-17 09:53:00 Atif [facility] MRSA / MSSA SCREEN BY PCR, ADAMA 2024-07-17 00:49:00 Belia Batista [facility] HB ECG ROUTINE & RHYTHM STRIP 2024-07-16 20:08:53 Sanjuana Sawant [facility] CT CHEST PULMONARY ANGIOGRAM 2024-07-16 19:59:49 Sanjuana Sawant [facility] LACTIC ACID WHOLE BLOOD 2024-07-16 19:15:00 Sanjuana Sawant [facility] URINALYSIS 2024-07-16 17:19:00 Sanjuana Sawant [facility] XR CHEST 1 VW 2024-07-16 17:00:57 Sanjuana Sawant [facility] HB ECG ROUTINE & RHYTHM STRIP 2024-07-16 17:00:04 Sanjuana Sawant [facility] MAGNESIUM 2024-07-16 16:46:00 Sanjuana Sawant [facility] TROPONIN I 2024-07-16 16:46:00 Sanjuana Sawant [facility] COMP. METABOLIC PANEL (98197) 2024-07-16 16:46:00 Sanjuana Sawant [facility] CBC WITH DIFF 2024-07-16 16:46:00 Sanjuana Sawant [facility] INFLUENZA A/B RSV COVID NAAT 2024-07-16 16:46:00 Sanjuana Sawant [facility] N-TERMINAL PRO-BNP 2024-07-16 16:46:00 Sanjuana Sawant [facility] LACTIC ACID WHOLE BLOOD 2024-07-16 16:46:00 Sanjuana Sawant [facility] LAB ONLY COVID INTERPRETATION 2024-07-16 16:46:00 Sanjuana Sawant [facility] DIGOXIN 2024-06-08 03:56:00 Ranjana Cade [facility] LACTIC ACID WHOLE BLOOD 2024-06-08 03:56:00 [facility] URINALYSIS 2024-06-08 02:55:00 Ranjana Cade [facility] CT ABDOMEN PELVIS W CONTRAST 2024-06-08 02:41:00 Rayo [facility] CT CHEST PULMONARY ANGIOGRAM 2024-06-08 02:41:00 Rayo [facility] XR CHEST 1 VW 2024-06-08 02:06:16 Rayo [facility] LACTIC ACID WHOLE BLOOD 2024-06-08 01:29:00 Mathieu Cade [facility] LIPASE 2024-06-08 01:28:00 Ranjana Cade [facility] TROPONIN I 2024-06-08 01:28:00 Ranjana Cade [facility] COMP. METABOLIC PANEL ([id number]) 2024-06-08 01:28:00 Rayo [facility] ETHANOL 2024-06-08 01:28:00 Ranjana Cade [facility] CBC WITH DIFF 2024-06-08 01:28:00 Rayo [facility] RAPID STREP SCREEN FOR GROUP A 2024-06-08 01:28:00 Rayo [facility] INFLUENZA A/B RSV COVID NAAT 2024-06-08 01:28:00 Rayo [facility] N-TERMINAL PRO-BNP 2024-06-08 01:28:00 Rayo [facility] TRANSTHORACIC ECHO (TTE) COMPLETE 2023-02-15 16:59:00 Luciano Bauer [facility] PATIENT FINANCIAL POLICY 2023-02-15 16:49:04 Doctor Unassigned, [place] [facility] NO SHOW OR MISSED APPOINTMENT POLICY ACKNOWLEDGEMENT 2023-02-15 16:48:37 Doctor Unassigned, [place] [facility] CONSENT/REFUSAL FOR DIAGNOSIS AND TREATMENT 2023-02-15 16:48:08 Doctor Unassigned, [place] [facility] ASSIGNMENT OF BENEFITS 2023-02-15 16:47:42 Docto r Unassigned, [place] [facility] MAGNESIUM 2023-02-04 08:11:00 Belia Batista [facility] TROPONIN I 2023-02-04 08:11:00 Lester [facility] BASIC METABOLIC PANEL (NA, K, CL, CO2, GLUCOSE, BUN, CREATININE, CA) 2023-02-04 08:11:00 [facility] LIPID PANEL ([id number])(TOTAL CHOLESTEROL, TRIGLYCERIDES, HDL) 2023-02-04 08:11:00 [facility] 2023-02-04 08:11:00 Belia Batista [facility] TROPONIN I 2023-02-04 00:46:00 Lester Belia [facility] COVID-19 (ID NOW RAPID TESTING) 2023-02-03 22:59:00 Jorje Ley [facility] CT CHEST PULMONARY ANGIOGRAM 2023-02-03 21:08:39 Jorje Ley [facility] XR CHEST 1 VW 2023-02-03 19:20:00 Jorje Ley [facility] TROPONIN I 2023-02-03 19:16:00 Jorje Ley [facility] THYROID STIMULATING HORMONE 2023-02-03 19:16[facility]00 [facility] COMP. METABOLIC PANEL ([id number]) 2023-02-03 19:16:00 Jorje Ley [facility] CBC WITH DIFF 2023-02-03 19:16:00 Jorje Ley [facility] GLYCOSYLATED HEMOGLOBIN (A1C) 2023-02-03 19:16:00 Belia Batista [facility] D-DIMER 2023-02-03 19:16:00 Jorje Ley [facility] N-TERMINAL PRO-BNP 2023-02-03 19:16:00 Jorje Isabel [facility] HB ECG ROUTINE & RHYTHM STRIP 2023-02-03 19:09:52 Jorje Ley [facility] NOTICE OF PRIVACY PRACTICES 2023-02-03 18:51:10 Doctor Unassigned, [place] [facility] CONSENT/REFUSAL FOR DIAGNOSIS AND TREATMENT 2023-02-03 18:50:41 Doctor Unassigned, [place] [facility] Encounters Start Date/Time End Date/Time Encounter Type Admission Type Attending [facility] Facility Care Department Encounter ID Source 2024-02-29 08:20:00 Outpatient Gutierrez, Jorge Luis STLC STLC [id number] [facility] 2024-02-28 15:04:00 Outpatient Gutierrez, Jorge Luis STLC STLMLC [id number] [facility] 2023-09-20 16:45:00 Outpatient Gutierrez, Jorge Luis STLC STLMLC [id number] [facility] 2023-09-06 10:33:00 Outpatient Gutierrez, Jorge Luis STLC STLMLC [id number] [facility] 2023-08-31 09:26:01 Outpatient Gutierrez, Jorge Luis STLC STLMLC [id number] [facility] 2023-08-10 09:43:00 Outpatient Gutierrez, Jorge Luis STLC STLMLC [id number] [facility] 2023-08-07 09:19:00 Outpatient Gutierrez, Jorge Luis STLC STLMLC [id number] [facility] 2023-02-08 16:17:00 Outpatient Gutierrez, Jorge Luis STLC STLMLC [id number] [facility] 2023-02-07 10:40:00 Outpatient Gutierrez, Jorge Luis STLMLC STLMLC [id number] [facility] 2022-10-13 11:34:01 Outpatient Gutierrez, Jorge Luis STLMLC STLMLC [id number] [facility] 2022-10-12 11:12:00 Outpatient Gutierrez, Jorge Luis STLMLC STLMLC [id number] [facility] 2022-10-10 14:36:01 Outpatient Gutierrez, Jorge Luis STLMLC STLMLC [id number] [facility] 2022-08-04 08:28:01 Outpatient Gutierrez, Jorge Luis STLMLC STLMLC [id number] [facility] 2022-08-02 07:34:00 Outpatient Gutierrez, Jorge Luis STLMLC STLMLC [id number] [facility] 2022-07-21 10:52:01 Outpatient Gutierrez, Jorge Luis STLMLC STLMLC [id number] [facility] 2021-07-07 14:24:33 Outpatient Gutierrez, Jorge Luis STLMLC STLMLC [id number] [facility] 2021-07-07 14:15:52 Outpatient Gutierrez, Jorge Luis STLMLC STLMLC [id number] [facility] 2021-07-07 14:07:36 Outpatient Gutierrez, Jorge Luis STLMLC STLMLC [id number] [facility] 2021-07-07 13:48:57 Outpatient Gutierrez, Jorge Luis STLMLC STLMLC [id number] [facility] 2021-07-07 13:38:11 Outpatient Gutierrez, Jorge Luis STLMLC STLMLC [id number] [facility] 2021-07-07 13:37:43 Outpatient Gutierrez, Jorge Luis STLMLC STLMLC [id number] [facility] 2021-07-07 13:37:06 Outpatient Gutierrez, [facility] [id number] [facility] 2021-07-07 13:16:26 Outpatient Gutierrez, [facility] [id number] [facility] 2021-07-07 13:06:08 Outpatient Gutierrez, [facility] [id number] [facility] 2021-07-07 12:05:34 Outpatient Gutierrez, [facility] [id number] [facility] 2021-07-07 11:49:58 Outpatient Gutierrez, [facility] [id number] [facility] 2024-08-14 11:15:00 2024-08-14 11:15:00 Outpatient KILEY FULLER [id number] [facility] 2024-08-06 10:43:04 2024-08-06 10:43:[address] [facility] 5 Clay Calderon Ralph 2024-08-06 00:00:00 2024-08-06 00:00:00 Outpatient Visit SFA SFA [id number] Clay Rosas 2024-07-23 13:19:06 2024-07-23 13:19:06 Outpatient SFA SFA [id number] Clay Calderon Ralph 2024-07-23 00:00:00 2024-07-23 00:00:00 Outpatient VIKKI MALONEY [id number] [facility] 2024-07-23 00:00:00 2024-07-23 00:00:00 Outpatient TIM JONES [id number] [facility] 2024-07-23 00:00:00 2024-07-23 00:00:00 Outpatient Visit SFA SFA [id number] Clay Calderon Ralph 2024-07-22 15:00:00 2024-07-22 15:00:00 Outpatient VIKKI MALONEY JUDITH TURNER [id number] Judith Bowen 2024-07-19 00:00:00 2024-07-19 12:35:10 [facility] Dirk, Kirsten Cavazos, Kirsten ERAZO ..840.114 350.1.13.10 [id number] [id number] [facility] 2024-07-16 10:27:00 2024-07-18 12:53:00 Inpatient X BELIA BATISTA LAZARUS [id number] [facility] 2024-07-16 10:27:00 2024-07-18 12:53:00 Hospital Encounter Sanjuana Sawant Shinta Oville, Jelani [facility] 1..840.114 350.1.13.10 [id number] [id number] [facility] 2024-07-18 00:00:00 2024-07-18 00:00:00 Outpatient JUDITH TURNER [id number] Judith Bowen 2024-07-18 00:00:00 2024-07-18 00:00:00 Outpatient JUDITH TURNER [id number] Judith Bowen 2024-07-15 00:00:00 2024-07-15 00:00:00 Outpatient KILEY FULLER [id number] Judith Bowen 2024-07-07 00:00:00 2024-07-07 00:00:00 Outpatient KILEY FULLER [id number] Judith Bowen 2024-06-07 19:32:00 2024-06-08 00:16:00 Emergency X RANJANA CADE SHINTA [facility] [id number] [facility] 2024-06-07 19:32:00 2024-06-08 00:16:00 Emergency Ranjana Cade AT [facility] 1.2.840.114 350.1.13.10 4.2.7.2.686 [id number] [facility] 2024-05-31 00:00:00 2024-05-31 00:00:00 Outpatient JUDITH TURNER [id number] Judith Andrés 2024-04-26 09:45:00 2024-04-26 09:45:00 Outpatient NICOLEMathieu KILEY TURNER [id number] Judith Andrés 2024-04-25 00:00:00 2024-04-25 00:00:00 Outpatient ALINA KILEY TURNER [id number] Judith Andrés 2024-04-17 06:17:00 2024-04-17 06:17:00 Outpatient Remi Santiago [facility] DAYS [id number] [facility] 2024-04-16 00:00:00 2024-04-16 00:00:00 Outpatient LUCIAILANAMathieu KILEY TURNER [id number] Judithnayeli Bowen 2024-04-15 00:00:00 2024-04-15 00:00:00 Outpatient NICOLEMathieu KILEY TURNER [id number] Judith Andrés 2024-04-10 00:00:00 2024-04-10 00:00:00 Outpatient JUDITH TURNER [id number] Judith Andrés 2024-04-04 00:00:00 2024-04-04 00:00:00 Outpatient ALINA KILEY TURNER [id number] Judith Andrés 2024-03-16 00:00:00 2024-03-16 00:00:00 Outpatient KILEY FULLER [id number] Judith samreen 2024-02-27 11:00:00 2024-02-27 11:00:00 Outpatient NGA HERNANDEZ [facility] [id number] [facility] 2024-02-23 00:00:00 2024-02-23 00:00:00 Outpatient JUDITH TURNER [id number] Judith Bowen 2024-02-22 00:00:00 2024-02-22 00:00:00 Outpatient JUDITH TURNER [id number] Judith Dodsontania 2024-02-06 00:00:00 2024-02-06 00:00:00 Outpatient JUDITH TURNER [id number] Judith Dodsontania 2024-02-02 10:30:00 2024-02-02 10:30:00 Outpatient YAMILET SINGLETARY [id number] [facility] 2024-01-26 11:30:00 2024-01-26 11:30:00 Outpatient PREKILEY JAMES JUDITH [id number] Judith Dodsontania 2024-01-23 00:00:00 2024-01-23 00:00:00 Outpatient JUDITH TURNER [id number] Judith Dodsontania 2024-01-23 00:00:00 2024-01-23 00:00:00 Outpatient PREZASKILEY JUDITH JUDITH [id number] Judith Dodsontania 2024-01-23 00:00:00 2024-01-23 00:00:00 Outpatient PREZAKILEY Murdock JUDITH [id number] Judith Dodsontania 2024-01-19 08:30:00 2024-01-19 08:30:00 Outpatient LAB90 JUDITH TURNER [id number] [facility] 2024-01-15 00:00:00 2024-01-15 00:00:00 Outpatient PREZASKILEY JUDITH JUDITH [id number] [facility] 2024-01-13 00:00:00 2024-01-13 00:00:00 Outpatient PREZAKILYE Murdock JUDITH JUDITH [id number] [facility] 2024-01-12 15:15:00 2024-01-12 15:15:00 Outpatient PREZASKILEY JUDITH JUDITH [id number] Judith [facility] 2023-09-05 00:00:00 2023-09-05 00:00:00 [id number] 2023-09-01 00:00:00 2023-09-01 00:00:00 OFFICE VISIT ESTAB PT LEVEL 4 STLMLC STLMLC [id number] [facility] 2023-08-11 00:00:00 2023-08-11 00:00:00 OFFICE VISIT ESTAB PT LEVEL 4 STLMLC STLMLC [id number] [facility] 2023-08-07 00:00:00 2023-08-07 00:00:00 (TEL) STLMLC STLMLC [id number] [facility] 2023-03-13 00:00:00 2023-03-13 00:00:00 (TEL) STLMLC STLMLC [id number] [facility] 2023-02-28 11:00:00 2023-02-28 11:48:21 Outpatient NGA HERNANDEZ [facility] [id number] [facility] 2023-02-28 11:00:00 2023-02-28 11:48:21 [facility] 1.2.840.114 350.1.13.10 4.2.7.2.686 [id number] [facility] 2023-02-17 00:00:00 2023-02-17 00:00:00 Telephone Luciano Bauer [facility] 1.2.840.114 350.1.13.10 4.2.7.2.686 [id number] [facility] 2023-02-15 11:00:00 2023-02-15 23:59:00 Outpatient R LUCIANO BAUER [facility] [id number] [facility] 2023-02-15 11:00:00 2023-02-15 23:59:00 Hospital En[facility] 1.2.840.114 350.1.13.10 4.2.7.2.686 [id number] [facility] 2023-02-07 00:00:00 2023-02-07 00:00:00 (TEL) STLMLC STLMLC [id number] [facility] 2023-02-07 00:00:00 2023-02-07 00:00:00 (WELLNESS) Wellness Visit STLMLC STLMLC [id number] [facility] 2023-02-06 00:00:00 2023-02-06 00:00:00 Telephone Luciano Bauer [facility] 1.2.840.114 350.1.13.10 4.2.7.2.686 [id number] [facility] 2023-02-03 14:00:00 2023-02-04 12:51:00 Outpatient X LESTER [facility] [id number] [facility] 2023-02-03 14:00:00 2023-02-04 12:51:00 Emergency AufderheJorje alcaraz [facility] .2.840.114 350.1.13.10 [id number] [id number] [facility] 2022-10-17 00:00:00 2022-10-17 00:00:00 OFFICE VISIT ESTAB PT LEVEL 4 STLMLC STLMLC [id number] [facility] 2022-08-04 00:00:00 2022-08-04 00:00:00 OFFICE VISIT ESTAB PT LEVEL 4 STLMLC STLMLC [id number] [facility] 2022-07-21 00:00:00 2022-07-21 00:00:00 (TEL) STLMLC STLMLC [id number] [facility] 2022-02-23 00:00:00 2022-02-23 00:00:00 Outpatient Visit SFA [id number] Clay Rosas 2022-01-07 08:10:00 2022-01-07 08:10:00 Outpatient Eula Hopson [facility] [id number] [facility] 2021-05-10 00:00:00 2021-05-10 00:00:00 OFFICE VISIT ESTAB PT LEVEL 4 STLMLC STLMLC [id number] [facility] 2021-04-15 00:00:00 2021-04-15 00:00:00 (TEL) STLMLC STLMLC [id number] [facility] 2021-04-14 00:00:00 2021-04-14 00:00:00 (TEL) STLMLC STLMLC [id number] [facility] 2021-04-07 00:00:00 2021-04-07 00:00:00 OFFICE VISIT ESTAB PT LEVEL 4 STLMLC STLMLC [id number] [facility] 2021-03-18 00:00:00 2021-03-18 00:00:00 OFFICE VISIT ESTAB PT LEVEL 4 STLMLC STLMLC [id number] [facility] 2021-01-22 00:00:00 2021-01-22 00:00:00 OFFICE VISIT ESTAB PT LEVEL 4 STLMLC STLMLC [id number] [facility] 2020-11-27 00:00:00 2020-11-27 00:00:00 (COVID Inj) COVID Injection STLMLC STLMLC [id number] [facility] 2020-10-30 00:00:00 2020-10-30 00:00:00 (COVID Inj) COVID Injection STLMLC STLMLC [id number] [facility] 2020-04-06 00:00:00 2020-04-06 00:00:00 Outpatient STLMLC STLMLC [id number] [facility] 2020-03-27 00:00:00 2020-03-27 00:00:00 Outpatient STLMLC STLMLC [id number] [facility] 2020-03-10 00:00:00 2020-03-10 00:00:00 Outpatient STLMLC STLMLC [id number] [facility] Results Test Description Test Time Test Comments Results Result Co mments Source [facility] Metabolic Panel (NA, K, CL, CO2, GLUCOSE, BUN, CREATININE, CA)2024-07-18 11:01:35* Test Item Value Reference Range Interpretation Comme [facility] NA (test code = 5586045841) 140 mmol/L 135-145 K (test code = 4181518622) 3.4 mmol/L 3.5-5.0 L CL (test code = 1538110680) 108 mmol/L 98-108 CO2 TOTAL (test code = 4101752225) 25 mmol/L 23-31 AGAP (test code = 6070819968) 7 2-16 BUN (test code = 6277045412) 13 mg/dL 7-23 GLUCOSE (test code = 1849435896) 92 mg/dL 70-110 CREATININE (test code = 2160-0) 0.59 mg/dL 0.60-1.25 L CALCIUM (test code = 3993899982) 9.3 mg/dL 8.6-10.6 eGFR (test code = 47681-4) 109.0 mL/min/1.73m2 CKD-EPI eGFR (2020). Assuming creatinine has been stable day-to-day for at least three months, the eGFR indicates Category G1 (>= 90 mL/min/1.73 m2) Lab Interpretation (test code = 59648-2) [facility]normal [facility] Lead ROUTINE [id number] 02:02:20* Test Item Value Reference Range Interpretation Comme [facility] Lab Interpretation (test cod e = 10688-7) Abnormal [facility]CT Chest pulmonary szwultbmt1145-48-70 21:09:07CT SCAN OF THE CHEST WITH CONTRAST 07/16/2024 1:45 PM TECHNIQUE: Multidetector helical CT scan of thechest was performedfollowing the intravenous administration of contrast. Coronal and sagittalreformats as well axial MIPs imaging were acquired. CLINICAL INFORMATION: PE suspected, high pretest prob C OMPARISON: Chest CT 07/08/2023 FINDINGS: CARDIOVASCULAR: The enhancement of the pulmonary artery is adequate. Nopulmonary emboli to the level of subsegmental branches.Pulmonary trunk is normal in diameter. The thoracic aorta is normal incaliber. Mild atherosclerotic plaques involving thoracic aorta.Noaneurysm.The cardiac size is normal. ?No pericardial effusion. There is severe LADcalcification and mild calcification of the reminder of coronary arteries.. LYMPH NODES: No thoracic adenopathy. MEDIASTINUM/ LOWER NECK: ?No mediastinal mass is seen. No actionablethyroid nodule is present. BRONCHOPULMONARY/PLEURA: The central airways are patent. Mild paraseptal and moderate predominantlyapical centrilobular emphysema. There is chronic bronchial wall thickening.Central peribronchial cuffing, new from 2023.Accessory fissures are noted in the right middle lobe, right lower lobe andlingula (variant anatomy). A 9 mm left upper lobe subpleural calcified nodule with surroundingpancreatic scarringis again noted. There is a small cluster of tree-in-bud nodules in the right upper lobe(9:91). A couple of additional micronodules are noted on series 9, probablysequela of infectious/inflammatory process.No focal opacities..No pleural effusion. No pneumothorax. UPPER ABDOMEN: unremarkable. BONES/ CHEST WALL: No aggressive or acute abnormalities.[facility] Lactic Acid Whole Asmem0537-83-35 19:20:24* Test Item Value Reference Range Interpretation Comme [facility] LACTIC ACID (test code = 7087513203) 2.14 mmol/L 0.50-2.20 Lab Interpretation (test cod e = 97492-7) Normal [facility]Cbc with Azpl8203-45-46 17:46:55* Test Item Value Reference Range Interpretation Comme nts WBC (test code = 6690-2) 18.22 4.20-10.70 H RBC (test code = 789-8) 4.27 4.26-5.52 HGB (test code = 718-7) 15.0 g/dL 12.2-16.4 HCT (test code = 4544-3) 44.1 % 38.4-49.3 MCV (test code = 787-2) 103.3 fL 81.7-95.6 H MCH (test code = 785-6) 35.1 pg 26.1-32.7 H MCHC (test code = 786-4) 34.0 g/dL 31.2-35.0 RDW-SD (test code = 78163-5) 48.4 fL 38.5-51.6 RDW-CV (test code = 788-0) 12.7 % 12.1-15.4 PLT (test code = 777-3) 180 150-328 MPV (test code = 43085-3) 13.7 fL 9.8-13.0 H IPF % (test code = 9614616703) 22.4 % 1.2-10.7 H Platelet count measured by fluorescence method. NRBC/100 WBC (test code = 2924324806) 0.0 0.0-10.0 NRBC x10^3 (test code = 7943689822) See_Comment [Automated messa ge] The system which generated this result transmitted reference range: 10*3/?L. The reference range was not used to interpret this result as normal/abnormal. GRAN MAT (NEUT) % (test code = 770-8) 74.5 % IMM GRAN % (test code = 9431107008) 0.70 % LYMPH % (test code = 736-9) 12.9 % MONO % (test code = 5905-5) 10.3 % EOS % (test code = 713-8) 0.8 % BASO % (test code = 706-2) 0.8 % GRAN MAT x10^3(ANC) (test code = 5011706164) 13.59 10*3/uL 1.99-6.95 H IMM GRAN x10^3 (test code = 0532113927) 0.12 10*3/uL 0.00-0.06 H LYMPH x10^3 (test code = 731-0) 2.35 10*3/uL 1.09-3.23 MONO x10^3 (test code = 742-7) 1.87 10*3/uL 0.36-1.02 H EOS x10^3 (test code = 711-2) 0.15 10*3/uL 0.06-0.53 BASO x10^3 (test code = 704-7) 0.14 10*3/uL 0.01-0.09 H GIANT PLATELETS (test code = 5908-9) Present See_Comment A [Automated messa ge] The system which generated this result transmitted reference range: (none). The reference range was not used to interpret this result as normal/abnormal. Lab Interpretation (test code = 81325-2) Abnormal [facility] CampusTroponin [id number] 17:34:47* Test Item Value Reference Range Interpretation Comme nts TROPONIN I (test code = 9269085072) 0.009 ng/mL <=0.034 ELISEO (test code = ELISEO) Reference (Normal) Range (defined by the 99th percentile reference limit): <= 0.034 ng/mL Note: Cardiac troponin begins to rise 3-4 hours after the onset of ischemia. Repeat in 4-6 hours if the sample was drawn within 3-4 hours of the onset of the symptom and found normal. Diagnosis of myocardial injury is made with acute changes in cTn concentrations with at least one serial sample above the 99th percentile upper reference limit (URL), taken together with the patient's clinical presentation. Biotin has been reported to cause a negative bias, interpret results relative to patient's use of biotin. Lab Interpretation (test code = 09601-0) Normal [facility] CampusN-Terminal Zzi-Hya3927-88-04 17:32:28* Test Item Value Reference Range Interpretation Comme nts NT-proBNP (test code = 08723-8) 401 pg/mL <=125 ELISEO (test code = ELISEO) Result Indeterminate-Consid er causes of NT-proBNP elevation other than Heart failure such as acute coronary syndrome, pulmonary embolism, pulmonary hypertension, sepsis, stroke, and renal dysfunction. Lab Interpretation (test code = 08375-4) Abnormal [facility] CampusMagnesium2025-02-04 17:23:05* Test Item Value Reference Range Interpretation Comme nts MAGNESIUM (test code = 7202838720) 2.0 mg/dL 1.7-2.4 Lab Interpretation (test cod e = 83388-7) Normal [facility] CampusComp. Metabolic Panel (90534)2024-07-16 17:22:45* Test Item Value Reference Range Interpretation Comme nts NA (test code = 5708436921) 139 mmol/L 135-145 K (test code = 6970221321) 3.8 mmol/L 3.5-5.0 CL (test code = 1724700447) 100 mmol/L 98-108 CO2 TOTAL (test code = 4793734128) 29 mmol/L 23-31 AGAP (test code = 0374122059) 10 2-16 BUN (test code = 1790620219) 3 mg/dL 7-23 L GLUCOSE (test code = 1656694485) 116 mg/dL 70-110 H CREATININE (test code = 2160-0) 0.52 mg/dL 0.60-1.25 L TOTAL BILI (test code = 8819300092) 0.9 mg/dL 0.1-1.1 CALCIUM (test code = 4113268525) 9.7 mg/dL 8.6-10.6 T PROTEIN (test code = 4357276708) 8.1 g/dL 6.3-8.2 ALBUMIN (test code = 9550099883) 4.5 g/dL 3.5-5.0 ALK PHOS (test code = 1119413544) 84 U/L 34-122 ALTv (test code = 1742-6) 14 U/L 5-50 AST(SGOT) (test code = 1145504526) 68 U/L 13-40 H eGFR (test code = 56113-3) 113.3 mL/min/1.73m2 CKD-EPI eGFR (2020). Assuming creatinine has been stable day-to-day for at least three months, the eGFR indicates Category G1 (>= 90 mL/min/1.73 m2) Lab Interpretation (test code = 41919-6) Abnormal [facility] 1 ui6290-63-28 17:19:51PROCEDURE: XR CHEST 1 07/16/2024 10:51 AM CLINICAL INDICATION: r/o pneumonia COMPARISON: Radiograph of 06/07/2024 FINDINGS: The lungs are hyperinflated consistent with known lung emphysema. Smalllinear right basilar scarring is noted. No lung consolidation. There is nopleural effusion. ?No pneumothorax. The cardiac size is at top normal size and stable. No aggressive osseous lesion.[facility] CampusLactic Acid Whole Xnfnx3599-63-63 17:00:46* Test Item Value Reference Range Interpretation Comme nts LACTIC ACID (test code = 3823025924) 2.59 mmol/L 0.50-2.20 H Lab Interpretation (test cod e = 21301-6) Abnormal [facility] CampusDigoxin2024-12-28 05:40:18* Test Item Value Reference Range Interpretation Comme nts DIGOXIN (test code = 6312242115) 0.8-1.6 L ELISEO (test code = ELISEO) Arrythmias: ?1.5 - 2.0 ng/mLToxic Range: ? Greater than or equal to 2.4 ng/mL Lab Interpretation (test code = 64674-9) Abnormal [facility] CampusLactic Acid Whole Httqs2268-50-77 04:03:51* Test Item Value Reference Range Interpretation Comme nts LACTIC ACID (test code = 6626370924) 2.67 mmol/L 0.50-2.20 H Lab Interpretation (test cod e = 09374-3) Abnormal [facility]CT [facility] pulmonary bxkrlcnuh3055-39-74 03:54:26Exam: CT Angiography Chest With Contrast, CT Abdomen and Pelvis WithContrast, 06/07/2024 8:30 PM. Ordering Physician: RANJANA CADE. History: Chest pain, right lower quadrant pain. Comparison: None.Technique: CT angiography chest was performed with intravenous contrast. 3D MIP images were rendered. ?CT abdomen and pelvis was obtained withintravenous contrast. CT was performed according to ALARA(As Low AsReasonably Achievable). Technical Quality: Adequate. Findings: CTA Chest:Pulmonary Arteries: There is no evidence of pulmonary embolus. Centralpulmonary arteries are normal in caliber. ? Xochitl gs/Pleura: There is no pleural effusion. Mild centrilobularemphysematous changes are noted. Calcified granuloma is seen in the leftupper lobe. There is no parenchymal consolidation or pulmonary mass.Central airways are patent. Cardiomediastinal: Heart size is normal. There is coronary arterycalcification. ?There is no pericardial effusion. Thoracic aorta is normalin caliber. Great vessels are unremarkable. Lymph Nodes: There is no mediastinal, axillary, or hilar lymphadenopathy. Osseous/Soft Tissues: There are degenerative changes of the spine. CT Abdomen:Organs: Liver is nodular in contour and heterogeneous in attenuation.Spleen, pancreas, and adrenal glands are normal.Biliary Tree: Gallbladder is normal. There is no pancreatic or biliary ductdilatation. Urinary Tract: Kidneys are symmetric in size. There is no hydronephrosis orhydroureter. Peritoneal/Retroperitoneal: There is no free air or free fluid. Lymph Nodes: There is no abdominal adenopathy. Vascular: ?Abdominal aorta is normal in caliber and demonstrates moderatecalcified plaque. There is moderate calcified plaque in the bilateral iliacarteries.Body Wall: Small fat-containing bilateral inguinal hernias are seen. ? Gastrointestinal: Stomach is mildly distended with fluid and gas.Fluid-filled, nondilated small bowel loops are noted. There is diffusesmall bowel mucosal fold thickening. There is no evidence of bowelobstru ction. Appendix is normal. There is rectal wall thickening. Osseous: There are degenerative changesof the spine. CT Pelvis:Genitourinary: Urinary bladder demonstrates mild wall thickening. ?Prostateand seminal vesicles are not enlarged. Peritoneal/Extraperitoneal: There is no pelvic free fluid. ?There is nopelvic adenopathy. Osseous/Soft Tissues: There are degenerative changes of the hips.[facility] Abdomen pelvis w thdmoteu1817-64-86 03:54:26Exam: CT Angiography Chest With Contrast, CT Abdomen and Pelvis WithContrast, 06/07/2024 8:30 PM. Ordering Physician: RANJANA CADE. History: Chest pain, right lower quadrant pain. Comparison: None.Technique: CT angiography chest was performed with intravenous contrast. 3D MIP images were rendered. ?CT abdomen and pelvis was obtained withintravenous contrast. CT was performed according to ALARA(As Low AsReasonably Achievable). Technical Quality: Adequate. Findings: CTA Chest:Pulmonary Arteries: There is no evidence of pulmonary embolus. Centralpulmonary arteries are normal in caliber. ? Xochitl gs/Pleura: There is no pleural effusion. Mild centrilobularemphysematous changes are noted. Calcified granuloma is seen in the leftupper lobe. There is no parenchymal consolidation or pulmonary mass.Central airways are patent. Cardiomediastinal: Heart size is normal. There is coronary arterycalcification. ?There is no pericardial effusion. Thoracic aorta is normalin caliber. Great vessels are unremarkable. Lymph Nodes: There is no mediastinal, axillary, or hilar lymphadenopathy. Osseous/Soft Tissues: There are degenerative changes of the spine. CT Abdomen:Organs: Liver is nodular in contour and heterogeneous in attenuation.Spleen, pancreas, and adrenal glands are normal.Biliary Tree: Gallbladder is normal. There is no pancreatic or biliary ductdilatation. Urinary Tract: Kidneys are symmetric in size. There is no hydronephrosis orhydroureter. Peritoneal/Retroperitoneal: There is no free air or free fluid. Lymph Nodes: There is no abdominal adenopathy. Vascular: ?Abdominal aorta is normal in caliber and demonstrates moderatecalcified plaque. There is moderate calcified plaque in the bilateral iliacarteries.Body Wall: Small fat-containing bilateral inguinal hernias are seen. ? Gastrointestinal: Stomach is mildly distended with fluid and gas.Fluid-filled, nondilated small bowel loops are noted. There is diffusesmall bowel mucosal fold thickening. There is no evidence of bowelobstru ction. Appendix is normal. There is rectal wall thickening. Osseous: There are degenerative changesof the spine. CT Pelvis:Genitourinary: Urinary bladder demonstrates mild wall thickening. ?Prostateand seminal vesicles are not enlarged. Peritoneal/Extraperitoneal: There is no pelvic free fluid. ?There is nopelvic adenopathy. Osseous/Soft Tissues: There are degenerative changes of the hips.[facility]XR Chest 1 xs0560-83-59 02:57:09CHEST SINGLE VIEW CLINICAL HISTORY: Tachycardia ORDERING PHYSICIAN: ?RANJANA CADE TECHNIQUE: Frontal view of chest COMPARISON: February 03, 2023. FINDINGS: The cardiac silhouette is within normal limits. ?Lungs are clear. Osseous structures are normal.[facility] with Ssoj0808-81-04 02:10:12* Test Item Value Reference Range Interpretation Comme nts WBC (test code = 6690-2) 10.44 4.20-10.70 RBC (test code = 789-8) 4.43 4.26-5.52 HGB (test code = 718-7) 15.2 g/dL 12.2-16.4 HCT (test code = 4544-3) 45.2 % 38.4-49.3 MCV (test code = 787-2) 102.0 fL 81.7-95.6 H MCH (test code = 785-6) 34.3 pg 26.1-32.7 H MCHC (test code = 786-4) 33.6 g/dL 31.2-35.0 RDW-SD (test code = 93103-7) 49.1 fL 38.5-51.6 RDW-CV (test code = 788-0) 13.0 % 12.1-15.4 PLT (test code = 777-3) 156 150-328 MPV (test code = 80280-8) 13.7 fL 9.8-13.0 H IPF % (test code = 3869612320) 21.4 % 1.2-10.7 H Platelet count measured by fluorescence method. NRBC/100 WBC (test code = 5329622042) 0.0 0.0-10.0 NRBC x10^3 (test code = 5166827635) See_Comment [Automated [employer] ge] The system which generated this result transmitted reference range: 10*3/?L. The reference range was not used to interpret this result as normal/abnormal. GRAN MAT (NEUT) % (test code = 770-8) 53.4 % IMM GRAN % (test code = 9196207342) 0.40 % LYMPH % (test code = 736-9) 30.1 % MONO % (test code = 5905-5) 12.3 % EOS % (test code = 713-8) 2.0 % BASO % (test code = 706-2) 1.8 % GRAN MAT x10^3(ANC) (test code = 1328031408) 5.58 10*3/uL 1.99-6.95 IMM GRAN x10^3 (test code = 1160735268) 0.04 10*3/uL 0.00-0.06 LYMPH x10^3 (test code = 731-0) 3.14 10*3/uL 1.09-3.23 MONO x10^3 (test code = 742-7) 1.28 10*3/uL 0.36-1.02 H EOS x10^3 (test code = 711-2) 0.21 10*3/uL 0.06-0.53 BASO x10^3 (test code = 704-7) 0.19 10*3/uL 0.01-0.09 H Lab Interpretation (test code = 36809-5) Abnormal [facility] CampusKhurram S3098-57-79 02:00:52* Test Item Value Reference Range Interpretation Comme nts TROPONIN I (test code = 4604458001) 0.009 ng/mL <=0.034 ELISEO (test code = ELISEO) Reference (Normal) Range (defined by the 99th percentile reference limit): <= 0.034 ng/mL Note: Cardiac troponin begins to rise 3-4 hours after the onset of ischemia. Repeat in 4-6 hours if the sample was drawn within 3-4 hours of the onset of the symptom and found normal. Diagnosis of myocardial injury is made with acute changes in cTn concentrations with at least one serial sample above the 99th percentile upper reference limit (URL), taken together with the patient's clinical presentation. Biotin has been reported to cause a negative bias, interpret results relative to patient's use of biotin. Lab Interpretation (test code = 69078-4) Normal [facility] CampusN-Terminal Jqw-Rse3223-18-28 01:58:31* Test Item Value Reference Range Interpretation Comme nts NT-proBNP (test code = 44303-7) 1170 pg/mL <=125 H ELISEO (test code = ELISEO) Positive: Heart Failure Likely Lab Interpretation (test code = 14625-0) Abnormal [facility] CampusEthanol2024-12-28 01:49:48* Test Item Value Reference Range Interpretation Comme nts ALCOHOL (test code = 7102649335) 252 mg/dL ELISEO (test code = ELISEO) <10 Exrmoxfm16-708 Toxic>100 Depression of PERSONAL SECRETARY>400 Fatalities Reported [facility] CampusComp. Metabolic Panel (93176)2024-06-08 01:49:08* Test Item Value Reference Range Interpretation Comme nts NA (test code = 4088482038) 142 mmol/L 135-145 K (test code = 8395881970) 3.8 mmol/L 3.5-5.0 CL (test code = 4996321305) 106 mmol/L 98-108 CO2 TOTAL (test code = 8892026349) 27 mmol/L 23-31 AGAP (test code = 0219103465) 9 2-16 BUN (test code = 6856241787) 8 mg/dL 7-23 GLUCOSE (test code = 4502106317) 122 mg/dL 70-110 H CREATININE (test code = 2160-0) 0.62 mg/dL 0.60-1.25 TOTAL BILI (test code = 9189235506) 0.5 mg/dL 0.1-1.1 CALCIUM (test code = 2507106382) 9.9 mg/dL 8.6-10.6 T PROTEIN (test code = 0101241739) 7.2 g/dL 6.3-8.2 ALBUMIN (test code = 6883689439) 4.3 g/dL 3.5-5.0 ALK PHOS (test code = 1208091475) 43 U/L 34-122 ALTv (test code = 1742-6) 16 U/L 5-50 AST(SGOT) (test code = 0125960553) 51 U/L 13-40 H eGFR (test code = 56600-0) 107.4 mL/min/1.73m2 CKD-EPI eGFR (2020). Assuming creatinine has been stable day-to-day for at least three months, the eGFR indicates Category G1 (>= 90 mL/min/1.73 m2) Lab Interpretation (test code = 18689-9) Abnormal [facility] CampusLipase2024-12-28 01:49:08* Test Item Value Reference Range Interpretation Comme nts LIPASE (test code = 4946939354) 243 U/L 0-220 H Lab Interpretation (test cod e = 54232-8) Abnormal [facility] CampusLactic Acid Whole Zostm1523-42-90 01:36:42* Test Item Value Reference Range Interpretation Comme nts LACTIC ACID (test code = 6487915938) 3.31 mmol/L 0.50-2.20 H Lab Interpretation (test cod e = 84862-6) Abnormal [facility] CampusCOAGULATION TIME ZXKSWQPKF5640-63-89 22:48:00 * Test Item Value Reference Range Interpretation Comme nts COAGULATION TIME ACTIVATED (test code = ACT) 200 SECONDS Performed by certified taper operator at [facility] COAGULATION TIME XANFPUJAH8473-28-47 16:10:00* Test Item Value Reference Range Interpretation Comme nts COAGULATION TIME ACTIVATED (test code = ACT) 126 SECONDS Performed by certified taper operator at [facility] CBC W/AUTO UBVD8247-59-79 18:50:00* Test Item Value Reference Range Interpretation Comme nts WHITE BLOOD CELL (test code = WBC) 11.3 x10 3/uL 4.5-11.0 H RED BLOOD CELL (test code = RBC) 4.27 x10 6/uL 4.00-5.60 N HEMOGLOBIN (test code = HGB) 14.2 g/dL 12.5-16.9 N HEMATOCRIT (test code = HCT) 43.5 % 37.5-50.7 N MEAN CELL VOLUME (test code = MCV) 101.9 fL 81.0-99.0 H MEAN CELL HGB (test code = MCH) 33.3 pg 27.0-33.0 H MEAN CELL HGB CONCETRATION (test code = MCHC) 32.6 g/dL 33.0-37.0 L RED CELL DISTRIBUTION WIDTH CV (test code = RDW) 13.2 % 11.5-14.5 N RED CELL DISTRIBUTION WIDTH SD (test code = RDW-SD) 49.2 fL 37.0-54.0 N PLATELET COUNT (test code = PLT) 121 x10 3/uL 150-400 L MEAN PLATELET VOLUME (test c ode = MPV) 13.6 fL 7.0-9.0 H NEUTROPHIL % (test code = NT%) 59.7 % 56.0-77.0 N IMMATURE GRANULOCYTE % (test code = IG%) 0.4 % 0.0-2.0 N LYMPHOCYTE % (test code = LY%) 25.4 % 14.0-32.0 N MONOCYTE % (test code = MO%) 10.8 % 4.8-9.0 H EOSINOPHIL % (test code = EO%) 1.9 % 0.3-3.7 N BASOPHIL % (test code = BA%) 1.8 % 0.0-2.0 N NUCLEATED RBC % (test code = NRBC%) 0.0 % 0-0 N NEUTROPHIL # (test code = NT#) 6.76 x10 3/uL 2.0-7.6 N IMMATURE GRANULOCYTE # (test code = IG#) 0.05 x10 3/uL 0.00-0.03 H LYMPHOCYTE # (test code = LY#) 2.88 x10 3/uL 1.0-3.8 N MONOCYTE # (test code = MO#) 1.22 x10 3/uL 0.1-0.8 H EOSINOPHIL # (test code = EO#) 0.21 x10 3/uL 0.0-0.2 H BASOPHIL # (test code = BA#) 0.20 x10 3/uL 0.0-0.2 N NUCLEATED RBC # (test code = NRBC#) 0.00 x10 3/uL 0.0-0.1 N PLT [id number] 18:50:00* Test Item Value Reference Range Interpretation Comme nts PLATELET ESTIMATE (test code = PLTEST) 212 x10 3/uL 150-400 N PLATELET MORPHOLOGY (test code = PLTMORPH) NORMAL SOME LARGE PLTS BASIC METABOLIC [id number] 15:00:00* Test Item Value Reference Range Interpretation Comme nts SODIUM (test code = NA) 143 mEq/L 134-147 N POTASSIUM (test code = K) 3.5 mEq/L 3.4-5.0 N CHLORIDE (test code = CL) 103 mEq/L 100-108 N CARBON DIOXIDE (test code = CO2) 32 mEq/l 21-33 N ANION GAP (test code = GAP) 12 0-20 N GLUCOSE (test code = GLU) 83 mg/dL 77-141 N BLOOD UREA NITROGEN (test code = BUN) 5 mg/dL 7-25 L GLOMERULAR FILTRATION RATE (test code = GFR) 103.5 80-90 H The Glomerular Filtration Rate is a calculated parameterbased on serum Creatinine, patient age and sex. GFR valuesless than 60 mL/min/1.73 square meters are indicative ofChronic Kidney Disease. Values less than 15 mL/min/1.73square meters indicate Kidney failure. The calculation forGFR is based on the CKD-EPI (2020) calculation. This formulais race indifferent and is the recommended formula for GFRby the National Kidney Foundation for Adults.The GFR will not calculate if the sex is unknown or if thepatient's age is <18 years. CREATININE (test code = CREAT) 0.7 mg/dL 0.6-1.3 N CALCIUM (test code = CA) 9.4 mg/dL 8.0-10.5 N PROTHROMBIN [id number] 14:50:00* Test Item Value Reference Range Interpretation Comme nts PROTHROMBIN TIME PATIENT (test code = PTP) 10.5 SECONDS 9.3-12.9 N INTERNATIONAL NORMAL RATIO (test code = INR) 0.9 0.8-1.2 N TARGET INR BY INDICATION Indication INR1. Prophylaxis of venous thrombosis 2.0 - 3.0 (orthopedic surgery), Prophylaxis of venous thrombosis (other than high-risk surgery), Treatment of Deep Vein Thrombosis/Pulmonary Embolism, Prevention of systemic embolism - Tissue heart valves, Acute Myocardial Infarction (to prevent systemic embolism), Valvular heart disease, Atrial Fibrillation, Bileaflet mechanical valve in aortic position.2. Mechanical prosthetic valves (high risk), 2.5 - 3.5 Presence of Lupus Anticoagulant or Antiphospholipid Antibodies, Prevention of systemic embolism - Acute Myocardial Infarction (to prevent recurrent infarct). Transthoracic echo (TTE)2023-02-16 00:37:30* Test Item Value Reference Range Interpretation Comme nts Height (test code = 4797794437) 67 in Weight (test code = 4978896714) 136 lbs Systolic BP (test code = 4645131517) 169 mmHg Diastolic BP (test code = 2895202841) 81 mmHg Heart Rate (test code = 8587324822) 94 bpm BSA (test code = 6844730821) 1.72 m2 LVIDD (test code = 1235580016) 5.00 cm Left Ventricular End Diastolic Volume by Teichholz Method (test code = 7734198) 117.9 mL IVS (test code = 9511627744) 1.06 cm Interventricular Septum Diastolic Thickness by 2D (test code = 3405737) 1.06 cm LVPWD (test code = 7710290554) 1.06 cm PW (test code = 0625496296) 1.06 cm 0.6-1.1 EF(Teich) (test code = 4021624190) 60.30 % LVIDS (test code = 7589753281) 3.40 cm Left Ventricular End Systolic Volume by Teichholz Method (test code = 9250084) 46.8 mL FS (test code = 4245511903) 32 % EF - 2D (test code = 31588004) 60.30 % LVOT diameter (test code = 8353230971) 2.22 cm LVOT area (test code = 3799872513) 3.90 cm2 ACS (test code = 1982656821) 2.13 cm Ao root diam (test code = 6162767500) 3.50 cm Aortic root (test code = 5599669840) 3.5 cm Ao root annulus (test code = 3134818536) 3.5 cm LA size (test code = 6585459595) 3.4 cm E wave decelartion time (test code = 0603857570) 0.23 s MV Peak E Skyla (test code = 1321325091) 69.2 cm/s MV Peak A Skyla (test code = 4419956405) 78.6 cm/s E/A ratio (test code = 0900507898) 0.88 ratio MV Prop V (test code = 1207536528) 24.70 cm/s Tapse (test code = 3885973650) 2.39 cm LVOT stroke volume (test code = 3397635303) 97.30 cm3 LVOT peak skyla (test code = 1276250294) 119.0 cm/s LVOT mn grad (test code = 6147698738) 2.6 mmHg AV LVOT peak gradient (test code = 3480091722) 5.7 mmHg LVOT peak VTI (test code = 8263578434) 25.1 cm LV V1 mean (test code = 1203823217) 75.00 cm/s Aortic valve mean velocity (test code = 4065853723) 90.6 cm/s Ao peak skyla (test code = 0815385135) 142.1 cm/s Ao VTI (test code = 2347519176) 27.4 cm AV area by cont VTI (test code = 5579377847) 3.5 cm2 AV area peak skyla (test code = 2706328597) 3.2 cm2 Ao max PG (test code = 6366138729) 8.10 mm[Hg] AV peak gradient (test code = 1157017109) 8.1 mmHg AV valve area (test code = 8049147909) 3.50 cm2 AV mean gradient (test code = 6290123214) 3.9 mmHg TR Peak Skyla (test code = 4478820084) 218.2 cm/s Triscuspid Valve Regurgitation Peak Gradient (test code = 2018789957) 19.0 mmHg LAV(MOD-sp4) (test code = 6289854481) 18.70 mL Radiology Study observation (narrative) (test code = 86076-4) ELISEO (test code = ELISEO) ?Left?Ventricle: Left ventricle size is normal. Normal wall thickness. Normal wall motion. Normal systolic function with a visually estimated EF of 55 - 60%. There is impaired relaxation. Normal left ventricular filling pressure. ?Tricuspid?Valve: Trace transvalvular regurgitation. Right ventricular systolic pressure is 15-20 mmHg. ?RA pressure is 0-5 mmHg. ?Aorta: Mildly enlarged ascending aorta 3.5cm. Left VentricleLeft ventricle size is normal. Normal wall thickness. Normal wall motion. Normal systolic function with a visually estimated EF of 55 - 60%. There is impaired relaxation. Normal left ventricular filling pressure.Right VentricleRight ventricle size is normal. Normal systolic function.Left AtriumLeft atrium size is normal.Right AtriumRight atrium size is normal.IVC/SVCRA pressure is 0-5 mmHg.Mitral ValveMitral valve structure is normal. Trace transvalvular regurgitation.Tricusp id ValveTricuspid valve structure is normal. Trace transvalvular regurgitation. Right ventricular systolic pressure is 15-20 mmHg. RA pressure is 0-5 mmHg.Aortic ValveTricuspid.Pulmon ic ValveNot well visualized. Trace transvalvular regurgitation.Ascendi ng AortaMildly enlarged ascending aorta 3.5cm.PericardiumNo pericardial effusion.Study DetailsStudy quality was adequate. A complete echocardiogram was performed using 2D, color flow Doppler and spectral Doppler. The apical, parasternal and subcostal views were obtained. [facility]cos[facility] Hemoglobin (A1C)2023-02-04 03:09:53* Test Item Value Reference Range Interpretation Comme [facility] HGB A1C (test code = 4548-4) 5.5 % 4.0-5.7 ELISEO (test code = ELISEO) Reference RangesNormal: <5.7%Prediabetes: 5.7 - 6.4%Diabetes: > 6.5% Lab Interpretation (test code = 32957-7) Normal [facility] CampusTroponin [id number] 02:15:10* Test Item Value Reference Range Interpretation Comme [facility] TROPONIN I (test code = 2957216641) 0.013 ng/mL <=0.034 ELISEO (test code = ELISEO) Reference (Normal) Range (defined by the 99th percentile reference limit): <= 0.034 ng/mL Note: Cardiac troponin begins to rise 3-4 hours after the onset of ischemia. Repeat in 4-6 hours if the sample was drawn within 3-4 hours of the onset of the symptom and found normal. Diagnosis of myocardial injury is made with acute changes in cTn concentrations with at least one serial sample above the 99th percentile upper reference limit (URL), taken together with the patient's clinical presentation. Biotin has been reported to cause a negative bias, interpret results relative to patient's use of biotin. Lab Interpretation (test code = 42051-0) Normal [facility] CampusThyroid Stimulating Hormone (TSH)2023-02-04 01:21:42* Test Item Value Reference Range Interpretation Comme nts TSH (test code = 9695457806) 1.59 See_Comment Biotin has been reported to cause a negative bias, interpret results relative to patient's use of biotin. [Automated message] The system which generated this result transmitted reference range: 0.45 - 4.70 mIU/L. The reference range was not used to interpret this result as normal/abnormal. Lab Interpretation (test code = 14565-0) Normal [facility] CampusCB WITH [id number] 20:22:22* Test Item Value Reference Range Interpretation Comme nts WBC (test code = 6690-2) 15.58 See_Comment H [Automated [employer]] The system which generated this result transmitted reference range: 4.20 - 10.70 10*3/?L. The reference range was not used to interpret this result as normal/abnormal. RBC (test code = 789-8) 4.26 See_Comment [Automated [employer]] The system which generated this result transmitted reference range: 4.26 - 5.52 10*6/?L. The reference range was not used to interpret this result as normal/abnormal. HGB (test code = 718-7) 14.2 g/dL 12.2-16.4 HCT (test code = 4544-3) 41.2 % 38.4-49.3 MCV (test code = 787-2) 96.7 fL 81.7-95.6 H MCH (test code = 785-6) 33.3 pg 26.1-32.7 H MCHC (test code = 786-4) 34.5 g/dL 31.2-35.0 RDW-SD (test code = 42670-6) 47.7 fL 38.5-51.6 RDW-CV (test code = 788-0) 13.3 % 12.1-15.4 PLT (test code = 777-3) 162 See_Comment [Automated [employer]] The system which generated this result transmitted reference range: 150 - 328 10*3/?L. The reference range was not used to interpret this result as normal/abnormal. MPV (test code = 31867-3) 13.6 fL 9.8-13.0 H IPF % (test code = 8675653624) 29.0 % 1.2-10.7 H Platelet count measured by fluorescence method. NRBC/100 WBC (test code = 9647993771) 0.0 See_Comment [Automated [employer] ssage] The system which generated this result transmitted reference range: 0.0 - 10.0 /100 WBCs. The reference range was not used to interpret this result as normal/abnormal. NRBC x10^3 (test code = 7830376369) See_Comment [Automated [employer]] The system which generated this result transmitted reference range: 10*3/?L. The reference range was not used to interpret this result as normal/abnormal. GRAN MAT (NEUT) % (test code = 770-8) 63.1 % IMM GRAN % (test code = 9648783270) 0.70 % LYMPH % (test code = 736-9) 26.2 % MONO % (test code = 5905-5) 8.3 % EOS % (test code = 713-8) 0.8 % BASO % (test code = 706-2) 0.9 % GRAN MAT x10^3(ANC) (test code = 4990804190) 9.83 10*3/uL 1.99-6.95 H IMM GRAN x10^3 (test code = 6866002546) 0.11 10*3/uL 0.00-0.06 H LYMPH x10^3 (test code = 731-0) 4.08 10*3/uL 1.09-3.23 H MONO x10^3 (test code = 742-7) 1.29 10*3/uL 0.36-1.02 H EOS x10^3 (test code = 711-2) 0.13 10*3/uL 0.06-0.53 BASO x10^3 (test code = 704-7) 0.14 10*3/uL 0.01-0.09 H PLSMACYTD LYMPHS (test code = 1579905264) Rare REACT LYMPHS (test code = 8916435015) Moderate GIANT PLATELETS (test code = 5908-9) Present See_Comment A [Automated messa ge] The system which generated this result transmitted reference range: (none). The reference range was not used to interpret this result as normal/abnormal. Lab Interpretation (test code = 81332-5) Abnormal [facility]TROPONIN [id number] 20:08:48* Test Item Value Reference Range Interpretation Comme nts TROPONIN I (test code = 8529162230) <=0.034 ELISEO (test code = ELISEO) Reference (Normal) Range (defined by the 99th percentile reference limit): <= 0.034 ng/mL Note: Cardiac troponin begins to rise 3-4 hours after the onset of ischemia. Repeat in 4-6 hours if the sample was drawn within 3-4 hours of the onset of the symptom and found normal. Diagnosis of myocardial injury is made with acute changes in cTn concentrations with at least one serial sample above the 99th percentile upper reference limit (URL), taken together with the patient's clinical presentation. Biotin has been reported to cause a negative bias, interpret results relative to patient's use of biotin. Lab Interpretation (test code = 40512-4) Normal [facility] CampusN-TERMINAL [id number] 20:06:06* Test Item Value Reference Range Interpretation Comme nts NT-proBNP (test code = 92603-9) 42 pg/mL <=125 Lab Interpretation (test cod e = 84056-5) Normal [facility] CampusCOMP. METABOLIC PANEL (30851)2023-02-03 19:57:05* Test Item Value Reference Range Interpretation Comme nts NA (test code = 3362979887) 136 mmol/L 135-145 K (test code = 1976886643) 3.6 mmol/L 3.5-5.0 CL (test code = 7771485019) 94 mmol/L 98-108 L CO2 TOTAL (test code = 0044522037) 27 mmol/L 23-31 AGAP (test code = 4657941211) 15 2-16 BUN (test code = 6953099005) 8 mg/dL 7-23 GLUCOSE (test code = 8030904000) 91 mg/dL 70-110 CREATININE (test code = 2144731208) 0.70 mg/dL 0.60-1.25 TOTAL BILI (test code = 0130789152) 0.5 mg/dL 0.1-1.1 CALCIUM (test code = 1496410322) 9.2 mg/dL 8.6-10.6 T PROTEIN (test code = 1075585147) 8.1 g/dL 6.3-8.2 ALBUMIN (test code = 0423714861) 4.8 g/dL 3.5-5.0 ALK PHOS (test code = 7314795738) 57 U/L 34-122 ALTv (test code = 1742-6) 48 U/L 5-50 AST(SGOT) (test code = 6396609682) 70 U/L 13-40 H eGFR (test code = 7836900359) 114.3 mL/min/1.73m2 ELISEO (test code = ELISEO) Association of Glomerular Filtration Rate (GFR) and Staging of Kidney Disease* + --+ --+ ------+| GFR (mL/min/1.73 m2) ?| With Kidney Damage ?| ?Without Kidney Damage+ --------+ --------+ +| ?>90 ?| ?Stage one ?| ? Normal ?+ ---+ ---+ -------+| ?60-89 ?| ?Stage two ?| ? Decreased GFR ? + --+ --+ ------+| ?30-59 ?| ?Stage three ?| ? Stage three ? + --+ --+ ------+| ?15-29 ?| ?Stage four ? | ? Stage four ?+ ---+ ---+ -------+| ?<15 (or dialysis) ? ?| ?Stage five ? | ? Stage five ?+ ---+ ---+ -------+ *Each stage assumes the associated GFR level has been in effect for at least three months. ?Stages 1 to 5, with or without kidney disease, indicate chronic kidney disease. Notes: Determination of stages one and two (with eGFR >59mL/min/1.73 m2) requires estimation of kidney damage for at least three months as defined by structural or functional abnormalities of the kidney, manifested by either:Pathological abnormalities or Markers of kidney damage (including abnormalities in the composition of the blood or urine or abnormalities in imaging tests). Lab Interpretation (test code = 04351-8) Abnormal [facility] CampusD-[id number] 19:51:01* Test Item Value Reference Range Interpretation Comments D-DIMER (test code = 9711047767) 0.89 See_Comment H [Automated message] The system which generated this result transmitted reference range: <0.41 ?g/mL (FEU). The reference range was not used to interpret this result as normal/abnormal. ELISEO (test code = ELISEO) This test may be used in conjunction with a clinical pretest probability (PTP) assessment model to exclude venous thromboembolism (VTE) in patients suspected of deep venous thrombosis (DVT) and pulmonary embolism (PE) A D-Dimer value less than 0.50 ?g/ml (FEU) has a negative predicative value of 96 to 100% (95% CI)and 97 to 100% (95% CI) as an aid in the diagnosis of deep vein thrombosis (DVT) and pulmonary embolism when there is low or moderate pretest probability of PE or DVT. D-Dimer values are expressed in initial fibrinogen equivalent units (FEU)" The assay results should be used with other information, including the clinical context, in forming a diagnosis. Lab Interpretation (test code = 54548-1) Abnormal [facility] CampusLIPID PANEL WITH REFLEX DIRECT [id number] 00:00:00* Test Item Value Reference Range Interpretation Comme nts CALC LDL CHOL (test code = 52698-9) 64 MG/DL See_Comment [Automated [employer]] The system which generated this result transmitted reference range: <100 MG/DL. The reference range was not used to interpret this result as normal/abnormal. CHOLESTEROL (test code = 2093-3) 132 MG/DL See_Comment [Automated [employer]] The system which generated this result transmitted reference range: <200 MG/DL. The reference range was not used to interpret this result as normal/abnormal. HDL CHOLESTEROL (test code = 2085-9) 53 MG/DL See_Comment [Automated [employer]] The system which generated this result transmitted reference range: >39 MG/DL. The reference range was not used to interpret this result as normal/abnormal. RISK RATIO LDL/HDL (test code = 88612-7) 1.21 RATIO See_Comment [Automated message] The system which generated this result transmitted reference range: <3.55 RATIO. The reference range was not used to interpret this result as normal/abnormal. TRIGLYCERIDES (test code = 2571-8) 74 MG/DL See_Comment [Automated messa ge] The system which generated this result transmitted reference range: <150 MG/DL. The reference range was not used to interpret this result as normal/abnormal. - CT LD LUNG CA [id number] 00:00:00 [facility] 1960 Sex: M Name: DIETER CHOUDHURY [facility] : 1960 Age/S: 61 / M [address] [place] [address] Unit #: [id number] Loc: [place] [address] Phys: Eula Leal MD Acct: [id number] Dis Date: Status: DEP CLI PHONE #: [phone] Exam Date: 01/07/2022825 FAX #: [phone] Reason: TOBACCO USE EXAMS: CPT CODE: [id number] CT LD LUNG CA SCREENING 76366 PROCEDURE INFORMATION: Exam: CT Chest For Lung Cancer Screening Without Contrast Exam date and time: 01/07/2022 8:28 AM Age: 61 years old Clinical indication:Screening exam; Personal history of tobacco use/personal history of nicotine dependence Additional history: Asymptomatic patient meeting high-risk criteria for lung screening. Patient is currently a smoker. There is a 45 pack-year history of smoking. Baseline. TECHNIQUE: Imaging protocol: CT Chest.Low-dose for lung cancer screening without contrast. 3D [...] represent mild pulmonary edema. Small nonspecific foci ground- glass pulmonary parenchymal opacity are noted at the lateral basal right lower lobe, ventral right middle lobe and the ventralupper lobes bilaterally. Hrih-lk-rowspgks centrilobular and paraseptal emphysema. A calcified granuloma [...] effusion. PAGE 1 Signed Report (CONTINUED) Name: DIETER CHOUDHURY [facility] : 1960 Age/S: 61 / M [address] [place] [address] Blvd Unit #: [id number] Loc: [place] [address] Phys: Eula Leal MD Acct: [id number] Dis Date: Status: DEP CLI PHONE #: [phone] Exam Date: 01/07/2022825 FAX #: [phone] Reason: TOBACCO USE EXAMS: CPT CODE: [id number] CT LD LUNG CA SCREENING 27603 (Continued) Heart: Qqcg-dm-cmmjkbem cardiomegaly with coronary artery calcifications. No pericardial fluid collection. Mediastinum: Unremarkable. Vasculature: Vascular calcification great vessels arising from thearch. Vascular calcification normal caliber thoracic aorta. Vascular [...] and signed by: Milton Harris M.D. CC: Phoebe Leal MD Technologist:RT Debra(R)(CT) CTDI: DLP: Trnscb Date/Time: 01/10/2022 (1211) [email or web address] Orig Print D/T: S: 01/10/2022 (0276) PAGE 2 Signed Report COMPREHENSIVE METABOLIC [id number] 03:38:27* Test Item Value Reference Range Interpretation Comme nts GLUCOSE (test code = 2217) 77 MG/DL 70-99 BUN (test code = 2208) 8 MG/DL 8-23 CREATININE (test code = 2214) 0.78 MG/DL 0.80-1.40 L eGFR (2020 CKD-EPI) (test code = 04909) 102 ML/MIN/1.73 >60 CALC BUN/CREAT (test code = 2235) 10 RATIO 6-28 SODIUM (test code = 2231) 139 MEQ/L 133-146 POTASSIUM (test code = 2228) 4.1 MEQ/L 3.5-5.4 CHLORIDE (test code = 2215) 99 MEQ/L 95-107 CARBON DIOXIDE (test code = 2206) 23 MEQ/L 19-31 CALCIUM (test code = 2209) 9.9 MG/DL 8.5-10.5 PROTEIN, TOTAL (test code = 2229) 7.1 G/DL 6.1-8.3 ALBUMIN (test code = 2201) 4.6 G/DL 3.5-5.2 CALC GLOBULIN (test code = 2240) 2.5 G/DL 1.9-3.7 CALC A/G RATIO (test code = 2234) 1.8 RATIO 1.0-2.6 BILIRUBIN, TOTAL (test code = 2207) 0.4 MG/DL See_Comment [Automated me ssage] The system which generated this result transmitted reference range: <=1.2. The reference range was not used to interpret this result as normal/abnormal. ALKALINE PHOSPHATASE (test code = 2203) 55 U/L 40-123 AST (test code = 2218) 31 U/L 9-50 ALT (test code = 2219) 20 U/L 5-50 UNLESS OTHERWISE INDICATED, ALL TESTING PERFORMED [facility]ENTERInnoval[facility] [employer] [address] [place] [address] CREDENTIALS SPECIALIST: MICHELLE BENTLEY M.D. CLIA NUMBER [id number] [facility] [place]. [id number] COMPREHENSIVE METABOLIC [id number] 00:00:00* Test Item Value Reference Range Interpretation Comme nts GLUCOSE (test code = 7) 77 MG/DL BUN (test code = 2208) 8 MG/DL CREATININE (test code = 2214) 0.78 MG/DL eGFR (2020 CKD-EPI) (test code = 92862) 102 ML/MIN/1.73 CALC BUN/CREAT (test code = 2235) 10 RATIO SODIUM (test code = 2231) 139 MEQ/L POTASSIUM (test code = 2228) 4.1 MEQ/L CHLORIDE (test code = 2215) 99 MEQ/L CARBON DIOXIDE (test code = 2206) 23 MEQ/L CALCIUM (test code = 2209) 9.9 MG/DL PROTEIN, TOTAL (test code = 2229) 7.1 G/DL ALBUMIN (test code = 2201) 4.6 G/DL CALC GLOBULIN (test code = 2240) 2.5 G/DL CALC A/G RATIO (test code = 2234) 1.8 RATIO BILIRUBIN, TOTAL (test code = 2207) 0.4 MG/DL ALKALINE PHOSPHATASE (test code = 2204) 55 U/L AST (test code = 2218) 31 U/L ALT (test code = 2219) 20 U/L Clay RosasPUTNAM COUNTY MEMORIAL HOSPITALPREHENSIVE METABOLIC [id number] 00:00:00* Test Item Value Reference Range Interpretation Comme nts GLUCOSE (test code = 2217) 77 MG/DL BUN (test code = 2208) 8 MG/DL CREATININE (test code = 2214) 0.78 MG/DL eGFR (2020 CKD-EPI) (test code = 68723) 102 ML/MIN/1.73 CALC BUN/CREAT (test code = 2235) 10 RATIO SODIUM (test code = 2231) 139 MEQ/L POTASSIUM (test code = 2228) 4.1 MEQ/L CHLORIDE (test code = 2215) 99 MEQ/L CARBON DIOXIDE (test code = 2206) 23 MEQ/L CALCIUM (test code = 2209) 9.9 MG/DL PROTEIN, TOTAL (test code = 2229) 7.1 G/DL ALBUMIN (test code = 2201) 4.6 G/DL CALC GLOBULIN (test code = 2240) 2.5 G/DL CALC A/G RATIO (test code = 2234) 1.8 RATIO BILIRUBIN, TOTAL (test code = 2207) 0.4 MG/DL ALKALINE PHOSPHATASE (test code = 2204) 55 U/L AST (test code = 2218) 31 U/L ALT (test code = 2219) 20 U/L Clay RosasPUTNAM COUNTY MEMORIAL HOSPITALPREHENSIVE METABOLIC [id number] 00:00:00* Test Item Value Reference Range Interpretation Comme nts GLUCOSE (test code = 2217) 77 MG/DL BUN (test code = 2208) 8 MG/DL CREATININE (test code = 2214) 0.78 MG/DL eGFR (2020 CKD-EPI) (test code = 09898) 102 ML/MIN/1.73 CALC BUN/CREAT (test code = 2235) 10 RATIO SODIUM (test code = 2231) 139 MEQ/L POTASSIUM (test code = 2228) 4.1 MEQ/L CHLORIDE (test code = 2215) 99 MEQ/L CARBON DIOXIDE (test code = 2206) 23 MEQ/L CALCIUM (test code = 2209) 9.9 MG/DL PROTEIN, TOTAL (test code = 2229) 7.1 G/DL ALBUMIN (test code = 2201) 4.6 G/DL CALC GLOBULIN (test code = 2240) 2.5 G/DL CALC A/G RATIO (test code = 2234) 1.8 RATIO BILIRUBIN, TOTAL (test code = 2207) 0.4 MG/DL ALKALINE PHOSPHATASE (test code = 2204) 55 U/L AST (test code = 2218) 31 U/L ALT (test code = 2219) 20 U/L Clay Rosas History and Physical Notes Date/Time Note Provider Source 2024-07-16 21:14:58 [facility] ADMIT H&P Date of Service: 07/16/2024 CHIEF COMPLAINT: cough Subjective History of Present Illness 63 yo male with pmh of COPD, CHF, HLD, HTN who presents to the ED secondary to cough with fever and congestion for the past 3-4 days ago. Associated symptoms: wheezing. Was seen in the media clerk and noted to be tachycardia. Additional symptoms: +productive cough +diaphoresis, +headache, +myalgia, +sore throat +diarrhea PAST MEDICAL HISTORY Past Medical History: Diagnosis Date CHF (congestive heart failure) Hyperlipidemia Hypertension Past Surgical History None reported Family History Problem Relation Age of Onset Cancer Father Cancer Sister ALLERGIES No Known Allergies MEDICATIONS No current facility-administered medications on file prior to encounter. Current Outpatient Medications on File Prior to Encounter Medication Sig Dispense Refill dicyclomine 10 mg capsule Take 1 capsule by mouth 3 (three) times daily as needed for Abdominal pain. 15 capsule 0 methocarbamoL 500 mg tablet Take 1 tablet by mouth 3 (three) times daily as needed for Pain (scale 7-10). 15 tablet 0 metoprolol succinate XL 50 mg 24 hr tablet Take 1 tablet by mouth in the morning and 1 tablet in the evening. 30 tablet 0 furosemide (LASIX) 40 mg tablet Take 1 tablet by mouth in the morning. rosuvastatin 10 mg CpSP Take by mouth. sacubitriL-valsartan (ENTRESTO) 49-51 mg tablet Take by mouth 2 (two) times daily. I attest that the foregoing medication list in the medical record is true, accurate and complete to the best of my knowledge. SOCIAL HISTORY Social History Socioeconomic History Marital status: Tobacco Use Smoking status: Every Day Current packs/day: 2.00 Average packs/day: 2.0 packs/day for 35.0 years (70.0 ttl pk-yrs) Types: Cigarettes Smokeless tobacco: Former Types: Chew Quit date: 01/2023 Substance and Sexual Activity Drug use: Never REVIEW OF SYSTEMS Review of Systems Constitutional: Positive for diaphoresis and fever. Negative for activity change, appetite change, chills, fatigue and unexpected weight change. HENT: Positive for congestion and sore throat. Negative for dental problem, drooling, ear discharge, ear pain, facial swelling, hearing loss, mouth sores, nosebleeds, postnasal drip, rhinorrhea, sinus pressure, sneezing, tinnitus, trouble swallowing and voice change. Eyes: Positive for visual disturbance. Negative for photophobia, pain, discharge, redness and itching. Respiratory: Positive for cough (productive) and wheezing. Negative for apnea, choking, chest tightness, shortness of breath and stridor. Breasts: Negative. Cardiovascular: Negative. Gastrointestinal: Positive for diarrhea. Negative for abdominal distention, abdominal pain, anal bleeding, blood in stool, constipation, nausea, rectal pain and vomiting. Genitourinary: Negative. Musculoskeletal: Positive for myalgias. Negative for arthralgias, back pain, gait problem, joint swelling, neck pain and neck stiffness. Skin: Negative. Neurological: Positive for headaches. Negative for dizziness, tremors, seizures, syncope, facial asymmetry, speech difficulty, weakness, light-headedness and numbness. Psychiatric/Behavioral: Negative. Endocrine: Endocrine negative Objective PHYSICAL EXAMINATION Vitals: 07/17/24 0122 07/17/24 0330 07/17/24 0345 07/17/24 0400 BP: 128/80 Pulse: 64 64 74 74 Resp: 20 20 16 13 Temp: 36.8 ?C (98.3 ?F) TempSrc: Temporal Artery SpO2: 95% 95% 98% 96% Weight: 128 lb 11.2 oz (58.4 kg) Height: Physical Exam Vitals and nursing note reviewed. Constitutional: General: He is not in acute distress. Appearance: Normal appearance. He is not ill-appearing, toxic-appearing or diaphoretic. HENT: Head: Normocephalic and atraumatic. Right Ear: External ear normal. Left Ear: External ear normal. Nose: Nose normal. No congestion or rhinorrhea. Mouth/Throat: Mouth: Mucous membranes are moist. Pharynx: No oropharyngeal exudate or posterior oropharyngeal erythema. Eyes: General: No scleral icterus. Extraocular Movements: Extraocular movements intact. Conjunctiva/sclera: Conjunctivae normal. Pupils: Pupils are equal, round, and reactive to light. Cardiovascular: Rate and Rhythm: Normal rate and regular rhythm. Pulmonary: Effort: Pulmonary effort is normal. Breath sounds: Normal breath sounds. Abdominal: General: Abdomen is flat. There is no distension. Palpations: Abdomen is soft. Tenderness: There is no abdominal tenderness. Musculoskeletal: General: Normal range of motion. Cervical back: Normal range of motion and neck supple. Right lower leg: No edema. Left lower leg: No edema. Neurological: Mental Status: He is alert. LABS/IMAGING - reviewed CT SCAN OF THE CHEST WITH CONTRAST 07/16/2024 1:45 PM TECHNIQUE: Multidetector helical CT scan of the chest was performed following the intravenous administration of contrast. Coronal and sagittal reformats as well axial MIPs imaging were acquired. CLINICAL INFORMATION: PE suspected, high pretest prob COMPARISON: Chest CT 07/08/2023 FINDINGS: CARDIOVASCULAR: The enhancement of the pulmonary artery is adequate. No pulmonary emboli to the level of subsegmental branches. Pulmonary trunk is normal in diameter. The thoracic aorta is normal in caliber. Mild atherosclerotic plaques involving thoracic aorta. No aneurysm. The cardiac size is normal. No pericardial effusion. There is severe LAD calcification and mild calcification of the reminder of coronary arteries. . LYMPH NODES: No thoracic adenopathy. MEDIASTINUM/ LOWER NECK: No mediastinal mass is seen. No actionable thyroid nodule is present. BRONCHOPULMONARY/PLEURA: The central airways are patent. Mild paraseptal and moderate predominantly apical centrilobular emphysema. There is chronic bronchial wall thickening. Central peribronchial cuffing, new from 2023. Accessory fissures are noted in the right middle lobe, right lower lobe and lingula (variant anatomy). A 9 mm left upper lobe subpleural calcified nodule with surrounding pancreatic scarring is again noted. There is a small cluster of tree-in-bud nodules in the right upper lobe (9:91). A couple of additional micronodules are noted on series 9, probably sequela of infectious/inflammatory process. No focal opacities. . No pleural effusion. No pneumothorax. UPPER ABDOMEN: unremarkable. BONES/ CHEST WALL: No aggressive or acute abnormalities. IMPRESSION No pulmonary emboli. AIDOC (computer aided detection software) confirms no filling defects within the pulmonary arteries. No pneumonia There is peribronchial cuffing over pre-existing bronchial wall thickening which could be sequela of infectious bronchitis, or exacerbation of chronic bronchitis. Lung emphysema. Severe LAD calcification. PROCEDURE: XR CHEST 1 VW 07/16/2024 10:51 AM CLINICAL INDICATION: r/o pneumonia COMPARISON: Radiograph of 06/07/2024 FINDINGS: The lungs are hyperinflated consistent with known lung emphysema. Small linear right basilar scarring is noted. No lung consolidation. There is no pleural effusion. No pneumothorax. The cardiac size is at top normal size and stable. No aggressive osseous lesion. IMPRESSION No pneumonia or acute finding. Assessment & Plan Dieter Choudhury is a 63 year old male with PMH as listed above, admitted to the hospital with: Acute respiratory failure: -- Will treat underlying condition -- Oxygen supplementation as needed 2. COPD exacerbation -- Will start antibiotics (azithromycin) -- Will continue with atrovent/xoponex scheduled -- Oxygen supplementation as needed -- Will order for other supportive therapy (eg, anti-tussive, decongestant) 3. Lactic acidosis -- Lactic acid appears to down trending 4. Chronic diastolic CHF: euvolemia -- Will resume oral lasix 5. HTN: normotensive -- On metoprolol with holding parameters 6. HLD: -- On crestor Prophylaxis: DVT- enoxaparin Code Status: Full Code [facility] EMERGENCY PHYSICIAN STAFF [facility] 2023-02-03 20:29:24 Formatting of this n ote is different from the original. MEDICINE [facility] ADMIT H&P Date of Service: 02/03/2023 CHIEF COMPLAINT: chest pain History of Present Illness 62 y omale with pmh of CHF, COPD, HLD, HTN who presents to the ED secondary to intermittent chest pain that started about 3 weeks but has been getting progressive worse (noticed increased frequency). Left sided chest pain. Doesn't matter activity. Associated symptoms: dyspnea, palpitation -nausea/vomiting 1 pk/2 days 6 pack/week, 3-4 day, last drink evening Last episode: today sitting house. No pain +blurry vision +cough (productive, clear) -long distance, heartburn, heavy object PAST MEDICAL HISTORY CHF COPD HTN HLD Past Surgical History None Past Family History No history of heart attack ALLERGIES No Known Allergies MEDICATIONS No current facility-administered medications on file prior to encounter. Current Outpatient Medications on File Prior to Encounter Medication Sig Dispense Refill furosemide (LASIX) 40 mg tablet Take 1 tablet by mouth in the morning. metoprolol succinate XL 50 mg 24 hr tablet Take 1 tablet by mouth in the morning. rosuvastatin 10 mg CpSP Take by mouth. sacubitriL-valsartan (ENTRESTO) 49-51 mg tablet Take by mouth 2 (two) times daily. SOCIAL HISTORY Social History Socioeconomic History Marital status: Review of Systems Eyes: Positive for visual disturbance. Respiratory: Positive for cough and shortness of breath. Cardiovascular: Positive for chest pain and palpitations. PHYSICAL EXAMINATION Vitals: 02/03/23 1630 02/03/23 1750 02/03/23 1932 02/03/23 1950 BP: 121/82 (!) 139/91 Pulse: 108 82 77 Resp: 19 13 18 Temp: 36.7 ?C (98.1 ?F) SpO2: 99% 97% 95% Weight: 62 kg (136 lb 9.6 oz) Height: 1.702 m (5' 7") Physical Exam LABS - reviewed pertinent labs as below: Reviewed IMAGING - reviewed, pertinent results as below: PROCEDURE: CT CHEST WITH CONTRAST- CHEST PE PROTOCOL CLINICAL INDICATION: 62-year-old male with PE suspected, intermediate prob, positive D-dimer Comparison: Chest x-ray 02/03/2023 TECHNIQUE: Volumetric helical CT angiogram was performed of the chest (lung apices to bases) with IV contrast. Images were reconstructed at 1.25 mm slice thickness. Corresponding axial, sagittal and coronal MIP images were performed. Axial MIPs and coronal and sagittal MPR images were generated and reviewed.. FINDINGS: Devices: None HEART AND GREAT VESSELS: The opacification of the pulmonary vasculature is appropriate. No filling defects are seen through the level of the segmental pulmonary arteries.The pulmonary trunk is normal in caliber. The thoracic aorta is normal in caliber with Mild atherosclerotic calcifications. There are mild calcifications of the coronary vessels. The heart is normal in size. No pericardial abnormalities are identified. The RV to LV is normal. MEDIASTINUM AND LOWER NECK: No central airway lesions are detected. The esophagus is within normal limits. The included thyroid gland appears normal. LYMPH NODES: Scattered small lymph nodes in both sides of the mediastinum and hilar regions. No evidence of intrathoracic lymphadenopathy. LUNGS AND PLEURA: The lungs are well-expanded and clear. Left upper lung lobe subcentimeter calcified granuloma. Mild emphysematous changes. No suspicious nodules. No pleural abnormality detected. VISUALIZED UPPER ABDOMEN: The included solid organs and hollow viscus appear within normal limits. OSSEOUS STRUCTURES AND SOFT TISSUES: Bone island at L1. Mild degenerative changes with lower thoracic osteophytes. The soft tissues appear normal. IMPRESSION No evidence of acute or chronic pulmonary embolism through the level of the subsegmental branches. EXAM: XR CHEST 1 VW COMPARISON: None available. HISTORY: chest pain FINDINGS: Support devices: None. Lungs/pleura: Lung volumes are normal. There is no focal consolidation. Pulmonary vascularity appears normal as well. No pleural effusion or pneumothorax identified. Heart/Mediastinum: The cardiac silhouette is normal in size. Atherosclerotic calcification is noted in the aortic arch. IMPRESSION No acute cardiopulmonary process. EKG: sinus tachycardia ASSESSMENT/PLAN Dieter Choudhury is a 62 year old male with PMH as listed above, admitted to the hospital with: 1. Chest pain: So, far EKG and troponin are negative for an acute myocardial infarction. -- Will order pain control, oxygen, nitroglycerin prn, and aspirin. -- Will continue to trend the troponin -- Echocardiogram -- Cardiology has been consulted. 2. CHF (unknown ejection fraction): appears euvolemic -- Will resume metoprolol and furosemide -- Echocardiogram is pending 3. COPD: stable -- Duoneb as needed 4. HTN: -- Will continue with metoprolol HLD: -- Will continue with rosuvastatin. -- AM lipid panel 6. Current smoker: spoke for greater than 3 minutes about smoking cessation. At this time, patient refuse smoking cessation therapy. Prophylaxis: DVT- enoxaparin Code Status: addressed: [facility] EMERGENCY PHYSICIAN STAFF [facility] Notes Date/Time Note Provider Source Clay Barroso [facility]2025-02-11 00:00:00 Clay Barroso [facility]2025-02-10 14:55:44 - Chief Complaint Patient presents with Follow-up Hospitalization Hospital follow up for COPD Aletha Valentine LVN Y Reich [id number] 05:09:51 Problem: Falls, Risk of Goal: Absence of falls Outcome: Progressing as expected Problem: Pain Goal: Control of pain at or below patient's documented comfort goal Outcome: Progressing as expected Goal: Reduction in pain sensation Outcome: Progressing as expected Y Fermin [place] 101475-02-05 14:08:08 Patient ambulated around nursing x1. O2 sat were maintained at 92-93% on room air. Max HR was 104. Y Trotter [facility]sddrt1806-24-09 08:26:14 Problem: Falls, Risk of Goal: Absence of falls Outcome: Progressing as expected Problem: Discharge Planning Goal: Adequate for discharge Outcome: Progressing as expected Goal: Effective communication Outcome: Progressing as expected Problem: Infection, Risk of or Actual Goal: Absence of infection Outcome: Progressing as expected Problem: Pain Goal: Control of pain at or below patient's documented comfort goal Outcome: Progressing as expected Goal: Reduction in pain sensation Outcome: Progressing as expected Problem: Respiratory Function - Impaired Goal: Able to cough effectively Outcome: Progressing as expected Goal: Adequate oxygenation Outcome: Progressing as expected Goal: Adequate work of breathing Outcome: Progressing as expected Goal: Patent airway Outcome: Progressing as expected Problem: Tissue Perfusion - Altered, Risk of Goal: Hemodynamically stable Outcome: Progressing as expected Problem: Venous Thromboembolism, (actual or risk of) Goal: Absence of venous thromboembolism (Risk) Outcome: Progressing as expected [facility] Brfrpa3511-15-22 20:03:32 Problem: Falls, Risk of Goal: Absence of falls Outcome: Progressing as expected Problem: Discharge Planning Goal: Adequate for discharge Outcome: Progressing as expected Goal: Effective communication Outcome: Progressing as expected Problem: Infection, Risk of or Actual Goal: Absence of infection Outcome: Progressing as expected Problem: Pain Goal: Control of pain at or below patient's documented comfort goal Outcome: Progressing as expected Goal: Reduction in pain sensation Outcome: Progressing as expected Problem: Respiratory Function - Impaired Goal: Able to cough effectively Outcome: Progressing as expected Goal: Adequate oxygenation Outcome: Progressing as expected Goal: Adequate work of breathing Outcome: Progressing as expected Goal: Patent airway Outcome: Progressing as expected Problem: Tissue Perfusion - Altered, Risk of Goal: Hemodynamically stable Outcome: Progressing as expected Problem: Venous Thromboembolism, (actual or risk of) Goal: Absence of venous thromboembolism (Risk) Outcome: Progressing as expected CUTTER Demetri Driscoll [facility] [id number] 18:25:25 Problem: Falls, Risk of Goal: Absence of falls Outcome: Progressing as expected Problem: Discharge Planning Goal: Adequate for discharge Outcome: Progressing as expected Goal: Effective communication Outcome: Progressing as expected Problem: Infection, Risk of or Actual Goal: Absence of infection Outcome: Progressing as expected Problem: Pain Goal: Control of pain at or below patient's documented comfort goal Outcome: Progressing as expected Goal: Reduction in pain sensation Outcome: Progressing as expected Problem: Respiratory Function - Impaired Goal: Able to cough effectively Outcome: Progressing as expected Goal: Adequate oxygenation Outcome: Progressing as expected Goal: Adequate work of breathing Outcome: Progressing as expected Goal: Patent airway Outcome: Progressing as expected Problem: Tissue Perfusion - Altered, Risk of Goal: Hemodynamically stable Outcome: Progressing as expected Problem: Venous Thromboembolism, (actual or risk of) Goal: Absence of venous thromboembolism (Risk) Outcome: Progressing as expected [place] [address]-02-04 17:01:06 Patient admitted to 2104 for diagnosis of copd Patient agrees to admission, discussed plan of care with patient and family. Patient is awake, alert, oriented, resp reg unlabored, color appropriate for race, PIV intact No adverse reaction to medications administered while in ED Belongings with patient to unit [facility] Sarai Bennett [place] [address]-02-04 16:59:05 Nurse Report Report given to kiley. Chief complaint, assessment findings, infusion verify and orders reviewed. Plan of care discussed. Patient/family members verbalized understanding. Sarai Bennett RN [place] [address]-02-04 13:02:17 Report to Sarai BOWEN. [facility] Shital Calvillo [facility] CenterPhgnut4967-56-57 10:22:40 Pt arrived ambulatory for cough x4days, media clerk thinks he may have pneumonia advised to go to pcp but unable to. Pt tachycardic in triage 152bpm. Hx COPD CUTTER Chani Childers [facility]Cl[facility] HospitalTvnnpb5261-02-16 10:11:00 AdmissionCare Guideline: Chronic Obstructive Pulmonary Disease (COPD), Inpatient Based on the indications selected for the patient, the bed status of Inpatient was determined to be MET The following indications were selected as present at the time of evaluation of the patient: - Clinical Indications for Admission to Inpatient Care - Admission is indicated for 1 or more of the following: - Hemodynamic instability, as indicated by 1 or more of the following: - Vital sign abnormality not readily corrected by appropriate treatment, as indicated by 1 or more of the following: - Tachycardia that persists despite appropriate treatment (eg, volume repletion, treatment of pain, treatment of underlying cause) - Tachycardia, as indicated by 1 or more of the following: - Heart rate greater than 100 beats per minute in adult or child age 6 years or older AdmissionCare documentation entered by: Ranjana Cade [facility], 28th edition, Copyright ? 2023 [facility] CenterEL[facility] [employer] [facility] All Rights Reserved. 0519-22-14C07:50:39-06:00 C[facility]strpj0651-11-62 00:08:36 Pt given printed and verbal discharge instructions regarding right lower quadrant pain, tachycardia, enteritis, diarrhea Prescriptions provided: START taking these medications dicyclomine 10 mg capsule Commonly known as: BENTYL Take 1 capsule by mouth 3 (three) times daily as needed for Abdominal pain. methocarbamoL 500 mg tablet Commonly known as: ROBAXIN Take 1 tablet by mouth 3 (three) times daily as needed for Pain (scale 7-10). Pt verbalized understanding of instructions, pt awake alert oriented, resp reg unlabored, skin w/d, color appropriate for race, moves all ext well,pt encouraged to follow up with pcp Advised to seek medical attention for new/prolonged/worsening of symptoms No adverse reaction to meds given in ER noted upon discharge PIV d'cd, dressing to site, catheter in tact. Awake, alert oriented, resp reg unlabored, skin w/d, pt leaving amb with steady gait, in no apparent distress CUTTER Nicky Nix [facility] [id number] 22:09:20 Nurse Report Report given to JESSI Nix. Chief complaint, assessment findings, infusion verify and orders reviewed. Plan of care discussed with both nurses. Linda Pagan RN [facility]2024-12-27 21:35:14 Pt's step-daughter Katina Dos Santos called for pt update, pt verified ok to give information. She left number and asked if we could contact her if pt will be admitted. Katina Dos Santos: [facility] Mohini Son [facility] CenterNykaue9934-78-80 19:06:22 CC: R flank and hip pain for 2 days. Patient c/o burning and pain with urination, cough, diarrhea. Patient states "my hips always hurts when I work too much." Denies major abdominal surgeries. PMH: COPD; blood clot in L leg [facility] Heidi Mock [facility] CenterDavmfs9957-71-79 14:58:[id number] [place] [address] PATIENT NAME: DIETER CHOUDHURY ADMIT DATE: 04/17/24 ACCOUNT NO: [id number] ROOM NO: AGE: 63 REPORT TYPE: OPERATIVE REPORT SEX: M ADMITTING PHYSICIAN: ATTENDING PHYSICIAN:Remi Espinal MD OPERATION DATE: 04/17/2024 PROCEDURE PERFORMED: Peripheral angiogram. INDICATION: Severe peripheral vascular disease with pain in the left lower extremity. ACCESS: Right common femoral artery, a 6-Nauruan closed with manual pressure. COMPLICATIONS: None. BLEEDING: Less than 50 mL. TOTAL SEDATION TIME: 45 minutes, used fentanyl and Versed. DESCRIPTION OF PROCEDURE: After risks, benefits, and alternatives were explained, patient agreed to proceed and signed informed consent, patient was brought into cardiac catheterization laboratory, prepped and draped in sterile fashion. Then, I accessed right common femoral artery using micropuncture kit under ultrasound guidance as well as fluoroscopy, and placed 6-Nauruan Starr sheath and took an Omniflush catheter and crossed to the other side and placed the catheter in the right common iliac artery. Performed a distal aortogram with runoff and then tried to give systemic heparin to assure ACT level above 250 and then exchanged for 6-Nauruan Destination sheath and I was not able to the other side due to the stiffness of the distal aorta, so procedure was aborted, removed the catheter and the sheath. Manual pressure was used for closure with good hemostasis. FINDINGS: 1. The distal aorta was widely patent. 2. The right lower extremity, right common iliac and external iliac artery were patent, right common femoral has a 60 70% focal stenosis. Profunda is patent and the SFA has diffuse 20%, then below the knee triple vessel with luminal irregularities. 3. Left lower extremity, the common iliac has 40% ostially and then external iliac is patent and then becomes totally occluded and then the common femoral has about 60-70% stenosis. Profunda is patent and the SFA on the left has diffuse 20-30% stenosis. Tibial vessels below the knee is with luminal irregularities only. 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 PATIENT NAME: DIETER CHOUDHURY PLAN: To bring the patient back and access the SFA and go up and over to try to do a retrograde intervention in 4-6 weeks. Dictated By: Remi Espinal MD Date Dictated: 04/17/2024 14:58:44 Date Transcribed: 04/17/2024 16:43:54 /[facility] Receipt ID: [id number] Authenticated by Remi Espinal MD On 04/25/2024 08:32:25 PM at 0832 PATIENT NAME: DIETER CHOUDHURY 14:[id number]- [id number] [place] [id number] PATIENT NAME: DIETER CHOUDHURY ADMIT DATE: ACCOUNT NO: [id number] ROOM NO: AGE: 63 REPORT TYPE: eELECTROCARDIOGRAM REPORT SEX: M ADMITTING PHYSICIAN: ATTENDING PHYSICIAN:Remi Espinal MD Order: [id number] Test Reason : PREOP Test Date/Time Stamp: MonApr 15 2024 14:11:44 Blood Pressure : / mmHG Vent. Rate : 097 BPM Atrial Rate : 097 BPM P-R Int : 164 ms QRS Dur : 102 ms QT Int : 402 ms P-R-T Axes : 065 092 047 degrees QTc Int : 510 ms Normal sinus rhythm Rightward axis Prolonged QT Abnormal ECG No previous ECGs available Confirmed by MD JESU, AISSATOU ([id number]) on 04/15/2024 3:02:48 PM Referred By: Remi Espinal Confirmed by:AISSATOU NAILS MD at 1502 PATIENT NAME: DIETER CHOUDHURY 11:38:56 Chief Complaint Patient presents with Physical Did lab work last Monday Aletha Valentine LVN [facility]2023-09-13 15:53:19 3rd attempt to notify patient, LVM patient called back, discussed Echo results and recommendations. Stated he needed a refill on Metoprolol 30 days with no refillsent to [facility] [id number] [place] [address] Has appointment scheduled with Dr Hernandez next week 02/28 Discussed BP log, stated he can't find his BP monitor. If he finds it or buys a new one - asked to bring to appointment for correlation to clinic VS machine. OK to refill Metoprolol 50mg daily per Dr Diamond,. [place] [address]-09-13 12:36:35 2nd attempt to contact patient. LVM to return call to clinic to discuss results. Jorje Yoo [place] [address]-09-08 15:02:21 Images from the original note were not included. Attempted to contact patient with results/recommendations. LVM for patient to return call to [phone]. Luciano Bauer MD P Cardiology Nurse Preserved LV systolic function noted. Mild enlarged ascending aorta noted. No significant valve abnormalities noted. Follow-up with Dr Hernandez as already planned. [place] [address]-09-06 11:00:00 Preserved LV systolic function noted. Mild enlarged ascending aorta noted. No significant valve abnormalities noted. Follow-up with Dr Hernandez as already planned. [place] [address]-08-28 14:39:51 ----- Message from Vincent Ceballos sent at 02/06/2023 8:03 AM CDT ----- Regarding: RE: Follow up appt Pt f/u and echo have been scheduled. ----- Message ----- From: Luciano Bauer MD Sent: 02/05/2023 6:16 PM CDT To: [facility] Cardiology Pss Subject: Follow up appt Needs follow up with Dr Hernandez in 2-4 weeks. He also needs Echo. Please ian. Orders placed. [place] [address]-08-26 12:31:31 Problem: Discharge Planning Goal: Adequate for discharge Outcome: Adequate for discharge Goal: Adequate to move to next level of care Outcome: Adequate for discharge Goal: Knowledge of medication management Outcome: Adequate for discharge Problem: Cardiac Output - Decreased Goal: Absence of signs and symptoms of decreased cardiac output Outcome: Adequate for discharge Problem: Falls, Risk of Goal: Absence of falls Outcome: Adequate for discharge Problem: Pain Goal: Control of pain at or below patient's documented comfort goal Outcome: Adequate for discharge Goal: Reduction in pain sensation Outcome: Adequate for discharge Problem: Skin integrity Impaired (Risk or Actual) Goal: Prevention of new skin breakdown Outcome: Adequate for discharge Problem: Tissue Perfusion, Cardiopulmonary - Altered Goal: Circulatory function within specified parameters Outcome: Adequate for discharge [facility] Kindra Ennis [facility] CenterXmgluo1714-93-66 21:41:15 Problem: Discharge Planning Goal: Adequate for discharge Outcome: Progressing as expected Goal: Adequate to move to next level of care Outcome: Progressing as expected Goal: Knowledge of medication management Outcome: Progressing as expected Problem: Cardiac Output - Decreased Goal: Absence of signs and symptoms of decreased cardiac output Outcome: Progressing as expected Problem: Falls, Risk of Goal: Absence of falls Outcome: Progressing as expected Problem: Pain Goal: Control of pain at or below patient's documented comfort goal Outcome: Progressing as expected Goal: Reduction in pain sensation Outcome: Progressing as expected Problem: Skin integrity Impaired (Risk or Actual) Goal: Prevention of new skin breakdown Outcome: Progressing as expected Problem: Tissue Perfusion, Cardiopulmonary - Altered Goal: Circulatory function within specified parameters Outcome: Progressing as expected [facility]unnhg8339-82-45 18:16:45 Nurse Report Report given to Angela BOWEN. Chief complaint, assessment findings reviewed. Plan of care discussed at bedside with patient and both nurses. Patient/family members verbalized understanding. Bradford Mancini RN T Bradford Mancini [facility] CenterYkoizj6689-18-68 14:08:45 Chest Pain Note Pt placed immediately into room for c/o chest pain that started 2-3 weeks ago. Also reports dizziness. Hx of Cardiac cath, COPD, HTN. EKG done on arrival to room. Placed on continuous cardiac, blood pressure and oxygen saturation monitoring. Dr. Ley at bedside. PIV placed, labs drawn. Please see cardiac assessment for details. Will continue to monitor. Bradford Mancini RN [place] [address]-08-25 14:00:26 Patient arrived ambulatory with c/o of sharp chest pain that started 3-4 weeks ago and some shortness of breath. Hx: CHF, COPD, [place] [id number] 13:50:00Associated Order(s): EKG-12 Lead ROUTINE ONCE Pre-Procedure Diagnose(s): Chest pain, unspecified type Post-Procedure Diagnose(s): Chest pain, unspecified type [facility] Emergency Department Note Patient Name: Dieter Choudhury Date of : 1960 62 year old male Treatment Room: Room/bed info not found Primary Care Physician: No primary care provider on file. Patient Escorted by: Family [5] Mode of Arrival: Personal means [1] EMS Treatment Prior to ED Arrival: Travel and Exposure Screening: Symptoms Does patient have any of these symptoms?: (not recorded) Exposure Screening Has patient had contact with someone with a communicable disease in the last month?: (not recorded) Diseases exposed to:: (not recorded) Is Patient ?: (not recorded) Exposure Date: (not recorded) Chief Complaint: Chief Complaint Patient presents with Chest Pain History of Present Illness: HPI Dieter Choudhury is a 62 year old male with PMHx of CHF and COPD presenting with intermittent chest pain, SOB and palpitations for the past approximately 3 weeks, but worsening over the past few days. Patient reports that his symptoms have been worse with exertion and seem to improve with rest, although still present with rest just less severe. Patient reports seen at OSH and was told that he has approximately 20% EF. Past Medical History/Immunizations: No past medical history on file. Allergies: Not on File Past Social History: Substance & Sexual Activity No substance use or sexual activity history on file. Past Surgical History: No past surgical history on file. Review of Systems: Review of Systems Constitutional: Positive for activity change, appetite change and fatigue. Negative for fever. HENT: Negative for congestion, facial swelling and rhinorrhea. Eyes: Negative for photophobia and visual disturbance. Respiratory: Positive for chest tightness and shortness of breath. Negative for apnea, cough, choking, wheezing and stridor. Cardiovascular: Positive for chest pain, palpitations and leg swelling. Gastrointestinal: Positive for nausea. Negative for abdominal distention, abdominal pain, anal bleeding, blood in stool, constipation, diarrhea, rectal pain and vomiting. Genitourinary: Negative for dysuria. Musculoskeletal: Negative for neck pain. Neurological: Negative for dizziness, tremors, seizures, syncope, facial asymmetry, speech difficulty, weakness, light-headedness, numbness and headaches. Physical Exam: ED Triage Vitals [02/03/23 1401] Weight 61.2 kg (135 lb) Actual or estimated Estimated by patient/family report Height 1.676 m (5' 6") BP 118/84 Pulse 130 Resp 22 Temp 36.9 ?C (98.4 ?F) Temp src SpO2 98 % Measured on Room air BP 130/79 | Pulse 98 | Temp 36.9 ?C (98.4 ?F) | Resp 21 | Ht 1.676 m (5' 6") | Wt 61.2 kg (135 lb) | SpO2 94% | BMI 21.79 kg/m? Physical Exam Vitals and nursing note reviewed. Constitutional: General: He is not in acute distress. Appearance: He is well-developed. He is not diaphoretic. HENT: Head: Normocephalic and atraumatic. Mouth/Throat: Pharynx: No oropharyngeal exudate. Eyes: General: No scleral icterus. Right eye: No discharge. Neck: Vascular: No JVD. Cardiovascular: Rate and Rhythm: Normal rate and regular rhythm. Heart sounds: Normal heart sounds. No murmur heard. No friction rub. No gallop. Pulmonary: Effort: Pulmonary effort is normal. No respiratory distress. Breath sounds: Normal breath sounds. No stridor. No wheezing or rales. Chest: Chest wall: No tenderness. Abdominal: General: Bowel sounds are normal. There is no distension. Palpations: Abdomen is soft. There is no mass. Tenderness: There is no abdominal tenderness. There is no guarding or rebound. Musculoskeletal: Cervical back: Normal range of motion and neck supple. Lymphadenopathy: Cervical: No cervical adenopathy. Neurological: Mental Status: He is alert and oriented to person, place, and time. Cranial Nerves: No cranial nerve deficit. Coordination: Coordination normal. Radiology: CT CHEST PULMONARY ANGIOGRAM Preliminary Result PROCEDURE: CT CHEST WITH CONTRAST- CHEST PE PROTOCOL CLINICAL INDICATION: 62-year-old male with PE suspected, intermediate prob, positive D-dimer Comparison: Chest x-ray 02/03/2023 TECHNIQUE: Volumetric helical CT angiogram was performed of the chest (lung apices to bases) with IV contrast. Images were reconstructed at 1.25 mm slice thickness. Corresponding axial, sagittal and coronal MIP images were performed. Axial MIPs and coronal and sagittal MPR images were generated and reviewed.. FINDINGS: Devices: None HEART AND GREAT VESSELS: The opacification of the pulmonary vasculature is appropriate. No filling defects are seen through the level of the segmental pulmonary arteries.The pulmonary trunk is normal in caliber. The thoracic aorta is normal in caliber with Mild atherosclerotic calcifications. There are mild calcifications of the coronary vessels. The heart is normal in size. No pericardial abnormalities are identified. The RV to LV is normal. MEDIASTINUM AND LOWER NECK: No central airway lesions are detected. The esophagus is within normal limits. The included thyroid gland appears normal. LYMPH NODES: Scattered small lymph nodes in both sides of the mediastinum and hilar regions. No evidence of intrathoracic lymphadenopathy. LUNGS AND PLEURA: The lungs are well-expanded and clear. Left upper lung lobe subcentimeter calcified granuloma. Mild emphysematous changes. No suspicious nodules. No pleural abnormality detected. VISUALIZED UPPER ABDOMEN: The included solid organs and hollow viscus appear within normal limits. OSSEOUS STRUCTURES AND SOFT TISSUES: Bone island at L1. Mild degenerative changes with lower thoracic osteophytes. The soft tissues appear normal. IMPRESSION No evidence of acute or chronic pulmonary embolism through the level of the subsegmental branches. Preliminary Report Dictated by Resident: Emory Diego XR CHEST 1 VW Final Result EXAM: XR CHEST 1 VW COMPARISON: None available. HISTORY: chest pain FINDINGS: Support devices: None. Lungs/pleura: Lung volumes are normal. There is no focal consolidation. Pulmonary vascularity appears normal as well. No pleural effusion or pneumothorax identified. Heart/Mediastinum: The cardiac silhouette is normal in size. Atherosclerotic calcification is noted in the aortic arch. IMPRESSION No acute cardiopulmonary process. Lab Results: Lab Results CBC WITH DIFF - Abnormal Result Value Ref Range WBC 15.58 (*) 4.20 - 10.70 10*3/?L RBC 4.26 4.26 - 5.52 10*6/?L HGB 14.2 12.2 - 16.4 g/dL HCT 41.2 38.4 - 49.3 % MCV 96.7 (*) 81.7 - 95.6 fL MCH 33.3 (*) 26.1 - 32.7 pg MCHC 34.5 31.2 - 35.0 g/dL RDW-SD 47.7 38.5 - 51.6 fL RDW-CV 13.3 12.1 - 15.4 % PLT 162 150 - 328 10*3/?L MPV 13.6 (*) 9.8 - 13.0 fL IPF % 29.0 (*) 1.2 - 10.7 % NRBC/100 WBC 0.0 0.0 - 10.0 /100 WBCs NRBC x10^3 <0.01 10*3/?L GRAN MAT (NEUT) % 63.1 % IMM GRAN % 0.70 % LYMPH % 26.2 % MONO % 8.3 % EOS % 0.8 % BASO % 0.9 % GRAN MAT x10^3(ANC) 9.83 (*) 1.99 - 6.95 10*3/uL IMM GRAN x10^3 0.11 (*) 0.00 - 0.06 10*3/uL LYMPH x10^3 4.08 (*) 1.09 - 3.23 10*3/uL MONO x10^3 1.29 (*) 0.36 - 1.02 10*3/uL EOS x10^3 0.13 0.06 - 0.53 10*3/uL BASO x10^3 0.14 (*) 0.01 - 0.09 10*3/uL PLSMACYTD LYMPHS Rare REACT LYMPHS Moderate GIANT PLATELETS Present (*) (none) COMP. METABOLIC PANEL (74185) - Abnormal NA 136 135 - 145 mmol/L K 3.6 3.5 - 5.0 mmol/L CL 94 (*) 98 - 108 mmol/L CO2 TOTAL 27 23 - 31 mmol/L AGAP 15 2 - 16 BUN 8 7 - 23 mg/dL GLUCOSE 91 70 - 110 mg/dL CREATININE 0.70 0.60 - 1.25 mg/dL TOTAL BILI 0.5 0.1 - 1.1 mg/dL CALCIUM 9.2 8.6 - 10.6 mg/dL T PROTEIN 8.1 6.3 - 8.2 g/dL ALBUMIN 4.8 3.5 - 5.0 g/dL ALK PHOS 57 34 - 122 U/L ALTv 48 5 - 50 U/L AST(SGOT) 70 (*) 13 - 40 U/L eGFR 114.3 mL/min/1.73m2 D-DIMER - Abnormal D-DIMER 0.89 (*) <0.41 ?g/mL (FEU) TROPONIN I - Normal TROPONIN I <0.012 <=0.034 ng/mL N-TERMINAL PRO-BNP - Normal NT-proBNP 42 <=125 pg/mL COVID-19 (ID NOW RAPID TESTING) EKG: If EKG completed, see Procedure Note. Orders and Treatments: Orders Placed This Encounter Procedures XR CHEST 1 VW CBC WITH DIFF COMP. METABOLIC PANEL (06217) TROPONIN I N-TERMINAL PRO-BNP D-DIMER Orders Placed This Encounter Medications DISCONTD: aspirin tablet 325 mg aspirin chewable tablet 324 mg First Provider Eval: ED Events Date/Time Event User Comments 02/03/231351 Medical Screening Begins JORJE LEY MD -- 02/03/23 135 First Provider Evaluation JORJE LEY MD -- No notes of EC Admission Criteria type on file. ED COURSE Dieter Choudhury is a 62 year old male presenting with with symptoms of chest pain as above, worse withexertion. Patient's labs and imaging reviewed, findings discussed with patient and family. Plan foradmission for further management. Patient accepted by admitting hospitalist. Diagnosis/Impression as of 02/03/23 1353 Chest pain, unspecified type Procedures: EKG-12 Lead ROUTINE ONCE Date/Time: 02/03/2023 6:10 PM Performed by: Jorje Ley MD Authorized by: Jorje Ley MD ECG reviewed by ED Physician in the absence of a media clerk: yes Rate: ECG rate: 114 ECG rate assessment: tachycardic Rhythm: Rhythm: sinus rhythm Ectopy: Ectopy: none QRS: QRS axis: Normal QRS intervals: Normal QRS conduction: normal ST segments: ST segments: Normal T waves: T waves: non-specific MDM: Medical Decision Making Dieter Choudhury is a 62 year old male presenting with with symptoms of chest pain as above, worse withexertion. Patient's labs and imaging reviewed, findings discussed with patient and family. Plan foradmission for further management. Patient accepted by admitting hospitalist. Problems Addressed: Chest pain, unspecified type: acute illness or injury Amount and/or Complexity of Data Reviewed Labs: ordered. Radiology: ordered. Risk OTC drugs. Prescription drug management. Flowsheet Documentation: Scoring Tools: No data recorded Disposition/Condition: ED Disposition ED Disposition Admit - Observation Condition -- Comment Is (or was) this a planned re-admission?: No Treatment Team: [facility] [[id number]] Is this patient COVID positive or a patient under investigation (PUI)?: No Discharge Medications: Patient's Medications No medications on file Follow-up: Electronically signed by: Jorje Ley MD 02/03/231811 T [facility] - [id number] 00:00:00 Clay Barroso [facility]
--- NOTE | 2024-10-06 19:19 | RAD REPORT ---
EXAMINATION: LUMBAR SPINE MULTIPLE VIEWS CLINICAL INDICATION: Male, 63 years old. PAIN TECHNIQUE: Multiple views of the lumbar spine were obtained. COMPARISON: No prior exam. FINDINGS: For purposes of this dictation, it is assumed that there are 5 lumbar type vertebral bodies. ALIGNMENT: Mild levoscoliosis lumbar spine. BONES: Vertebral bodies are normal in height. No aggressive osseous lesions. DISCS: Diffuse disc thinning is present with anterior posterior osteophytes at multiple levels. IMPRESSION: Mild degenerative levoscoliosis with [id number] lower lumbar degenerative changes.
[2024-10-06] MEDS ORDERED: KETOROLAC 30 MG/ML INJ ONE (19:29)
[2024-10-06] MEDS ORDERED: dexAMETHasone 10 MG/ML VIAL ONE (19:29)
[2024-10-06] MEDS ORDERED: HYDROCODONE/APAP 5/325 MG TAB ONE (19:30)
--- NOTE | 2024-10-06 20:26 | EDPHYS ---
Physician Documentation [facility] Name: Jeb Choudhury Age: 63 yrs Sex: Male : 1960 Arrival Date: 10/06/2024 Time: 17:04 Bed DX1 Private MD: ED Physician Drake Colon HPI: 10/06 17:27 This 63 yrs old Male presents to ER via Ambulatory with complaints of Back dr5 Injury, Back Pain. 17:27 The patient presents with pain that is acute. The symptoms are located in the low back, dr5 lumbar area. Onset: The symptoms/episode began/occurred acutely. Patient is a 63 year old male with history of COPD (daily smoker), CHF, HTN. Historical: - Allergies: 17:22 No Known Allergies; me1 - PMHx: 17:22 Chronic obstructive lung disease; Chronic systolic heart failure; Hypertensive disorder;me1 - PSHx: 17:22 Coronary Angioplasty; me1 - Immunization history:: Adult Immunizations up to date. - Infectious Disease History:: Denies. - Social history:: Smoking status: Patient reports the use of cigarette tobacco products, smokes one pack cigarettes per day. Patient uses alcohol, on a daily basis. ROS: 20:36 Constitutional: as per hpi dr5 Exam: 20:36 Constitutional: This is a well developed, well nourished patient who is awake, alert, dr5 and in no acute distress. Head/Face: Normocephalic, atraumatic. ENT: Nares patent. No nasal discharge, no septal abnormalities noted. Tympanic membranes are normal and external auditory canals are clear. Oropharynx with no redness, swelling, or masses, exudates, or evidence of obstruction, uvula midline. Mucous membranes moist. Neck: Trachea midline, no thyromegaly or masses palpated, and no cervical lymphadenopathy. Supple, full range of motion without nuchal rigidity, or vertebral point tenderness. No Meningismus. Chest/axilla: Normal chest wall appearance and motion. Nontender with no deformity. No lesions are appreciated. Cardiovascular: Regular rate and rhythm with a normal S1 and S2. Normal PMI, no JVD. No pulse deficits. Respiratory: Lungs have equal breath sounds bilaterally, clear to auscultation. No rales, rhonchi or wheezes noted. No increased work of breathing, no retractions or nasal flaring. Skin: Warm, dry with normal turgor. Normal color with no rashes, no lesions, and no evidence of cellulitis. Vital Signs: 17:19 BP 154 / 89; Pulse 102; Resp 19; Temp 98.2; Pulse Ox 94% on R/A; Weight 61.23 kg; me1 Height 5 ft. 7 in. ; Pain 8/10; 17:19 Body Mass Index 21.14 (61.23 kg, 170.18 cm) me1 17:19 Pain Scale: Adult me1 MDM: 17:11 Medical Screening Exam initiated dr5 10/06 17:26 Order name: Lumbar Spine (3 Views) XRAY; Complete Time: : dr5 Administered Medications: 19:37 Drug: Ketorolac IM 30 mg IM once Route: IM; Site: right deltoid; ha1 19:37 Drug: Dexamethasone IM 10 mg IM once Route: IM; Site: left deltoid; ha1 19:38 Drug: HYDROcodone-acetaminophen PO 5 mg-325 mg 2 tabs PO once Route: PO; ha1 Disposition Summary: 10/06/24 20:26 Discharge Ordered Notes: Location: Home dr5 Condition: Stable dr5 Diagnosis - Low back pain dr5 Followup: dr5 - With: Emergency Department - When: As needed - Reason: Worsening of condition Followup: dr5 - With: Private Physician - When: 1 - 2 days - Reason: Recheck today's complaints, Continuance of care, Re-evaluation by your physician Discharge Instructions: - Discharge Summary Sheet dr5 - Acute Back Pain, Adult dr5 Forms: - Medication Reconciliation Form dr5 - Prescription Opioid Use dr5 - Patient Portal Instructions dr5 - Leadership Thank You Letter dr5 Prescriptions: - Ibuprofen 800 mg Oral Tablet - take 1 tablet ORAL route every 12 hours As needed take with food; 20 tablet; dr5 Refills: 0, Product Selection Permitted - Cyclobenzaprine 10 mg Oral Tablet - take 1 tablet ORAL route every 8 hours As needed; 30 tablet; Refills: 0, dr5 Product Selection Permitted - Tramadol 50 mg Oral Tablet - take 1 tablet ORAL route every 8 hours as needed; 12 tablet; Refills: 0, dr5 Product Selection Permitted Signatures: Dispatcher [employer] Fernanda Santamaria RN RN 1 Georgina Yoo RN RN ky1 Walter Medina FNP-C FNP-5 Corrections: (The following items were deleted from the chart) 17:23 17:22 PSHx: None; me1 me1
--- NOTE | 2024-10-06 20:26 | ER ---
Nurse's Notes [facility] Name: Jeb Choudhury Age: 63 yrs Sex: Male : 1960 Arrival Date: 10/06/2024 Time: 17:04 Bed DX1 Private MD: Diagnosis: Low back pain Presentation: 10/06 17:19 Chief complaint: Patient states: hx of lower back pain that is worse over the past me1 couple of days. pain 8/10. Coronavirus screen: Vaccine status: Patient reports receiving the 2nd dose of the covid vaccine. Ebola Screen: No symptoms or risks identified at this time. Initial Sepsis Screen: Does the patient meet any 2 criteria? HR > 90 bpm. Does the patient have a suspected source of infection? No. Patient's initial sepsis screen is negative. Risk Assessment: Do you want to hurt yourself or someone else? Patient reports no desire to harm self or others. Onset of symptoms is unknown. 17:19 Method Of Ar[place] [facility] [place] Acuity: CHAD 3 me1 Historical: - Allergies: 17:22 No Known Allergies; me1 - PMHx: 17:22 Chronic obstructive lung disease; Chronic systolic heart failure; Hypertensive disorder;me1 - PSHx: 17:22 Coronary Angioplasty; me1 - Immunization history:: Adult Immunizations up to date. - Infectious Disease History:: Denies. - Social history:: Smoking status: Patient reports the use of cigarette tobacco products, smokes one pack cigarettes per day. Patient uses alcohol, on a daily basis. Screenin:00 [facility] ED Fall Risk Assessment (Adult) History of falling in the last 3 months, ha1 including since admission Yes- single mechanical fall (1 pt) Confusion or Disorientation No (0 pts) Intoxicated or Sedated No (0 pts) Impaired Gait Yes (1 pt) Mobility Assist Device Used No (0 pt) Altered Elimination No (0 pt) Score/Fall Risk Level 0 - 2 = Low Risk Oriented to surroundings, Maintained a safe environment, Educated pt \T\ family on fall prevention, incl call for assistance when getting out of bed, Hourly rounding (assess needs \T\ fall precautionary measures) done. Abuse screen: Denies threats or abuse. Denies injuries from another. Nutritional screening: No deficits noted. Tuberculosis screening: No symptoms or risk factors identified. Assessment: 20:20 Reassessment: Patient and/or family updated on plan of care and expected duration. Pain ha1 level reassessed. Patient is alert, oriented x 3, equal unlabored respirations, skin warm/dry/pink. Patient states feeling better. Patient states symptoms have improved. Vital Signs: 17:19 BP 154 / 89; Pulse 102; Resp 19; Temp 98.2; Pulse Ox 94% on R/A; Weight 61.23 kg; me1 Height 5 ft. 7 in. ; Pain 8/10; 17:19 Body Mass Index 21.14 (61.23 kg, 170.18 cm) me1 17:19 Pain Scale: Adult vt1 ED Course: 17:07 Patient arrived in ED. sj2 17:08 Walter Medina [facility]-C [facility]. dr5 17:08 Drake Colon MD is Attending Physician. dr5 17:22 Triage completed. me1 17:22 Arm band placed on Patient placed in waiting room. me1 18:54 Lumbar Spine (3 Views) XRAY In Process Unspecified. EDMS 19:37 Fernanda Garvin RN is Primary Nurse. ha1 20:00 Patient has correct armband on for positive identification. Bed in low position. Call ha1 light in reach. Side rails up X 1. Provided Education on: PLAN OF CARE. 20:48 Patient did not have IV access during this emergency room visit. ha1 Administered Medications: 19:37 Drug: Ketorolac IM 30 mg IM once Route: IM; Site: right deltoid; ha1 19:37 Drug: Dexamethasone IM 10 mg IM once Route: IM; Site: left deltoid; ha1 19:38 Drug: HYDROcodone-acetaminophen PO 5 mg-325 mg 2 tabs PO once Route: PO; ha1 Medication: 23:00 VIS not applicable for this client. ha1 Outcome: 20:26 Discharge ordered by . dr5 20:47 Discharged to home ambulatory, ha1 20:47 Condition: stable 20:47 Discharge instructions given to patient, Instructed on discharge instructions, follow up and referral plans. medication usage, Demonstrated understanding of instructions, follow-up care, medications, Prescriptions given X 3, 20:48 Patient left the ED. ha1 Signatures: Dispatcher [employer] EDMI Fernanda Garvin RN RN 1 Georgina Yoo, RN RN me1 Roxane Samaniego sj2 Walter Medina, CERTIFIED VETERINARY TECHNICIAN-C CERTIFIED VETERINARY TECHNICIAN-Cdr5 Corrections: (The following items were deleted from the chart) 17:23 17:22 PSHx: None; me1 me1
[2024-10-08 08:31] VITALS: BP 154/89; TEMP 98.2; O2SAT 94
== END 2024-10-06 20:48 | disposition home or self-care (01) ==
LOC: ER 17:04
DX: M54.50 Low back pain, unspecified (principal); F17.210 Nicotine dependence, cigarettes, uncomplicated
CPT/HCPCS: 72100; 96372; 99284; J1100